=== PATIENT | male | born 1940 | race Caucasian/White ===

== ENCOUNTER 2022-04-02 11:18 | Emergency (ER) | payer MEDICARE ==
[2022-04-02 11:37] VITALS: TEMP 98.7
[2022-04-02 11:58] LABS: Basophils % (A) 0 %; Eosinophils # (A) 0.2 k/uL (0-0.7); Eosinophils % (A) 2 %; HCT 40.1 % (39.0-53.0); HGB 14.9 gm/dL (13.0-17.5); Lymphocytes # (A) 1.5 k/uL (1.0-4.8); Lymphocytes % (A) 17 %; MCH 32.1 pg (25.0-35.0); MCHC 37.2 g/dL (31.0-37.0); MCV 86.2 fL (80.0-100.0); Mean Platelet Volume 7.5; Monocytes # (A) 0.5 k/uL (0-1.0); Monocytes % (A) 5 %; Neutrophils # (A) 6.8 k/uL (1.3-7.7); Neutrophils % (A) 74 %; Platelet Count 305 k/uL (150-450); Poikilocytosis Slight; RBC 4.66 m/uL (4.30-5.90); RDW 13.4 % (11.5-15.5); WBC 9.1 k/uL (3.8-10.6)
[2022-04-02 12:08] LABS: ALT 41 U/L (4-49); AST 44 U/L (17-59); African American GFR (CKD) >90 (>60 ml/min/1.73 sqM); Albumin 3.6 g/dL (3.5-5.0); Alkaline Phosphatase 104 U/L (38-126); Anion Gap 11 mmol/L; Blood Urea Nitrogen 27 mg/dL (9-20); Carbon Dioxide 26 mmol/L (22-30); Chloride 93 mmol/L (98-107); Glucose 327 mg/dL (74-99); Non-African American GFR(CKD) >90 (>60 ml/min/1.73 sqM); Potassium 4.2 mmol/L (3.5-5.1); Sodium 130 mmol/L (137-145); Total Bilirubin 1.6 mg/dL (0.2-1.3); Total Protein 6.7 g/dL (6.3-8.2)
[2022-04-02 12:12] LABS: INR 1.1 (<1.2); Partial Thromboplastin Time 25.7 sec (22.0-30.0); Prothrombin Time 11.6 sec (9.0-12.0)
--- NOTE | 2022-04-02 12:16 | XR ---
EXAMINATION TYPE: XR chest 2V DATE OF EXAM: 04/02/2022 COMPARISON: NONE HISTORY: Cough TECHNIQUE: Frontal and lateral views of the chest are obtained. FINDINGS: There is prominence interstitium, patchy densities are present within the bilateral lungs. No evident pneumothorax or pleural effusion. The aorta is dense. The cardiac silhouette size is with in normal limits. There are coronary artery calcifications. The osseous structures are intact, there is a spinal curvature. IMPRESSION: Interstitial lung disease, difficult to exclude pneumonia versus active interstitial dis ease, coronary artery disease, follow-up suggested
[2022-04-02] MEDS ORDERED: SODIUM CHLORIDE 0.9% 1,000 ML IV ONE (13:21)
--- NOTE | 2022-04-02 13:26 | ED ---
General Adult HPI - General Chief complaint: Recheck/Abnormal Lab/Rx Stated complaint: Cough Time Seen by Provider: 04/02/22 12:07 Source: patient, family, RN notes reviewed, old records reviewed Mode of arrival: ambulatory Limitations: no limitations - History of Present Illness Initial comments: 81-year-old male who had presented from urgent care with elevated blood sugar, generalized weakness, and cough. Patient has been sick for approximately 2 or 3 weeks. He was seen at urgent care for weakness and cough and noted to have an elevated blood sugar at 380. No prior history of diabetes. No daily medications. He has had a productive cough. No fever. He's had poor appetite. - Related Data Allergies Allergy/AdvReac Type Severity Reaction Status Date / Time No Known Allergies Allergy Verified 04/02/22 11:37 Review of Systems ROS Statement: Those systems with pertinent positive or pertinent negative responses have been documented in the HPI. ROS Other: All systems not noted in ROS Statement are negative. Past Medical History Past Medical History: No Reported History History of Any Multi-Drug Resistant Organisms: None Reported Past Surgical History: No Surgical Hx Reported Past Psychological History: No Psychological Hx Reported Smoking Status: Never smoker Past Alcohol Use History: None Reported Past Drug Use History: None Reported General Exam Limitations: no limitations General appearance: alert, in no apparent distress Head exam: Present: atraumatic, normocephalic Eye exam: Present: normal appearance, PERRL ENT exam: Present: mucous membranes dry Neck exam: Present: normal inspection. Absent: tenderness Respiratory exam: Present: normal lung sounds bilaterally. Absent: respiratory distress, wheezes, rales Cardiovascular Exam: Present: regular rate, normal rhythm GI/Abdominal exam: Present: soft. Absent: distended, tenderness, guarding Extremities exam: Present: normal inspection, normal capillary refill. Absent: pedal edema Neurological exam: Present: alert, CN II-XII intact. Absent: motor sensory deficit Psychiatric exam: Present: normal affect, normal mood Skin exam: Present: warm, dry, intact. Absent: cyanosis, diaphoretic Course Vital Signs 04/02/22 11:32 Temperature 98.7 F Pulse Rate 103 H Respiratory 22 Rate Blood Pressure 137/91 O2 Sat by Pulse 95 Oximetry EKG Findings - EKG Comments: EKG Findings:: EKG: Sinus rhythm, right bundle branch block rate of 86, ME interval 166, QRS duration 139, QTC 470, tremor artifact, poor baseline, I do not see any ST segment elevation. No old for comparison. Medical Decision Making - Medical Decision Making 81-year-old male presenting from home. Patient was seen at urgent care and sent to the emergency department with cough, generalized weakness, and hyperglycemia. No prior history of diabetes. Blood sugars at 320. Patient does appear dehydrated. He also tested positive for coronavirus which is likely the cause o f his symptoms. He is outside of the treatment window. He is given IV fluids in the emergency department. He should follow closely with primary care physician regarding hyperglycemia and likely new diagnosis of diabetes. - Lab Data Result diagrams: 04/02/22 11:41 04/02/22 11:41 Lab Results 04/02/22 04/02/22 04/02/22 Range/Units 11:41 11:41 11:41 WBC 9.1 (3.8-10.6) k/uL RBC 4.66 (4.30-5.90) m/uL Hgb 14.9 (13.0-17.5) gm/dL Hct 40.1 (39.0-53.0) % MCV 86.2 (80.0-100.0) fL MCH 32.1 (25.0-35.0) pg MCHC 37.2 H (31.0-37.0) g/dL RDW 13.4 (11.5-15.5) % Plt Count 305 (150-450) k/uL MPV 7.5 Neutrophils % 74 % Lymphocytes % 17 % Monocytes % 5 % Eosinophils % 2 % Basophils % 0 % Neutrophils # 6.8 (1.3-7.7) k/uL Lymphocytes # 1.5 (1.0-4.8) k/uL Monocytes # 0.5 (0-1.0) k/uL Eosinophils # 0.2 (0-0.7) k/uL Basophils # 0.0 (0-0.2) k/uL Poikilocytosis Slight PT 11.6 (9.0-12.0) sec INR 1.1 (<1.2) APTT 25.7 (22.0-30.0) sec Sodium 130 L (137-145) mmol/L Potassium 4.2 (3.5-5.1) mmol/L Chloride 93 L (98-107) mmol/L Carbon Dioxide 26 (22-30) mmol/L Anion Gap 11 mmol/L BUN 27 H (9-20) mg/dL Creatinine 0.65 L (0.66-1.25) mg/dL Est GFR (CKD-EPI)AfAm >90 (>60 ml/min/1.73 sqM) Est GFR (CKD-EPI)NonAf >90 (>60 ml/min/1.73 sqM) Glucose 327 H (74-99) mg/dL Calcium 9.0 (8.4-10.2) mg/dL Total Bilirubin 1.6 H (0.2-1.3) mg/dL AST 44 (17-59) U/L ALT 41 (4-49) U/L Alkaline Phosphatase 104 (38-126) U/L Troponin I (0.000-0.034) ng/mL Total Protein 6.7 (6.3-8.2) g/dL Albumin 3.6 (3.5-5.0) g/dL Coronavirus (PCR) (Not Detectd) 04/02/22 04/02/22 Range/Units 11:41 11:48 WBC (3.8-10.6) k/uL RBC (4.30-5.90) m/uL Hgb (13.0-17.5) gm/dL Hct (39.0-53.0) % MCV (80.0-100.0) fL MCH (25.0-35.0) pg MCHC (31.0-37.0) g/dL RDW (11.5-15.5) % Plt Count (150-450) k/uL MPV Neutrophils % % Lymphocytes % % Monocytes % % Eosinophils % % Basophils % % Neutrophils # (1.3-7.7) k/uL Lymphocytes # (1.0-4.8) k/uL Monocytes # (0-1.0) k/uL Eosinophils # (0-0.7) k/uL Basophils # (0-0.2) k/uL Poikilocytosis PT (9.0-12.0) sec INR (<1.2) APTT (22.0-30.0) sec Sodium (137-145) mmol/L Potassium (3.5-5.1) mmol/L Chloride (98-107) mmol/L Carbon Dioxide (22-30) mmol/L Anion Gap mmol/L BUN (9-20) mg/dL Creatinine (0.66-1.25) mg/dL Est GFR (CKD-EPI)AfAm (>60 ml/min/1.73 sqM) Est GFR (CKD-EPI)NonAf (>60 ml/min/1.73 sqM) Glucose (74-99) mg/dL Calcium (8.4-10.2) mg/dL Total Bilirubin (0.2-1.3) mg/dL AST (17-59) U/L ALT (4-49) U/L Alkaline Phosphatase (38-126) U/L Troponin I <0.012 (0.000-0.034) ng/mL Total Protein (6.3-8.2) g/dL Albumin (3.5-5.0) g/dL Coronavirus (PCR) Detected A (Not Detectd) Disposition Clinical Impression: Diabetes mellitus, Dehydration, COVID-19 Disposition: HOME SELF-CARE Condition: Fair Instructions (If sedation given, give patient instructions): Type 2 Diabetes in Adults: New Diagnosis (DC), COVID-19 (Coronavirus Disease 2019) (ED) Is patient prescribed a controlled substance at d/c from ED?: No Referrals: None,Stated [REFERRING] - 1-2 days Aryan Doll MD [STAFF PHYSICIAN] - 1-2 days Fernando Moran MD [REFERRING] - 1-2 days Time of Disposition: 14:48
[2022-04-02 14:51] LABS: Glucose,Whole Blood 278 mg/dL (70-110)
[2022-04-02 15:34] VITALS: BP 147/88; PULSE 88; RESP 17
== END 2022-04-02 15:34 | disposition home or self-care (01) ==
LOC: EC 11:18
DX: U07.1 COVID-19 (principal); E86.0 Dehydration; E11.9 Type 2 diabetes mellitus without complications
CPT/HCPCS: 36415; 71046; 80053; 84484; 85025; 85610; 85730; 87635; 93005; 96360; 99285

== ENCOUNTER 2023-07-05 19:32 | Inpatient (IN) | payer MEDICARE ==
[2023-07-05] MEDS ORDERED: SODIUM CHLORIDE 0.9% 500 ML 500 ML IV STA (20:11)
--- NOTE | 2023-07-05 20:12 | ED ---
General Adult HPI - General Chief complaint: Weakness Stated complaint: Weakness -sent urgentcare Time Seen by Provider: 07/05/23 19:55 Source: family Mode of arrival: wheelchair Limitations: altered mental status - History of Present Illness Initial comments: 82-year-old male with history of type 2 diabetes and glaucoma presenting with chief complaint of weakness. Starting at 4 PM today the patient became suddenly weak and shaky. His daughter and took him to urgent care who advised that he report to the ER. At baseline he is oriented to person place, sometimes struggles with time. He is normally able to walk without assistance or with min imal assistance. He told his family "I do not feel good" but could not specify why he did not feel good. At this time patient states that he feels fine and does not have any complaints. He denies chest pain, difficulty breathing, abdominal pain, nausea, vomiting, headache, neck pain, vision or hearing changes, numbness, tingling. No recent falls. Patient does not take blood thinners. - Related Data Home Medications Medication Instructions Recorded Confirmed Dorzolamide/Timolol/Pf 1 drop BOTH EYES BID 04/02/22 07/05/23 [Dorzolamide 2%-Timolol 0.5%] Latanoprost [Latanoprost 0.005%] 1 drop BOTH EYES HS 04/02/22 07/05/23 metFORMIN HCL [Glucophage] 1,000 mg PO BID 07/05/23 07/05/23 Allergies Allergy/AdvReac Type Severity Reaction Status Date / Time No Known Allergies Allergy Verified 07/05/23 20:35 Review of Systems ROS Statement: Those systems with pertinent positive or pertinent negative responses have been documented in the HPI. ROS Other: All systems not noted in ROS Statement are negative. Past Medical History Past Medical History: Diabetes Mellitus Additional Past Medical History / Comment(s): glaucoma History of Any Multi-Drug Resistant Organisms: None Reported Past Surgical History: Back Surgery Past Psychological History: No Psychological Hx Reported Smoking Status: Former smoker Past Alcohol Use History: None Reported Past Drug Use History: None Reported General Exam General appearance: alert, in no apparent distress Head exam: Present: atraumatic, normocephalic Eye exam: Present: normal appearance, PERRL, EOMI Pupils: Present: normal accommodation Neck exam: Present: normal inspection Respiratory exam: Present: normal lung sounds bilaterally. Absent: respiratory distress, wheezes, rales, rhonchi, stridor Cardiovascular Exam: Present: regular rate, normal rhythm, normal heart sounds. Absent: systolic murmur, diastolic murmur, rubs, gallop, clicks GI/Abdominal exam: Present: soft, pulsatile mass. Absent: distended, tenderness, guarding, rebound, rigid Extremities exam: Absent: pedal edema Neurological exam: Present: alert, oriented X3 Expanded Patient oriented to: Present: person, place, time Speech: Present: fluid speech Cranial nerves: EOM's Intact: Normal, Tongue Deviation: Normal Motor strength exam: RUE: 5, LUE: 5, RLE: 5, LLE: 5 Eye Response: (4) open spontaneously Motor Response: (6) obeys commands Verbal Response: (5) oriented [place] Total: 15 Psychiatric exam: Present: normal affect, normal mood Skin exam: Present: warm, dry Course Vital Signs 07/05/23 07/05/23 07/05/23 19:35 20:30 22:37 Temperature 98.8 F Pulse Rate 110 H 109 H 105 H Respiratory 18 18 16 Rate Blood Pressure 159/92 149/83 150/94 O2 Sat by Pulse 95 96 95 Oximetry Medical Decision Making - Medical Decision Making EKG shows sinus tachycardia ventricular rate 108. RI interval 205. QRS 124. QT 333. QTc 396. Right bundle branch block. No acute changes from previous EKG. Was pt. sent in by a medical professional or institution (, PA, RUG SCRATCHER, urgent care, hospital, or alf...) When possible be specific @ -Sent by urgent care Did you speak to anyone other than the patient for history (EMS, parent, family, police, friend...)? What history was obtained from this source @ -History is mostly provided by the patient's daughter and at bedside Did you review nursing and triage notes (agree or disagree)? Why? @ -I reviewed and agree with nursing and triage notes Were old charts reviewed (outside hosp., previous admission, EMS record, old EKG, old radiological studies, urgent care reports/EKG's, alf records)? Report findings @ -No old charts were reviewed Differential Diagnosis (chest pain, altered mental status, abdominal pain women, abdominal pain men, vaginal bleeding, weakness, fever, dyspnea, syncope, headach e, dizziness, GI bleed, back pain, seizure, CVA, palpatations, mental health, musculoskeletal)? @ -MDM Differential Weakness: Hypoglycemia, shock, sepsis, hyponatremia, anemia, infection, GA, ETOH, adverse medicine reaction, overdose, stroke. ... This is not meant to be an all- inclusive list EKG interpreted by me (3pts min.). @ -As above X-rays interpreted by me (1pt min.). @ -Chest x-ray shows infiltrate better visualized on the lateral projection posterior lung medial retrocardiac pneumonia or atelectasis. CT interpreted by me (1pt min.). @ -Brain CT showed mild age-related atrophy with no acute intracranial process. 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 Cholelithiasis is also noted U/S interpreted by me (1pt. min.). @ -None done What testing was considered but not performed or refused? (CT, X-rays, U/S, labs)? Why? @ -None What meds were considered but not given or refused? Why? @ -None Did you discuss the management of the patient with other professionals (professionals i.e. , PA, RUG SCRATCHER, lab, RT, psych nurse, public health social worker, operations and maintenance technican, teacher, adult parole officer, correctional case manager)? Give summary @ -I spoke with Dr. Moya who accepted admission Was smoking cessation discussed for >3mins.? @ -No Was critical care preformed (if so, how long)? @ -No Were there social determinants of health that impacted care today? How? (Homelessness, low income, unemployed, alcoholism, drug addiction, transportation, low edu. Level, literacy, decrease access to med. care, senior living, rehab)? @ -No Was there de-escalation of care discussed even if they declined (Discuss DNR or withdrawal of care, Hospice)? DNR status @ -I explained CODE STATUS to the patient. Patient answered no to wanting CPR if needed and no to wanting intubation if needed. He is placed as a NO CODE What co-morbidities impacted this encounter? (DM, HTN, Smoking, COPD, CAD, Cancer, CVA, ARF, Chemo, Hep., AIDS, mental health diagnosis, sleep apnea, morbid obesity)? @ -Diabetes Was patient admitted / discharged? Hospital course, mention meds given and route, prescriptions, significant lab abnormalities, going to OR and other pertinent info. @ -82-year-old male with history of diabetes presenting with chief complaint of weakness and confusion. Family states that this started suddenly around 4 PM today. On exam the patient is alert and oriented x 3. No focal neurological deficits. Lab work shows no leukocytosis, hemoglobin 12.2. Sodium 135 and BUN 37, patient is receiving IV fluids. Glucose 223. Magnesium 1.4, patient receives [address] brain shows no acute intracranial process. CT abdomen and pelvis shows aneurysmal dilatation of the distal abdominal aorta as well as bilateral common iliac arteries. Patient is having no pain and vital signs are stable. Chest x-ray shows infiltrate, patient has been having difficulty swallowing recently likely aspiration pneumonia. He is treated with 1 g Rocephin and 500 mg azithromycin. Patient and family are educated on today's findings and all questions are answered. Patient will be admitted for pneumonia, dehydration, weakness. Vascular surgery consult was placed for aneurysm. Urinalysis is pending at this time. Patient and family are agreeable with this plan. I discussed this case with my attending Dr. Kingston Undiagnosed new problem with uncertain prognosis? @ -No Drug Therapy requiring intensive monitoring for toxicity (Heparin, Nitro, Insulin, Cardizem)? @ -No Were any procedures done? @ -No Diagnosis/symptom? @ -Pneumonia, weakness, dehydration Acute, or Chronic, or Acute on Chronic? @ -Acute Uncomplicated (without systemic symptoms) or Complicated (systemic symptoms)? @ -Complicated Side effects of treatment? @ -No Exacerbation, Progression, or Severe Exacerbation? @ -No Poses a threat to life or bodily function? How? (Chest pain, [place], GA, pneumonia, PE, COPD, DKA, ARF, appy, cholecystitis, CVA, Diverticulitis, Homicidal, Suicidal, threat to staff... and all critical care pts) @ -Yes Diagnosis/symptom? @Aneurysm of the distal aorta Acute, or Chronic, or Acute on Chronic? @Chronic Uncomplicated (without systemic symptoms) or Complicated (systemic symptoms)? @Uncomplicated Side effects of treatment? @None Exacerbation, Progression, or Severe Exacerbation] @No Poses a threat to life or bodily function? @Potentially - Lab Data Result diagrams: 07/05/23 20:35 07/05/23 20:35 Lab Results 07/05/23 07/05/23 07/05/23 Range/Units 20:28 20:35 20:35 WBC 10.0 (3.8-10.6) k/uL RBC 3.82 L (4.30-5.90) m/uL Hgb 12.2 L (13.0-17.5) gm/dL Hct 34.6 L (39.0-53.0) % MCV 90.6 (80.0-100.0) fL MCH 32.0 (25.0-35.0) pg MCHC 35.4 (31.0-37.0) g/dL RDW 12.8 (11.5-15.5) % Plt Count 164 (150-450) k/uL MPV 7.0 Neutrophils % 85 % Lymphocytes % 7 % Monocytes % 5 % Eosinophils % 1 % Basophils % 0 % Neutrophils # 8.5 H (1.3-7.7) k/uL Lymphocytes # 0.7 L (1.0-4.8) k/uL Monocytes # 0.5 (0-1.0) k/uL Eosinophils # 0.1 (0-0.7) k/uL Basophils # 0.0 (0-0.2) k/uL PT 11.7 (10.0-12.5) sec INR 1.1 (<1.2) APTT 26.2 (22.0-30.0) sec Sodium (137-145) mmol/L Potassium (3.5-5.1) mmol/L Chloride (98-107) mmol/L Carbon Dioxide (22-30) mmol/L Anion Gap mmol/L BUN (9-20) mg/dL Creatinine (0.66-1.25) mg/dL Est GFR (CKD-EPI)AfAm (>60 ml/min/1.73 sqM) Est GFR (CKD-EPI)NonAf (>60 ml/min/1.73 sqM) Glucose (74-99) mg/dL POC Glucose (mg/dL) 223 H (70-110) mg/dL POC Glu Core Assembly Supervisor ID Soniya, Gina Plasma Lactic Acid Julio Cesar (0.7-2.0) mmol/L Calcium (8.4-10.2) mg/dL Phosphorus (2.5-4.5) mg/dL Magnesium (1.6-2.3) mg/dL Total Bilirubin (0.2-1.3) mg/dL AST (17-59) U/L ALT (4-49) U/L Alkaline Phosphatase (38-126) U/L Ammonia (<30) umol/L Troponin I (0.000-0.034) ng/mL Total Protein (6.3-8.2) g/dL Albumin (3.5-5.0) g/dL TSH (0.465-4.680) mIU/L 07/05/23 07/05/23 07/05/23 Range/Units 20:35 20:35 20:35 WBC (3.8-10.6) k/uL RBC (4.30-5.90) m/uL Hgb (13.0-17.5) gm/dL Hct (39.0-53.0) % MCV (80.0-100.0) fL MCH (25.0-35.0) pg MCHC (31.0-37.0) g/dL RDW (11.5-15.5) % Plt Count (150-450) k/uL MPV Neutrophils % % Lymphocytes % % Monocytes % % Eosinophils % % Basophils % % Neutrophils # (1.3-7.7) k/uL Lymphocytes # (1.0-4.8) k/uL Monocytes # (0-1.0) k/uL Eosinophils # (0-0.7) k/uL Basophils # (0-0.2) k/uL PT (10.0-12.5) sec INR (<1.2) APTT (22.0-30.0) sec Sodium 135 L (137-145) mmol/L Potassium 4.2 (3.5-5.1) mmol/L Chloride 103 (98-107) mmol/L Carbon Dioxide 22 (22-30) mmol/L Anion Gap 10 mmol/L BUN 37 H (9-20) mg/dL Creatinine 0.90 (0.66-1.25) mg/dL Est GFR (CKD-EPI)AfAm >90 (>60 ml/min/1.73 sqM) Est GFR (CKD-EPI)NonAf 79 (>60 ml/min/1.73 sqM) Glucose 224 H (74-99) mg/dL POC Glucose (mg/dL) (70-110) mg/dL POC Glu Core Assembly Supervisor ID Plasma Lactic Acid Julio Cesar 1.2 (0.7-2.0) mmol/L Calcium 9.3 (8.4-10.2) mg/dL Phosphorus 3.4 (2.5-4.5) mg/dL Magnesium 1.4 L (1.6-2.3) mg/dL Total Bilirubin 1.0 (0.2-1.3) mg/dL AST 24 (17-59) U/L ALT 16 (4-49) U/L Alkaline Phosphatase 87 (38-126) U/L Ammonia <9 (<30) umol/L Troponin I <0.012 (0.000-0.034) ng/mL Total Protein 7.0 (6.3-8.2) g/dL Albumin 4.0 (3.5-5.0) g/dL TSH 4.600 (0.465-4.680) mIU/L Disposition Clinical Impression: Dehydration, Pneumonia, Weakness, Aneurysm of abdominal aorta Disposition: ADMITTED IP TO THIS HOSP Condition: Stable Time of Disposition: 22:00
[2023-07-05 20:31] LABS: Glucose,Whole Blood 223 mg/dL (70-110)
[2023-07-05 20:48] LABS: Basophils % (A) 0 %; Eosinophils # (A) 0.1 k/uL (0-0.7); Eosinophils % (A) 1 %; HCT 34.6 % (39.0-53.0); HGB 12.2 gm/dL (13.0-17.5); Lymphocytes # (A) 0.7 k/uL (1.0-4.8); Lymphocytes % (A) 7 %; MCHC 35.4 g/dL (31.0-37.0); MCV 90.6 fL (80.0-100.0); Monocytes # (A) 0.5 k/uL (0-1.0); Monocytes % (A) 5 %; Neutrophils # (A) 8.5 k/uL (1.3-7.7); Neutrophils % (A) 85 %; Platelet Count 164 k/uL (150-450); RBC 3.82 m/uL (4.30-5.90); RDW 12.8 % (11.5-15.5)
[2023-07-05 20:57] LABS: Lactic Acid, Venous 1.2 mmol/L (0.7-2.0)
[2023-07-05 20:58] LABS: ALT 16 U/L (4-49); AST 24 U/L (17-59); African American GFR (CKD) >90 (>60 ml/min/1.73 sqM); Alkaline Phosphatase 87 U/L (38-126); Anion Gap 10 mmol/L; Blood Urea Nitrogen 37 mg/dL (9-20); Calcium 9.3 mg/dL (8.4-10.2); Carbon Dioxide 22 mmol/L (22-30); Chloride 103 mmol/L (98-107); Glucose 224 mg/dL (74-99); Magnesium 1.4 mg/dL (1.6-2.3); Non-African American GFR(CKD) 79 (>60 ml/min/1.73 sqM); Phosphorus 3.4 mg/dL (2.5-4.5); Potassium 4.2 mmol/L (3.5-5.1); Sodium 135 mmol/L (137-145)
[2023-07-05 21:02] LABS: INR 1.1 (<1.2); Partial Thromboplastin Time 26.2 sec (22.0-30.0); Prothrombin Time 11.7 sec (10.0-12.5)
--- NOTE | 2023-07-05 21:17 | XR ---
EXAMINATION TYPE: XR chest 2V DATE OF EXAM: 07/05/2023 COMPARISON: 04/02/2022 INDICATION: Weakness TECHNIQUE: Frontal and lateral views of the chest are obtained. FINDINGS: The heart size is normal. The pulmonary vasculature is normal. There may be a posterior infiltrate present. Considerable left retrocardiac infiltrate. Pneumonia and atelectasis is within the differential. Follow-up is recommended.. IMPRESSION: 1. Infiltrate better visualized on the lateral projection posterior lung medial retrocardiac pneumoni a or atelectasis. Follow-up is recommended.
--- NOTE | 2023-07-05 21:18 | CT ---
EXAMINATION TYPE: CT brain wo con DATE OF EXAM: 07/05/2023 COMPARISON: None INDICATION: weakness DLP: 1085.4 mGycm, Automated exposure control for dose reduction was used. CONTRAST: None CT of the brain is performed utilizing 3 mm thick sections through the posterior fossa and 3 mm thick sections through the remaining calvarium. Study is performed within 24 hours of arrival to the hosp ital. No abnormal hyperdensity is present to suggest an acute intracranial hemorrhage. No mass lesion is evident. No acute infarcts are evident. Ventricles and sulci are appropriate for the patient age. There is some prominence of the extra-axia l space. Paranasal sinuses and mastoid air cells within the [id number] are clear. IMPRESSION: 1. Mild age-related atrophy.
[2023-07-05] MEDS ORDERED: MAGNESIUM SULFATE-D5W PMX 1 GM in DEXTROSE/WATER 1 100ML.BAG IVPB ONE (21:21)
--- NOTE | 2023-07-05 21:24 | CT ---
EXAMINATION TYPE: CT abdomen pelvis wo con DATE OF EXAM: 07/05/2023 COMPARISON: None INDICATION: strong pulsation DLP: 403.1 mGycm, Automated exposure control for dose reduction was used. CONTRAST: 0 mL of Isovue 300. Study performed without Oral Contrast TECHNIQUE: Axial images were obtained from above the diaphragm to the pubic rami in the axial plane a t 5 mm thick sections. Reconstructed images are reviewed on the computer in the coronal plane. FINDINGS: Limited CT sections are obtained the lung bases. Bibasilar infiltrates are present. This is greater on the left than right. Atelectasis and pneumonia within the differential. Follow-up is recommended.. CT ABDOMEN: Liver: Normal Spleen: Normal Pancreas: Normal Adrenal glands: The adrenal glands are normal. Gallbladder: There is a 1.8 cm calcification near the neck of the gallbladder. Kidneys: No masses are evident. No hydronephrosis is present. There is a 6.6 cm cyst at the inferio r pole right kidney Delayed images were obtained through the kidneys, which remain unremarkable. Aorta: Vascular calcification is within the aorta. There is some fusiform prominence of the distal a bdominal aorta measuring 3.2 cm. The more distal abdominal aorta at the bifurcation is increased AP d imension of 3.5 cm. The transverse dimension is 4.4 cm. There is aneurysmal dilatation of the right c ommon iliac artery measuring 5.6 cm. There is fusiform prominence of the proximal left internal and d istal left external iliac artery. Prominence of the right common iliac artery is also present measuri ng 2.4 cm. Inferior vena cava: Normal. CT PELVIS: Loops of bowel within the abdomen and pelvis are normal. This study is without oral contrast limi ting bowel evaluation. Appendix: Normal as visualized. Urinary bladder: Normal. Genitourinary structures: Prostate is prominent Osseous structures: No suspicious lytic or sclerotic lesions. IMPRESSION: 1. 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 2. Cholelithiasis
[2023-07-05] MEDS ORDERED: PNEUMONIA PROTOCOL UTILIZED 1 EACH MISC PO PRN (21:44)
[2023-07-05] MEDS ORDERED: AZITHROMYCIN 500 MG in SODIUM CHLORIDE 0.9% 250 ML IVPB STA (21:44)
[2023-07-05] MEDS ORDERED: DORZOLAMIDE BOTH EYES SCH (21:45)
[2023-07-05] MEDS ORDERED: TIMOLOL BOTH EYES SCH (21:45)
[2023-07-05] MEDS ORDERED: ACETAMINOPHEN TAB 325 MG TAB PO PRN (21:52)
[2023-07-05] MEDS ORDERED: HYDROcodone/APAP 5-325MG 1 EACH TAB PO PRN (21:52)
[2023-07-05] MEDS ORDERED: NALOXONE 0.4 MG/ML 1 ML VIAL IV PRN (21:52)
[2023-07-05] MEDS: SODIUM CHLORIDE 0.9% 1,000 ML IV SCH (22:22)
[2023-07-05] MEDS: LATANOPROST 0.005% OPHTH DROPS 2.5 ML BTL BOTH EYES SCH (22:23)
[2023-07-05] MEDS: DORZOLAMIDE-TIMOLOL 2.23%/0.68 10ML BTL BOTH EYES SCH (22:23)
[2023-07-05 22:47] LABS: Appearance,Urine Clear (Clear); Bilirubin,Urine Negative (Negative); Blood,Urine Negative (Negative); Color,Urine Light Yellow; Glucose,Urine (UA) 2+ (Negative); Ketones,Urine 1+ (Negative); Leukocyte Esterase,Urine Negative (Negative); Nitrite,Urine Negative (Negative); PH, Urine 6.5 (5.0-8.0); Protein,Urine Trace (Negative); Specific Gravity,Urine 1.019 (1.001-1.035); Urobilinogen,Urine <2.0 mg/dL (<2.0)
[2023-07-06] MEDS: DORZOLAMIDE-TIMOLOL 2.23%/0.68 10ML BTL BOTH EYES SCH ×2 (08:45→21:49)
[2023-07-06] MEDS ORDERED: DEXTROSE 50% SYRINGE 50 ML IVP PRN ×2 (09:26)
[2023-07-06 12:12] LABS: Glucose,Whole Blood 307 mg/dL (70-110)
--- NOTE | 2023-07-06 12:13 | P.HPIM ---
History of Present Illness H&P Date: 07/06/23 History of present illness; patient is a 82-year-old gentleman past medical significant for diabetes mellitus, glaucoma presented to the ER for generalized weakness. Patient stated that he was all right yesterday afternoon when started feeling weak. Patient was shaking and felt cold. There was no complaint of shortness of breath. Denied any chest pain. There was no complaint nausea, vomiting abdominal pain. There was no complaint of cough. Denied any complaint of urine hesitancy urgency or incontinence. Patient kept saying to his family that he does not feel good. Patient was taken to urgent care, where he was referred to the ER Initial lab work done in the ER showed WBC 10, hemoglobin 12.2, platelet count 164, sodium 135, potassium 4.2, BUN 37, creatinine 0.90 calcium 9.3, phosphorus 3.4, magnesium 1.4 UA negative for infection Influenza A not detected Influenza B not detected RSV not detected COVID-19 not detected EKG done in the ER showed heart rate of 108, no ST segment elevation or depression seen, no T-wave inversions seen. 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 Denied any sore throat. CARDIOVASCULAR: As mentioned above PULMONARY: No shortness of breath, no cough, no hemoptysis. GASTROINTESTINAL: No diarrhea, no nausea, no vomiting, no abdominal pain. NEUROLOGICAL: As mentioned HPI HEMATOLOGICAL: Denies any bleeding or petechiae. GENITOURINARY: Denies any burning micturition, frequency, or urgency. MUSCULOSKELETAL/RHEUMATOLOGICAL: Denies any joint pain, swelling, or any muscle pain. ENDOCRINE: Denies any polyuria or polydipsia. The rest of the 14-point review of systems is negative. PHYSICAL EXAMINATION: GENERAL: The patient is alert and oriented x3, not in any acute distress. Well developed, well nourished. HEENT: Pupils are round and equally reacting to light. EOMI. No scleral icterus. No conjunctival pallor. Normocephalic, atraumatic. No pharyngeal erythema. No th yromegaly. CARDIOVASCULAR: S1 and S2 present. No murmurs, rubs, or gallops. PULMONARY: Chest is clear to auscultation, no wheezing or crackles. ABDOMEN: Soft, nontender, nondistended, normoactive bowel sounds. No palpable organomegaly. MUSCULOSKELETAL: No joint swelling or deformity. EXTREMITIES: No cyanosis, clubbing, or pedal edema. NEUROLOGICAL: Gross neurological examination did not reveal any focal deficits. SKIN: No rashes. Assessment and plan Bacterial pneumonia Generalized weakness Aneurysmal dilatation of abdominal aorta Hypomagnesemia [id number] diabetes mellitus Monitor vital signs Monitor CBC Monitor CMP Continue telemetry monitoring Continue IV fluids Continue IV Rocephin and azithromycin Resume home meds Monitor blood sugar levels, continue sliding scale insulin Vascular surgery consulted Labs and medication were reviewed.. Continue same treatment. Continue with symptomatic treatment. Resume home medication. Monitor labs and vitals. DVT and GI prophylaxis. Further recommendations as per clinical course of the patient Dictation was produced using [employer] dictation software. please excuse any grammatical, word or spelling errors. Past Medical History Past Medical History: Diabetes Mellitus Additional Past Medical History / Comment(s): glaucoma History of Any Multi-Drug Resistant Organisms: None Reported Past Surgical History: Back Surgery Past Anesthesia/Blood Transfusion Reactions: No Reported Reaction Past Psychological History: No Psychological Hx Reported Smoking Status: Former smoker Past Alcohol Use History: None Reported Past Drug Use History: None Reported Medications and Allergies Home Medications Medication Instructions Recorded Confirmed Type Dorzolamide/Timolol/Pf 1 drop BOTH EYES BID 04/02/22 07/05/23 History [Dorzolamide 2%-Timolol 0.5%] Latanoprost [Latanoprost 0.005%] 1 drop BOTH EYES HS 04/02/22 07/05/23 History metFORMIN HCL [Glucophage] 1,000 mg PO BID 07/05/23 07/05/23 History Allergies Allergy/AdvReac Type Severity Reaction Status Date / Time No Known Allergies Allergy Verified 07/05/23 20:35 Physical Exam Vitals: Vital Signs Temp Pulse Pulse Resp BP BP Pulse Ox 07/06/23 08:00 97.9 F 78 16 131/73 97 07/06/23 03:09 98.1 F 76 18 129/71 97 07/06/23 02:45 96 19 07/05/23 23:05 99.5 F 96 19 134/80 95 07/05/23 22:37 105 H 16 150/94 95 07/05/23 20:30 109 H 18 149/83 96 07/05/23 19:35 98.8 F 110 H 18 159/92 95 Intake and Output 07/05/23 07/06/23 07/06/23 22:59 06:59 14:59 Other: Voiding Method Toilet # Voids 1 Weight 53.07 kg 53.07 kg Results CBC & Chem 7: 07/05/23 20:35 07/05/23 20:35 Labs: Abnormal Lab Results - Last 24 Hours (Table) 07/05/23 07/05/23 07/05/23 Range/Units 20:28 20:35 20:35 RBC 3.82 L (4.30-5.90) m/uL Hgb 12.2 L (13.0-17.5) gm/dL Hct 34.6 L (39.0-53.0) % Neutrophils # 8.5 H (1.3-7.7) k/uL Lymphocytes # 0.7 L (1.0-4.8) k/uL Sodium 135 L (137-145) mmol/L BUN 37 H (9-20) mg/dL Glucose 224 H (74-99) mg/dL POC Glucose (mg/dL) 223 H (70-110) mg/dL Magnesium 1.4 L (1.6-2.3) mg/dL Urine Protein (Negative) Urine Glucose (UA) (Negative) Urine Ketones (Negative) 07/05/23 Range/Units 22:31 RBC (4.30-5.90) m/uL Hgb (13.0-17.5) gm/dL Hct (39.0-53.0) % Neutrophils # (1.3-7.7) k/uL Lymphocytes # (1.0-4.8) k/uL Sodium (137-145) mmol/L BUN (9-20) mg/dL Glucose (74-99) mg/dL POC Glucose (mg/dL) (70-110) mg/dL Magnesium (1.6-2.3) mg/dL Urine Protein Trace H (Negative) Urine Glucose (UA) 2+ H (Negative) Urine Ketones 1+ H (Negative) Thrombosis Risk Factor Assmnt - Choose All That Apply Any of the Below Risk Factors Present?: No Other Risk Factors: No Each Risk Factor Represents 3 Points: Age 75 years or older Thrombosis Risk Factor Assessment Total Risk Factor Score: 3 Thrombosis Risk Factor Assessment Level: Very Low Risk
[2023-07-06] MEDS: INSULIN ASPART (NovoLOG) 100 UNIT/ML VIAL SQ SCH ×3 (12:25→21:40)
--- NOTE | 2023-07-06 12:42 | P.GSCN ---
History of Present Illness Consult date: 07/06/23 History of present illness: Patient is an 82-year-old male with past oral history including diabetes, glaucoma, who presented to the hospital after not feeling well and feeling weak. He doesn't quite remember the significant things are brought into the hospital. He denies any significant shortness of breath or chest pain. Upon workup and evaluation he underwent a computed tomography scan noncontrast which did show aneurysmal disease in the common and bilateral iliac arteries. In discussion with the patient who is now alert and oriented along with family the bedside he does not recall being told he has this. He has a remote history of smoking. He denies any family history that he is aware of. Review of Systems 14 point review of systems performed, pertinent positives and negatives per the HPI Past Medical History Past Medical History: Diabetes Mellitus Additional Past Medical History / Comment(s): glaucoma History of Any Multi-Drug Resistant Organisms: None Reported Past Surgical History: Back Surgery Past Anesthesia/Blood Transfusion Reactions: No Reported Reaction Past Psychological History: No Psychological Hx Reported Smoking Status: Former smoker Past Alcohol Use History: None Reported Past Drug Use History: None Reported Medications and Allergies Home Medications Medication Instructions Recorded Confirmed Type Dorzolamide/Timolol/Pf 1 drop BOTH EYES BID 04/02/22 07/05/23 History [Dorzolamide 2%-Timolol 0.5%] Latanoprost [Latanoprost 0.005%] 1 drop BOTH EYES HS 04/02/22 07/05/23 History metFORMIN HCL [Glucophage] 1,000 mg PO BID 07/05/23 07/05/23 History Allergies Allergy/AdvReac Type Severity Reaction Status Date / Time No Known Allergies Allergy Verified 07/05/23 20:35 Surgical - Exam Vital Signs Temp Pulse Resp BP Pulse Ox 98.8 F 110 H 18 159/92 95 07/05/23 19:35 07/05/23 19:35 07/05/23 19:35 07/05/23 19:35 07/05/23 19:35 Genitals a pleasant cooperative male in no acute distress. Heart is regular. Lungs are clear. Abdomen is soft. Hearing aids. Pulsatile mass in the right lower midabdomen. Palpable femoral pulses bilaterally. Palpable right DP pulse. Difficult to palpate left DP pulse Results Noncontrasted computed tomography scan is reviewed. There is significant sizable aneurysmal disease, abdominal aortic aneurysm measuring 3.5 cm right common iliac measuring 2.4 cm, left common iliac measuring 5.6 cm - Labs 07/05/23 20:35 07/05/23 20:35 Abnormal Lab Results - Last 24 Hours (Table) 07/05/23 07/05/23 07/05/23 Range/Units 20:28 20:35 20:35 RBC 3.82 L (4.30-5.90) m/uL Hgb 12.2 L (13.0-17.5) gm/dL Hct 34.6 L (39.0-53.0) % Neutrophils # 8.5 H (1.3-7.7) k/uL Lymphocytes # 0.7 L (1.0-4.8) k/uL Sodium 135 L (137-145) mmol/L BUN 37 H (9-20) mg/dL Glucose 224 H (74-99) mg/dL POC Glucose (mg/dL) 223 H (70-110) mg/dL Magnesium 1.4 L (1.6-2.3) mg/dL Urine Protein (Negative) Urine Glucose (UA) (Negative) Urine Ketones (Negative) 07/05/23 07/06/23 Range/Units 22:31 12:10 RBC (4.30-5.90) m/uL Hgb (13.0-17.5) gm/dL Hct (39.0-53.0) % Neutrophils # (1.3-7.7) k/uL Lymphocytes # (1.0-4.8) k/uL Sodium (137-145) mmol/L BUN (9-20) mg/dL Glucose (74-99) mg/dL POC Glucose (mg/dL) 307 H (70-110) mg/dL Magnesium (1.6-2.3) mg/dL Urine Protein Trace H (Negative) Urine Glucose (UA) 2+ H (Negative) Urine Ketones 1+ H (Negative) Diabetes panel 07/05/23 Range/Units 20:35 Sodium 135 L (137-145) mmol/L Potassium 4.2 (3.5-5.1) mmol/L Chloride 103 (98-107) mmol/L Carbon Dioxide 22 (22-30) mmol/L BUN 37 H (9-20) mg/dL Creatinine 0.90 (0.66-1.25) mg/dL Glucose 224 H (74-99) mg/dL Calcium 9.3 (8.4-10.2) mg/dL AST 24 (17-59) U/L ALT 16 (4-49) U/L Alkaline Phosphatase 87 (38-126) U/L Total Protein 7.0 (6.3-8.2) g/dL Albumin 4.0 (3.5-5.0) g/dL Thyroid panel 07/05/23 Range/Units 20:35 TSH 4.600 (0.465-4.680) mIU/L Calcium panel 07/05/23 Range/Units 20:35 Calcium 9.3 (8.4-10.2) mg/dL Phosphorus 3.4 (2.5-4.5) mg/dL Albumin 4.0 (3.5-5.0) g/dL Pituitary panel 07/05/23 Range/Units 20:35 Sodium 135 L (137-145) mmol/L Potassium 4.2 (3.5-5.1) mmol/L Chloride 103 (98-107) mmol/L Carbon Dioxide 22 (22-30) mmol/L BUN 37 H (9-20) mg/dL Creatinine 0.90 (0.66-1.25) mg/dL Glucose 224 H (74-99) mg/dL Calcium 9.3 (8.4-10.2) mg/dL TSH 4.600 (0.465-4.680) mIU/L Adrenal panel 07/05/23 Range/Units 20:35 Sodium 135 L (137-145) mmol/L Potassium 4.2 (3.5-5.1) mmol/L Chloride 103 (98-107) mmol/L Carbon Dioxide 22 (22-30) mmol/L BUN 37 H (9-20) mg/dL Creatinine 0.90 (0.66-1.25) mg/dL Glucose 224 H (74-99) mg/dL Calcium 9.3 (8.4-10.2) mg/dL Total Bilirubin 1.0 (0.2-1.3) mg/dL AST 24 (17-59) U/L ALT 16 (4-49) U/L Alkaline Phosphatase 87 (38-126) U/L Total Protein 7.0 (6.3-8.2) g/dL Albumin 4.0 (3.5-5.0) g/dL Assessment and Plan 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 Briefly discuss with family the options and indications of having such large aneurysmal disease and the typical recommendations for repair. The patient is not overly desirous of surgery of this point, he is willing to undergo further imaging to allow for further delineation of possible recommendations and surgical options. We'll have further discussion regarding options pending images.
[2023-07-06] MEDS: SODIUM CHLORIDE 0.9% 1,000 ML IV SCH (15:23)
[2023-07-06 17:03] LABS: Glucose,Whole Blood 214 mg/dL (70-110)
[2023-07-06] MEDS: AZITHROMYCIN 500 MG in SODIUM CHLORIDE 0.9% 250 ML IVPB SCH (17:56)
--- NOTE | 2023-07-06 20:24 | CT ---
EXAMINATION TYPE: CT angio abdomen pelvis DATE OF EXAM: 07/06/2023 COMPARISON: 07/05/2023 INDICATION: aortoiliac aneurysm DLP: 519.7 mGycm, Automated exposure control for dose reduction was used. CONTRAST: 100ml mL of Isovue 370. Study performed without Oral Contrast TECHNIQUE: Axial images were obtained from above the diaphragm to the pubic rami in the axial plane a t 5 mm thick sections. Reconstructed images are reviewed on the computer in the coronal plane. Thre e-D reconstructed images performed by the technologist on separate computer reviewed. FINDINGS: Limited CT sections are obtained the lung bases. Minimal infiltrate may be at the left base. Correlat e for atelectasis. . CT ABDOMEN: Liver: Normal Spleen: Normal Pancreas: Normal Adrenal glands: The adrenal glands are normal. Gallbladder: There is a large gallstone present. Kidneys: No masses are evident. No hydronephrosis is present. There is a 6.7 cm cyst inferior pole right kidney Aorta: Vascular calcification is within the aorta. There is distal abdominal aortic aneurysm extendi ng into the aortic bifurcation. This has an AP diameter of 3.7 cm with a transverse dimension of 4.6 cm. There is marked dilatation of the proximal left common iliac artery measuring 5.6 cm. There is an eurysmal dilatation of the proximal right iliac artery measuring 2.4 cm. Aneurysm extends into the le ft external iliac artery with prominence of the internal left iliac artery. Inferior vena cava: Normal. CT PELVIS: Loops of bowel within the abdomen and pelvis are normal. This study is without oral contrast limi ts bowel evaluation. Fecal debris is within the colon. Appendix: Not identified. Urinary bladder: Normal. Genitourinary structures: Prostate is somewhat prominent. Osseous structures: No suspicious lytic or sclerotic lesions. IMPRESSION: 1. Aneurysmal dilatation distal abdominal aorta extending into the iliac vessels larger on the right with marked dilatation of the left common iliac artery. 2. No contrast is identified as the iliac aneurysms. It is unclear whether this is a contrast timing or obstruction. Clinical correlation recommended. A [place] critical message alert has been initiated for Jacqueline Moya via the [employer] Critical Results System on 07/06/2023 8:21 PM. This message alert has been sent to Jacqueline Moya v ia the preferences provided by the clinician for the receipt of Radiology Critical Findings. Message ID [id number].
[2023-07-06 20:49] LABS: Glucose,Whole Blood 157 mg/dL (70-110)
[2023-07-06] MEDS: LATANOPROST 0.005% OPHTH DROPS 2.5 ML BTL BOTH EYES SCH (21:49)
[2023-07-07] MEDS: SODIUM CHLORIDE 0.9% 1,000 ML IV SCH (02:08)
[2023-07-07 05:53] LABS: Glucose,Whole Blood 118 mg/dL (70-110)
[2023-07-07] MEDS: INSULIN ASPART (NovoLOG) 100 UNIT/ML VIAL SQ SCH ×4 (05:53→21:57)
[2023-07-07 08:13] VITALS: RESP 16
[2023-07-07] MEDS: DORZOLAMIDE-TIMOLOL 2.23%/0.68 10ML BTL BOTH EYES SCH ×2 (08:55→21:55)
[2023-07-07 10:27] LABS: HCT 33.3 % (39.6-50.0); MCV 93.8 FL (80.0-97.0); NRBC Per 100 WBC 0 X 10*3/uL (0.00-0.01); Platelet Count 144 X 10*3/uL (140-440); RBC 3.55 X 10*6/uL (4.40-5.60); RDW 13.2 % (11.5-14.5); WBC 6.83 X 10*3/uL (4.50-10.00)
[2023-07-07 11:08] LABS: ALT 9 U/L (10-49); AST 17 U/L (14-35); Albumin 3.5 g/dL (3.8-4.9); Alkaline Phosphatase 65 U/L (41-126); BUN/Creat Ratio 32.62 Ratio (12.00-20.00); Blood Urea Nitrogen 26.1 mg/dL (9.0-27.0); Carbon Dioxide 19.6 mmol/L (21.6-31.8); Chloride 105 mmol/L (96-109); Globulin 2.5 g/dL (1.6-3.3); Glucose 112 mg/dL (70-110); Potassium 4.1 mmol/L (3.5-5.5); Sodium 138 mmol/L (135-145); Total Bilirubin 0.5 mg/dL (0.3-1.2)
--- NOTE | 2023-07-07 11:52 | P.PN ---
Subjective Progress Note Date: 07/07/23 patient is a 82-year-old gentleman past medical significant for diabetes mellitus, glaucoma presented to the ER for generalized weakness. Patient stated that he was all right yesterday afternoon when started feeling weak. Patient was shaking and felt cold. There was no complaint of shortness of breath. Denied any chest pain. There was no complaint nausea, vomiting abdominal pain. There was no complaint of cough. Denied any complaint of urine hesitancy urgency or incontinence. Patient kept saying to his family that he does not feel good. Patient was taken to urgent care, where he was referred to the ER Initial lab work done in the ER showed WBC 10, hemoglobin 12.2, platelet count 164, sodium 135, potassium 4.2, BUN 37, creatinine 0.90 calcium 9.3, phosphorus 3.4, magnesium 1.4 UA negative for infection Influenza A not detected Influenza B not detected RSV not detected COVID-19 not detected EKG done in the ER showed heart rate of 108, no ST segment elevation or depression seen, no T-wave inversions seen. Chest x-ray done in the ER showed infiltrate better visualized on the lateral pr ojection posterior lung medial retrocardiac pneumonia or atelectasis CT head done showed no acute intracranial process, mild age-related atrophy CT abdomen showed aneurysmal dilatation of the distal abdominal aorta and mild aneurysmal dilatation of the left common Ilac artery Patient admitted to internal medicine service 07/07. Patient seen and examined. Vascular surgery ordered CTA abdominal pelvis which showed aneurysmal dilatation distal abdominal aorta extending into the Ilac vessels larger on the right with mild dilatation of the left common Ilac artery. Still complaining of productive cough. Denies any shortness of breath REVIEW OF SYSTEMS: CONSTITUTIONAL: No fever, no malaise,. CARDIOVASCULAR: No chest pain, no palpitations, no syncope. PULMONARY: As mentioned above GASTROINTESTINAL: No diarrhea, no nausea, no vomiting, no abdominal pain. NEUROLOGICAL: No headaches, no weakness, PHYSICAL EXAMINATION: GENERAL: The patient is alert and oriented x3, not in any acute distress. Well developed, well nourished. HEENT: Pupils are round and equally reacting to light. EOMI. No scleral icterus. No conjunctival pallor. Normocephalic, atraumatic. No pharyngeal erythema. No thyromegaly. CARDIOVASCULAR: S1 and S2 present. No murmurs, rubs, or gallops. PULMONARY: Chest is clear to auscultation, no wheezing or crackles. ABDOMEN: Soft, nontender, nondistended, normoactive bowel sounds. No palpable organomegaly. MUSCULOSKELETAL: No joint swelling or deformity. EXTREMITIES: No cyanosis, clubbing, or pedal edema. NEUROLOGICAL: Gross neurological examination did not reveal any focal deficits. SKIN: No rashes. Assessment and plan Bacterial pneumonia Generalized weakness Aneurysmal dilatation of aortoiiliac Hypomagnesemia [id number] diabetes mellitus Monitor vital signs Monitor CBC Monitor CMP Continue telemetry monitoring DC fluids Continue IV Rocephin and azithromycin Monitor blood sugar levels, continue sliding scale insulin Vascular surgery evaluated the patient, ordered repeat CTA abdominal pelvis, patient at this time is not very desirous of surgery, vascular surgery will discuss with patient family and patient's family Labs and medication were reviewed.. Continue same treatment. Continue with symptomatic treatment. Resume home medication. Monitor labs and vitals. DVT and GI prophylaxis. Further recommendations as per clinical course of the patient Dictation was produced using [employer] dictation software. please excuse any g rammatical, word or spelling errors. Objective - Vital Signs Vital signs: Vital Signs Temp 97.7 F 07/07/23 08:00 Pulse 69 07/07/23 08:00 Resp 16 07/07/23 08:00 BP 132/74 07/07/23 08:00 Pulse Ox 96 07/07/23 08:00 FiO2 Intake & Output 07/06/23 07/07/23 07/07/23 18:59 06:59 18:59 Intake Total 240 Balance 240 Intake: Oral 240 Other: Voiding Method Toilet # Voids 1 1 # Bowel Movements 1 1 - Labs CBC & Chem 7: 07/07/23 06:00 07/07/23 06:00 Labs: Abnormal Lab Results - Last 24 Hours (Table) 07/06/23 07/06/23 07/06/23 Range/Units 12:10 17:01 20:48 POC Glucose (mg/dL) 307 H 214 H 157 H (70-110) mg/dL 07/07/23 Range/Units 05:52 POC Glucose (mg/dL) 118 H (70-110) mg/dL Microbiology - Last 24 Hours (Table) 07/05/23 21:45 Blood Culture - Preliminary Blood
[2023-07-07 12:19] LABS: Glucose,Whole Blood 194 mg/dL (70-110)
--- NOTE | 2023-07-07 14:44 | P.PN ---
Subjective Progress Note Date: 07/07/23 Principal diagnosis: AAA, iliac aneurysm Patient seen and examined. Doing well. No complaints of abdominal pain or new back pain. Objective - Vital Signs Vital signs: Vital Signs Temp 97.7 F 07/07/23 08:00 Pulse 69 07/07/23 08:00 Resp 16 07/07/23 08:00 BP 132/74 07/07/23 08:00 Pulse Ox 96 07/07/23 08:00 FiO2 Intake & Output 07/06/23 07/07/23 07/07/23 18:59 06:59 18:59 Intake Total 240 Balance 240 Intake: Oral 240 Other: Voiding Method Toilet Toilet # Voids 1 1 3 # Bowel Movements 1 1 1 - Exam General: pleasant cooperative male in no acute distress. Heart is regular. Lungs are clear. Abdomen is soft. Hearing aids. Pulsatile mass in the right lower midabdomen. Palpable femoral pulses bilaterally. Palpable right DP pulse. Difficult to palpate left DP pulse - Labs CBC & Chem 7: 07/07/23 06:00 07/07/23 06:00 Labs: Abnormal Lab Results - Last 24 Hours (Table) 07/06/23 07/06/23 07/07/23 Range/Units 17:01 20:48 05:52 RBC (4.40-5.60) X 10*6/uL Hgb (13.0-17.0) g/dL Hct (39.6-50.0) % MPV (9.5-12.2) FL Carbon Dioxide (21.6-31.8) mmol/L Anion Gap (4.00-12.00) mmol/L BUN/Creatinine Ratio (12.00-20.00) Ratio Glucose (70-110) mg/dL POC Glucose (mg/dL) 214 H 157 H 118 H (70-110) mg/dL Hemoglobin A1c (<=6.0) % ALT (10-49) U/L Total Protein (6.2-8.2) g/dL Albumin (3.8-4.9) g/dL Albumin/Globulin Ratio (1.60-3.17) Ratio 07/07/23 07/07/23 07/07/23 Range/Units 06:00 06:00 06:00 RBC 3.55 L (4.40-5.60) X 10*6/uL Hgb 11.0 L (13.0-17.0) g/dL Hct 33.3 L (39.6-50.0) % MPV 9.0 L (9.5-12.2) FL Carbon Dioxide 19.6 L (21.6-31.8) mmol/L Anion Gap 13.40 H (4.00-12.00) mmol/L BUN/Creatinine Ratio 32.62 H (12.00-20.00) Ratio Glucose 112 H (70-110) mg/dL POC Glucose (mg/dL) (70-110) mg/dL Hemoglobin A1c 6.6 H (<=6.0) % ALT 9 L (10-49) U/L Total Protein 6.0 L (6.2-8.2) g/dL Albumin 3.5 L (3.8-4.9) g/dL Albumin/Globulin Ratio 1.40 L (1.60-3.17) Ratio 07/07/23 Range/Units 12:18 RBC (4.40-5.60) X 10*6/uL Hgb (13.0-17.0) g/dL Hct (39.6-50.0) % MPV (9.5-12.2) FL Carbon Dioxide (21.6-31.8) mmol/L Anion Gap (4.00-12.00) mmol/L BUN/Creatinine Ratio (12.00-20.00) Ratio Glucose (70-110) mg/dL POC Glucose (mg/dL) 194 H (70-110) mg/dL Hemoglobin A1c (<=6.0) % ALT (10-49) U/L Total Protein (6.2-8.2) g/dL Albumin (3.8-4.9) g/dL Albumin/Globulin Ratio (1.60-3.17) Ratio Microbiology - Last 24 Hours (Table) 07/05/23 22:00 Blood Culture - Preliminary Blood 07/05/23 21:45 Blood Culture - Preliminary Blood Assessment and Plan Assessment: Aortobiiliac aneurysmal disease Uncontrolled diabetes Plan: CTA reviewed- AAA distal aorta at the bifurcation measuring 4.6cm and left common iliac artery measuring 5.6cm abutign the internal iliac artery bifurcation. Will require EVAR with MERRILL graft which can be done as outpatient. Follow up in 1-2 weeks in office for discussion and timing of procedure.
[2023-07-07 16:57] LABS: Glucose,Whole Blood 199 mg/dL (70-110)
[2023-07-07] MEDS: AZITHROMYCIN 500 MG in SODIUM CHLORIDE 0.9% 250 ML IVPB SCH (17:52)
[2023-07-07 20:31] LABS: Glucose,Whole Blood 184 mg/dL (70-110)
[2023-07-07] MEDS: LATANOPROST 0.005% OPHTH DROPS 2.5 ML BTL BOTH EYES SCH (21:56)
[2023-07-08 05:57] LABS: Glucose,Whole Blood 118 mg/dL (70-110)
[2023-07-08] MEDS: INSULIN ASPART (NovoLOG) 100 UNIT/ML VIAL SQ SCH (06:00)
[2023-07-08 08:31] LABS: Basophils # (A) 0.04 X 10*3/uL (0.00-0.10); Basophils % (A) 0.7 %; Eosinophils # (A) 0.55 X 10*3/uL (0.04-0.35); Eosinophils % (A) 9.1 %; HCT 34.4 % (39.6-50.0); HGB 11.8 g/dL (13.0-17.0); Lymphocytes # (A) 1.51 X 10*3/uL (0.90-5.00); MCH 30.6 pg (27.0-32.0); MCHC 34.3 g/dL (32.0-37.0); MCV 89.4 FL (80.0-97.0); Mean Platelet Volume 9.3 FL (9.5-12.2); Monocytes # (A) 0.72 X 10*3/uL (0.20-1.00); Monocytes % (A) 11.9 %; NRBC Per 100 WBC 0 X 10*3/uL (0.00-0.01); Neutrophils # (A) 3.19 X 10*3/uL (1.80-7.70); Neutrophils % (A) 52.8 %; Platelet Count 170 X 10*3/uL (140-440); RBC 3.85 X 10*6/uL (4.40-5.60); RDW 13.1 % (11.5-14.5); WBC 6.04 X 10*3/uL (4.50-10.00)
[2023-07-08] MEDS: DORZOLAMIDE-TIMOLOL 2.23%/0.68 10ML BTL BOTH EYES SCH (08:41)
[2023-07-08 08:42] VITALS: BP 141/84; PULSE 66; TEMP 97.5
[2023-07-08 08:49] LABS: ALT 13 U/L (10-49); AST 19 U/L (14-35); Albumin 3.8 g/dL (3.8-4.9); Albumin/Globulin Ratio 1.41 Ratio (1.60-3.17); Alkaline Phosphatase 71 U/L (41-126); BUN/Creat Ratio 26.71 Ratio (12.00-20.00); Blood Urea Nitrogen 18.7 mg/dL (9.0-27.0); Calcium 9.3 mg/dL (8.7-10.3); Carbon Dioxide 24.8 mmol/L (21.6-31.8); Chloride 104 mmol/L (96-109); Globulin 2.7 g/dL (1.6-3.3); Glucose 121 mg/dL (70-110); Potassium 4.1 mmol/L (3.5-5.5); Sodium 139 mmol/L (135-145); Total Bilirubin 0.4 mg/dL (0.3-1.2); Total Protein 6.5 g/dL (6.2-8.2)
[2023-07-08] MEDS ORDERED: guaiFENesin 600 MG TABLET.ER PO SCH (09:45)
--- NOTE | 2023-07-08 10:42 | P.DS ---
Providers Date of admission: 07/05/23 21:59 Expected date of discharge: 07/08/23 Attending physician: Jacqueline Moya Consults: 07/05/23 21:52 Consult Physician Urgent Consulting Provider: Esteban Caldwell Consult Reason/Comments: aneurysm distal abdominal aorta Do you want consulting provider notified?: Yes, Notify in am Primary care physician: [facility] Course: 82-year-old gentleman past medical significant for diabetes mellitus, glaucoma presented to the ER for generalized weakness. Patient stated that he was all right yesterday afternoon when started feeling weak. Patient was shaking and felt cold. There was no complaint of shortness of breath. Denied any chest pain. There was no complaint nausea, vomiting abdominal pain. There was no complaint of cough. Denied any complaint of urine hesitancy urgency or incontinence. Patient kept saying to his family that he does not feel good. Patient was taken to urgent care, where he was referred to the ER Initial lab work done in the ER showed WBC 10, hemoglobin 12.2, platelet count 164, sodium 135, potassium 4.2, BUN 37, creatinine 0.90 calcium 9.3, phosphorus 3.4, magnesium 1.4 UA negative for infection Influenza A not detected Influenza B not detected RSV not detected COVID-19 not detected EKG done in the ER showed heart rate of 108, no ST segment elevation or depression seen, no T-wave inversions seen. 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 Patient seen and examined. Vascular surgery ordered CTA abdominal pelvis which showed aneurysmal dilatation distal abdominal aorta extending into the Il[place] vessels larger on the right with mild dilatation of the left common [place] artery. Still complaining of productive cough. Denies any shortness of breath 07/08: Patient seen and evaluated bedside, patient cleared for discharge or masses with the with outpatient follow-up. Patient remains on room air discharge on oral antibiotics and Mucinex. Patient was receiving IV Rocephin while inpatient CBC and basic metabolic panel reviewed hemodynamically remained stable no overnight events noted patient cleared for discharge by vascular surgery with outpatient follow-up. Patient remains on room air discharge on oral antibiotics and Mucinex. Patient was given IV Rocephin while inpatient CBC and basic metabolic panel reviewed hemodynamically remained stable no overnight events noted patient seen and evaluated bedside, PHYSICAL EXAMINATION: GENERAL: The patient is alert and oriented x3, not in any acute distress. Well developed, well nourished. HEENT: Pupils are round and equally reacting to light. EOMI. No scleral icterus. No conjunctival pallor. Normocephalic, atraumatic. No pharyngeal erythema. No thyromegaly. CARDIOVASCULAR: S1 and S2 present. No murmurs, rubs, or gallops. PULMONARY: Chest is clear to auscultation, no wheezing or crackles. ABDOMEN: Soft, nontender, nondistended, normoactive bowel sounds. No palpable organomegaly. MUSCULOSKELETAL: No joint swellingResolved in regards to community-acquired pneumonia community-acquired, received IV Rocephin and azithromycin transitioned to oral antibiotics upon discharge to complete total 7 day course givenor deformity. EXTREMITIES: No cyanosis, clubbing, or pedal edema. NEUROLOGICAL: Gross neurological examination did not reveal any focal deficits. SKIN: No rashes. Assessment and plan Bacterial community-acquired pneumonia Generalized weakness resolved Aneurysmal dilatation of aortoiiliac Hypomagnesemia resolved resolved, treated , treated [id number] diabetes mellitus * In regards to community-acquired pneumonia, received IV Rocephin and azithromycin transition to oral antibiotics upon discharge. Given Ceftin upon discharge Mucinex provided as well Mucinex provided as well * In regards to abdominal aortic aneurysm CTAIn regards to abdominal aortic aneurysm CTA reviewed, vascular surgery recommend outpatient follow-up information provided reviewed, vascular surgery recommend outpatient follow-up infoGuards to diabetes mellitus Accu-Cheks before meals at bedtime continue metformin upon dischargermation provided * Regards to diabetes mellitus Accu-Cheks ACHS continue metformin upon discharge Patient Condition at Discharge: Fair Plan - Discharge Summary Discharge Rx Participant: No New Discharge Prescriptions: New guaiFENesin [Mucinex] 600 mg PO Q12HR 5 Days #10 tab cefUROXime axetiL [Cefuroxime] 500 mg PO BID 4 Days #8 tab Continue metFORMIN HCL [Glucophage] 1,000 mg PO BID Dorzolamide/Timolol/Pf [Dorzolamide 2%-Timolol 0.5%] 1 drop BOTH EYES BID Latanoprost [Latanoprost 0.005%] 1 drop BOTH EYES HS Discharge Medication List Dorzolamide/Timolol/Pf [Dorzolamide 2%-Timolol 0.5%] 1 drop BOTH EYES BID 04/02/22 [History] Latanoprost [Latanoprost 0.005%] 1 drop BOTH EYES HS 04/02/22 [History] metFORMIN HCL [Glucophage] 1,000 mg PO BID 07/05/23 [History] cefUROXime axetiL [Cefuroxime] 500 mg PO BID 4 Days #8 tab 07/08/23 [Rx] guaiFENesin [Mucinex] 600 mg PO Q12HR 5 Days #10 tab 07/08/23 [Rx] Follow up Appointment(s)/Referral(s): Harpal Vickers MD [Primary Care Provider] - 1-2 days Esteban Caldwell DO [STAFF PHYSICIAN] - 1 Week Discharge Disposition: HOME SELF-CARE
--- NOTE | 2023-07-08 12:25 | P.PN ---
Subjective Progress Note Date: 07/08/23 Principal diagnosis: Abdominal aortic aneurysm, iliac aneurysm Patient seen and examined today as a follow-up. He states he is doing very well. Denies any abdominal pain, no back pain no lower extremity pain. No changes throughout the night. Plan is for discharge home today. Objective - Vital Signs Vital signs: Vital Signs Temp 97.3 F L 07/08/23 02:05 Pulse 61 07/08/23 02:05 Resp 16 07/08/23 02:05 BP 151/76 07/08/23 02:05 Pulse Ox 97 07/08/23 02:05 FiO2 Intake & Output 07/07/23 07/08/23 07/08/23 18:59 06:59 18:59 Intake Total 240 Balance 240 Intake: Oral 240 Other: Voiding Method Toilet Toilet # Voids 1 1 # Bowel Movements 1 1 - Exam General appearance: The patient is alert, oriented, appears in no acute distress. HET: Head is normocephalic and atraumatic. Pupils are equal and reactive. Neck: Supple. Heart: Regular. Lungs: Equal expansion, normal respiratory effort. Abdomen: Soft, nontender, nondistended. Extremities: Normal skin color and turgor. Neurological: No focal deficits. Strength and sensation are grossly intact. - Labs CBC & Chem 7: 07/08/23 06:10 07/08/23 06:10 Labs: Abnormal Lab Results - Last 24 Hours (Table) 07/07/23 07/07/23 07/07/23 Range/Units 06:00 06:00 06:00 RBC 3.55 L (4.40-5.60) X 10*6/uL Hgb 11.0 L (13.0-17.0) g/dL Hct 33.3 L (39.6-50.0) % MPV 9.0 L (9.5-12.2) FL Carbon Dioxide 19.6 L (21.6-31.8) mmol/L Anion Gap 13.40 H (4.00-12.00) mmol/L BUN/Creatinine Ratio 32.62 H (12.00-20.00) Ratio Glucose 112 H (70-110) mg/dL POC Glucose (mg/dL) (70-110) mg/dL Hemoglobin A1c 6.6 H (<=6.0) % ALT 9 L (10-49) U/L Total Protein 6.0 L (6.2-8.2) g/dL Albumin 3.5 L (3.8-4.9) g/dL Albumin/Globulin Ratio 1.40 L (1.60-3.17) Ratio 07/07/23 07/07/23 07/07/23 Range/Units 12:18 16:56 20:29 RBC (4.40-5.60) X 10*6/uL Hgb (13.0-17.0) g/dL Hct (39.6-50.0) % MPV (9.5-12.2) FL Carbon Dioxide (21.6-31.8) mmol/L Anion Gap (4.00-12.00) mmol/L BUN/Creatinine Ratio (12.00-20.00) Ratio Glucose (70-110) mg/dL POC Glucose (mg/dL) 194 H 199 H 184 H (70-110) mg/dL Hemoglobin A1c (<=6.0) % ALT (10-49) U/L Total Protein (6.2-8.2) g/dL Albumin (3.8-4.9) g/dL Albumin/Globulin Ratio (1.60-3.17) Ratio 07/08/23 Range/Units 05:55 RBC (4.40-5.60) X 10*6/uL Hgb (13.0-17.0) g/dL Hct (39.6-50.0) % MPV (9.5-12.2) FL Carbon Dioxide (21.6-31.8) mmol/L Anion Gap (4.00-12.00) mmol/L BUN/Creatinine Ratio (12.00-20.00) Ratio Glucose (70-110) mg/dL POC Glucose (mg/dL) 118 H (70-110) mg/dL Hemoglobin A1c (<=6.0) % ALT (10-49) U/L Total Protein (6.2-8.2) g/dL Albumin (3.8-4.9) g/dL Albumin/Globulin Ratio (1.60-3.17) Ratio Microbiology - Last 24 Hours (Table) 07/05/23 21:45 Blood Culture - Preliminary Blood 07/05/23 22:00 Blood Culture - Preliminary Blood Assessment and Plan Assessment: Aortobiiliac aneurysmal disease Uncontrolled diabetes Plan: CTA reviewed- AAA distal aorta at the bifurcation measuring 4.6cm and left common iliac artery measuring 5.6cm abutign the internal iliac artery bifurcati on. Will require EVAR with MERRILL graft which can be done as outpatient. Follow up in 1-2 weeks in office for discussion and timing of procedure. Thank you for this consultation, patient is cleared for discharge. We will sign off at this time. The impression and plan of care has been dictated as directed. I performed a history and examination of this patient, discussed the same with the dictator. I agree with the dictator's note ,documented as a scribe. Any additional findings or plans will be noted.
== END 2023-07-08 12:18 | disposition home or self-care (01) | DRG 194 ==
LOC: EC 19:32 → 6NMEDSUR 21:59
PROVIDERS: ADMIT Internal Medicine; ATTEND Internal Medicine
DX: J15.9 Unspecified bacterial pneumonia (principal); J44.0 Chronic obstructive pulmonary disease with (acute) lower respiratory infection; K57.92 Diverticulitis of intestine, part unspecified, without perforation or abscess without bleeding; K80.10 Calculus of gallbladder with chronic cholecystitis without obstruction; G31.89 Other specified degenerative diseases of nervous system; E86.0 Dehydration; Z11.52 Encounter for screening for COVID-19; E83.42 Hypomagnesemia; H40.9 Unspecified glaucoma; I45.10 Unspecified right bundle-branch block; I71.40 Abdominal aortic aneurysm, without rupture, unspecified; I72.3 Aneurysm of iliac artery; I10 Essential (primary) hypertension; Z79.84 Long term (current) use of oral hypoglycemic drugs; Z79.4 Long term (current) use of insulin
CPT/HCPCS: 36415; 70450; 71046; 74174; 74176; 80053; 81003; 82140; 83036; 83605; 83735; 84100; 84443; 84484; 85025; 85027; 85610; 85730; 87040; 87636; 93005; 96361; 96365; 96368; 99285

== ENCOUNTER 2023-08-08 18:27 | Inpatient (IN) | payer MEDICARE ==
--- NOTE | 2023-08-08 18:47 | ED ---
Abdominal Pain HPI <Tejas Vazquez - Last Filed: 08/09/23 00:42> - General Source: patient, family, RN notes reviewed, old records reviewed Mode of arrival: ambulatory Limitations: no limitations - History of Present Illness MD Complaint: abdominal pain -: days(s) Location: epigastric, suprapubic Radiation: epigastric, suprapubic Migration to: epigastric, suprapubic Severity: severe Severity scale (1-10): 9 Quality: stabbing, aching Consistency: constant Improves With: nothing, bowel movement Associated Symptoms: nausea, vomiting Treatments Prior to Arrival: other (0) <Aryan Jhaveri - Last Filed: 08/17/23 22:46> - General Chief Complaint: Abdominal Pain Stated Complaint: abd pain Time Seen by Provider: 08/08/23 18:44 - History of Present Illness Initial Comments: This is a 83-year-old male to the ER for evaluation today. Patient presents today for evaluation regards to severe abdominal pain with nausea vomiting epigastric abdominal pain. No travel history no sick contacts no other complaints. Persistent weakness. Patient has recent evaluation which resulted in a AAA diagnosis and is concerned for AAA problem. (Aryan Jhaveri) - Related Data Home Medications Medication Instructions Recorded Confirmed Dorzolamide/Timolol/Pf 1 drop BOTH EYES BID 04/02/22 08/08/23 [Dorzolamide 2%-Timolol 0.5%] Latanoprost [Latanoprost 0.005%] 1 drop BOTH EYES HS 04/02/22 08/08/23 metFORMIN HCL [Glucophage] 1,000 mg PO BID-W/MEALS 07/05/23 08/08/23 Multivitamins, Thera [Multivitamin 1 tab PO DAILY 08/08/23 08/08/23 (formulary)] Allergies Allergy/AdvReac Type Severity Reaction Status Date / Time No Known Allergies Allergy Verified 07/05/23 20:35 Review of Systems ROS Other: All systems not noted in ROS Statement are negative. <Tejas Vazquez - Last Filed: 08/09/23 00:42> ROS Other: All systems not noted in ROS Statement are negative. <Aryan Jhaveri - Last Filed: 08/17/23 22:46> ROS Statement: Those systems with pertinent positive or pertinent negative responses have been documented in the HPI. Past Medical History Past Medical History: Diabetes Mellitus Additional Past Medical History / Comment(s): glaucoma aortic aneursym History of Any Multi-Drug Resistant Organisms: None Reported Past Surgical History: Back Surgery Past Anesthesia/Blood Transfusion Reactions: No Reported Reaction Past Psychological History: No Psychological Hx Reported Smoking Status: Former smoker Past Alcohol Use History: None Reported Past Drug Use History: None Reported <Aryan Jhaveri - Last Filed: 08/17/23 22:46> General Exam Limitations: no limitations General appearance: alert, in no apparent distress Head exam: Present: atraumatic, normocephalic, normal inspection Eye exam: Present: normal appearance, PERRL, EOMI. Absent: scleral icterus, conjunctival injection, periorbital swelling ENT exam: Present: normal exam, mucous membranes moist Neck exam: Present: normal inspection. Absent: tenderness, meningismus, lymphadenopathy Respiratory exam: Present: normal lung sounds bilaterally. Absent: respiratory distress, wheezes, rales, rhonchi, stridor Cardiovascular Exam: Present: regular rate, normal rhythm, normal heart sounds. Absent: systolic murmur, diastolic murmur, rubs, gallop, clicks GI/Abdominal exam: Present: soft, normal bowel sounds. Absent: distended, tenderness, guarding, rebound, rigid Extremities exam: Present: normal inspection, full ROM, normal capillary refill. Absent: tenderness, pedal edema, joint swelling, calf tenderness Back exam: Present: normal inspection Neurological exam: Present: alert, oriented X3, CN II-XII intact Psychiatric exam: Present: normal affect, normal mood Skin exam: Present: warm, dry, intact, normal color. Absent: rash <Aryan Jhaveri - Last Filed: 08/17/23 22:46> Course <Aryan Jhaveri - Last Filed: 08/17/23 22:46> Vital Signs 08/08/23 08/08/23 08/08/23 18:39 20:00 21:30 Temperature 97.4 F L Pulse Rate 63 82 85 Pulse Rate [ Production Machine Operator ] Respiratory 20 18 18 Rate Blood Pressure 147/81 158/77 141/89 Blood Pressure [Left Arm] O2 Sat by Pulse 98 98 97 Oximetry 02/08/09/23 08/09/23 22:30 03:08 06:08 Temperature 98.4 F Pulse Rate 88 91 86 Pulse Rate [ Production Machine Operator ] Respiratory 18 18 14 Rate Blood Pressure 135/88 161/78 170/93 Blood Pressure [Left Arm] O2 Sat by Pulse 98 97 96 Oximetry 08/09/23 08/09/23 08/09/23 09:00 11:00 13:30 Temperature 98.1 F Pulse Rate 58 L 54 L Pulse Rate [ 69 Production Machine Operator ] Respiratory 18 18 18 Rate Blood Pressure 173/58 168/76 Blood Pressure 146/92 [Left Arm] O2 Sat by Pulse 96 96 96 Oximetry 08/09/23 08/09/23 17:15 21:51 Temperature 98.1 F 98.6 F Pulse Rate 60 Pulse Rate [ 100 Production Machine Operator ] Respiratory 18 18 Rate Blood Pressure 158/112 Blood Pressure 147/96 [Left Arm] O2 Sat by Pulse 99 95 Oximetry - Reevaluation(s) Reevaluation #1: 08/08/23 20:22 Records are reviewed (Aryan Jhaveri) Reevaluation #2: 08/08/23 20:22 Patient symptoms are improved here in the ER (Aryan Jhaveri) Reevaluation #3: 08/08/23 20:22 Patient informed of results and questions answered (Aryan Jhaveri) Reevaluation #4: Was pt. sent in by a medical professional or institution (, PA, PARCEL POST OFFICER, urgent care, hospital, or detention...) When possible be specific @ -no Did you speak to anyone other than the patient for history (EMS, parent, family, police, friend...)? What history was obtained from this source @ -no Did you review nursing and triage notes (agree or disagree)? Why? @ -agree Are old charts reviewed (outside hosp., previous admission, EMS record, old EKG, old radiological studies, urgent care reports/EKG's, detention records)? Report findings @ -yes Differential Diagnosis (chest pain, altered mental status, abdominal pain women, abdominal pain men, vaginal bleeding, weakness, fever, dyspnea, syncope, headache, dizziness, GI bleed, back pain, seizure, CVA, palpatations, mental health, musculoskeletal)? @ -prior EKG interpreted by me (3pts min.). @ -yes X-rays interpreted by me (1pt min.). @ -yes negative for acute disease CT interpreted by me (1pt min.). @ -n yes negative for acute disease U/S interpreted by me (1pt. min.). @ -no What testing was considered but not performed or refused? (CT, X-rays, U/S, labs)? Why? @ -none What meds were considered but not given or refused? Why? @ -none Did you discuss the management of the patient with other professionals (professionals i.e. DrJett, PA, PARCEL POST OFFICER, lab, RT, psych nurse, social work instructor, zig zag stitcher, teacher, audit officer, rn case manager hospice)? Give summary @ -no Was smoking cessation discussed for >3mins.? @ -no Was critical care preformed (if so, how long)? @ -no Were there social determinants of health that impacted care today? How? (Homelessness, low income, unemployed, alcoholism, drug addiction, transportation, low edu. Level, literacy, decrease access to med. care, assisted, rehab)? @ -none Was there de-escalation of care discussed even if they declined (Discuss DNR or withdrawal of care, Hospice)? DNR status @ -no What co-morbidities impacted this encounter? (DM, HTN, Smoking, COPD, CAD, Cancer, CVA, ARF, Chemo, Hep., AIDS, mental health diagnosis, sleep apnea, morbid obesity)? @ -none Was patient admitted / discharged? Hospital course, mention meds given and route, prescriptions, significant lab abnormalities, going to OR and other pertinent info. @ -83 male to ER for evaluation, patient is found to have arrhythmia here in the ER, multiple complaints and will be admitted for further evaluation and management Admitted Undiagnosed new problem with uncertain prognosis? @ -no Drug Therapy requiring intensive monitoring for toxicity (Heparin, Nitro, Insulin, Cardizem)? @ -no Were any procedures done? @ -no Diagnosis/symptom? @ -Arrhythmia Acute, or Chronic, or Acute on Chronic? @ -Acute Uncomplicated (without systemic symptoms) or Complicated (systemic symptoms)? @ -Complicated Side effects of treatment? @ -no Exacerbation, Progression, or Severe Exacerbation? @ -exacerbation Poses a threat to life or bodily function? How? (Chest pain, [place], GA, pneumonia, PE, COPD, DKA, ARF, appy, cholecystitis, CVA, Diverticulitis, Homicidal, Suicidal, threat to staff... and all critical care pts) @ -yes with significant extremes of age (Aryan Jhaveri) Reevaluation #5: Differential Abdominal Pain Men: Appendicitis, cholecystitis, diverticulosis, ischemic bowel, pancreatitis, hepatitis, UTI, gastroenteritis, AAA, incarcerated hernia, bowel obstruction, c onstipation, inflammatory bowel, hepatitis, peptic ulcer disease, splenic infarction, perforated viscus, testicular torsion, this is not meant to be an all-inclusive list (Aryan Jhaveri) - Consultations Consultation #1: Spoke with admitting physicians who agreed to admit this patient (Aryan Jhaveri) Medical Decision Making - Lab Data Result diagrams: 08/08/23 18:57 08/08/23 18:57 <Tejas Vazquez - Last Filed: 08/09/23 00:42> - Lab Data Result diagrams: 08/14/23 06:11 08/15/23 19:48 - EKG Data -: EKG Interpreted by Me (He is sinus bradycardia 57 MI 156 QRS 108 QTc 450) - Radiology Data Radiology results: pending, report reviewed (CTA chest is pending CT abdomen), image reviewed <Aryan Jhaveri - Last Filed: 08/17/23 22:46> - Medical Decision Making Patient care signed out to there is concern of decreased contrast extending past the distal iliac vessels patient me following pending CT of the abdomen and pelvis. CT of the pelvis was obtained showing large iliac artery aneurysm. No other acute processes noted. Patient reevaluated bedside at 12:40 AM found to be stable to condition. He does have a good DP pulse at his right lower extremity. Patient denies any left lower extremity symptoms that are acute. His legs do feel symmetrical in temperature. telemetry monitor was reviewed patient having these frequent episodes of either high degree heart block or sinus pause. Patient denies any respiratory or cardiac symptoms. He will be admitted with consultation to cardiology. Given this large vascular iliac aneurysm vascular surgery consulted as well. (Tejas Vazquez) 83 male to ER for evaluation in regards to possibility of aneurysm, patient has dysrhythmia, will admit for consultation in regards to arrhythmia (Aryan Jhaveri) - Lab Data Lab Results 08/08/23 08/08/23 08/08/23 Range/Units 18:57 18:57 18:57 WBC 12.1 H (3.8-10.6) k/uL RBC 4.30 (4.30-5.90) m/uL Hgb 13.8 (13.0-17.5) gm/dL Hct 40.0 (39.0-53.0) % MCV 93.0 (80.0-100.0) fL MCH 32.0 (25.0-35.0) pg MCHC 34.4 (31.0-37.0) g/dL RDW 13.5 (11.5-15.5) % Plt Count 161 (150-450) k/uL MPV 7.1 Neutrophils % 82 % Lymphocytes % 12 % Monocytes % 5 % Eosinophils % 1 % Basophils % 0 % Neutrophils # 9.9 H (1.3-7.7) k/uL Lymphocytes # 1.4 (1.0-4.8) k/uL Monocytes # 0.6 (0-1.0) k/uL Eosinophils # 0.1 (0-0.7) k/uL Basophils # 0.0 (0-0.2) k/uL Sodium 132 L (137-145) mmol/L Potassium 5.0 (3.5-5.1) mmol/L Chloride 101 (98-107) mmol/L Carbon Dioxide 23 (22-30) mmol/L Anion Gap 8 mmol/L BUN 24 H (9-20) mg/dL Creatinine 0.67 (0.66-1.25) mg/dL Est GFR (CKD-EPI)AfAm >90 (>60 ml/min/1.73 sqM) Est GFR (CKD-EPI)NonAf 88 (>60 ml/min/1.73 sqM) Glucose 195 H (74-99) mg/dL Plasma Lactic Acid Julio Cesar 1.9 (0.7-2.0) mmol/L Calcium 9.4 (8.4-10.2) mg/dL Total Bilirubin 1.3 (0.2-1.3) mg/dL AST 37 (17-59) U/L ALT 21 (4-49) U/L Alkaline Phosphatase 74 (38-126) U/L Total Protein 7.7 (6.3-8.2) g/dL Albumin 4.5 (3.5-5.0) g/dL Amylase 132 H (30-110) U/L Lipase 68 (23-300) U/L Urine Color Urine Appearance (Clear) Urine pH (5.0-8.0) Ur Specific [place] (1.001-1.035) Urine Protein (Negative) Urine Glucose (UA) (Negative) Urine Ketones (Negative) Urine Blood (Negative) Urine Nitrite (Negative) Urine Bilirubin (Negative) Urine Urobilinogen (<2.0) mg/dL Ur Leukocyte Esterase (Negative) 08/08/23 Range/Units 23:42 WBC (3.8-10.6) k/uL RBC (4.30-5.90) m/uL Hgb (13.0-17.5) gm/dL Hct (39.0-53.0) % MCV (80.0-100.0) fL MCH (25.0-35.0) pg MCHC (31.0-37.0) g/dL RDW (11.5-15.5) % Plt Count (150-450) k/uL MPV Neutrophils % % Lymphocytes % % Monocytes % % Eosinophils % % Basophils % % Neutrophils # (1.3-7.7) k/uL Lymphocytes # (1.0-4.8) k/uL Monocytes # (0-1.0) k/uL Eosinophils # (0-0.7) k/uL Basophils # (0-0.2) k/uL Sodium (137-145) mmol/L Potassium (3.5-5.1) mmol/L Chloride (98-107) mmol/L Carbon Dioxide (22-30) mmol/L Anion Gap mmol/L BUN (9-20) mg/dL Creatinine (0.66-1.25) mg/dL Est GFR (CKD-EPI)AfAm (>60 ml/min/1.73 sqM) Est GFR (CKD-EPI)NonAf (>60 ml/min/1.73 sqM) Glucose (74-99) mg/dL Plasma Lactic Acid Julio Cesar (0.7-2.0) mmol/L Calcium (8.4-10.2) mg/dL Total Bilirubin (0.2-1.3) mg/dL AST (17-59) U/L ALT (4-49) U/L Alkaline Phosphatase (38-126) U/L Total Protein (6.3-8.2) g/dL Albumin (3.5-5.0) g/dL Amylase (30-110) U/L Lipase (23-300) U/L Urine Color Colorless Urine Appearance Clear (Clear) Urine pH 5.5 (5.0-8.0) Ur Specific [place] 1.040 H (1.001-1.035) Urine Protein Trace H (Negative) Urine Glucose (UA) 1+ H (Negative) Urine Ketones 1+ H (Negative) Urine Blood Negative (Negative) Urine Nitrite Negative (Negative) Urine Bilirubin Negative (Negative) Urine Urobilinogen <2.0 (<2.0) mg/dL Ur Leukocyte Esterase Negative (Negative) Disposition Decision Time: 00:43 <Tejas Vazquez - Last Filed: 08/09/23 00:42> Is patient prescribed a controlled substance at d/c from ED?: No <Aryan Jhaveri - Last Filed: 08/17/23 22:46> Clinical Impression: Dysrhythmia, Weakness, Dehydration, Chest pain Disposition: ADMITTED IP TO THIS HOSP Condition: Fair
[2023-08-08] MEDS: ONDANSETRON 4 MG/2 ML VIAL IVP STA (19:03)
[2023-08-08] MEDS: MORPHINE SULFATE 4 MG/ML SYRINGE IVP STA (19:04)
[2023-08-08] MEDS: SODIUM CHLORIDE 0.9% 1,000 ML IV STA (19:10)
[2023-08-08 19:18] LABS: Basophils % (A) 0 %; Eosinophils # (A) 0.1 k/uL (0-0.7); Eosinophils % (A) 1 %; HGB 13.8 gm/dL (13.0-17.5); Lymphocytes # (A) 1.4 k/uL (1.0-4.8); Lymphocytes % (A) 12 %; MCHC 34.4 g/dL (31.0-37.0); Mean Platelet Volume 7.1; Monocytes # (A) 0.6 k/uL (0-1.0); Monocytes % (A) 5 %; Neutrophils # (A) 9.9 k/uL (1.3-7.7); Neutrophils % (A) 82 %; Platelet Count 161 k/uL (150-450); RDW 13.5 % (11.5-15.5); WBC 12.1 k/uL (3.8-10.6)
[2023-08-08 20:11] LABS: ALT 21 U/L (4-49); AST 37 U/L (17-59); African American GFR (CKD) >90 (>60 ml/min/1.73 sqM); Albumin 4.5 g/dL (3.5-5.0); Alkaline Phosphatase 74 U/L (38-126); Amylase 132 U/L (30-110); Anion Gap 8 mmol/L; Blood Urea Nitrogen 24 mg/dL (9-20); Calcium 9.4 mg/dL (8.4-10.2); Carbon Dioxide 23 mmol/L (22-30); Chloride 101 mmol/L (98-107); Glucose 195 mg/dL (74-99); Lipase 68 U/L (23-300); Non-African American GFR(CKD) 88 (>60 ml/min/1.73 sqM); Sodium 132 mmol/L (137-145); Total Bilirubin 1.3 mg/dL (0.2-1.3); Total Protein 7.7 g/dL (6.3-8.2)
[2023-08-08] MEDS: HYDROmorphone 1 MG/ML 1 ML SYRINGE IVP STA (21:35)
--- NOTE | 2023-08-08 22:02 | CT ---
EXAMINATION TYPE: CT angio abdomen pelvis DATE OF EXAM: 08/08/2023 COMPARISON: 07/06/2023 INDICATION: AAA DLP: 971.9 mGycm, Automated exposure control for dose reduction was used. CONTRAST: 100ml mL of Isovue 300. Study performed without Oral Contrast TECHNIQUE: Axial images were obtained from above the diaphragm to the pubic rami in the axial plane a t 5 mm thick sections. Reconstructed images are reviewed on the computer in the coronal plane. FINDINGS: Limited CT sections are obtained the lung bases. Mild bibasilar infiltrates are present.. Coronary artery calcification is present. Vascular calcifications within the descending thoracic aorta. CT ABDOMEN: Aorta: There is an infrarenal abdominal aortic fusiform prominence with an AP dimension of 3.3 cm. Th ere is a fusiform prominence at the aortic bifurcation with an AP dimension of 3.4 cm in transverse d imension of 4.6 cm. This extends into the iliac vessels. The left common iliac artery is markedly di lated measuring 5.5 cm. The left common iliac artery is prominent measuring 2.5 cm. There is slight p rominence of the right internal and external iliac vessels. There is slight prominence of the left in ternal iliac vessel. Distal external iliac vessels and common femoral arteries have a normal caliber. Following contrast administration there is slow flow into the iliac vessels from the aorta. This coul d be related to flow rates. This could also be related to more distal obstruction such as at the leve l of the external iliac vessels which do not contain contrast this examination. COMPARISON: Exam is stable from 07/06/2023 comparison. Liver: Normal Spleen: Normal Pancreas: Normal Adrenal glands: The adrenal glands are normal. Gallbladder: Large gallstone was administered for the gallbladder. Kidneys: No masses are evident. No hydronephrosis is present. There is a 5.8 cm cyst on the right k idney No renal stones are evident. Aorta: Vascular calcification is within the aorta. Please also see above Inferior vena cava: Normal. CT PELVIS: There are dilated fluid-filled small bowel loops. This extends into the distal abdomen. Distal ileum has a more normal caliber. The colon appears unremarkable. Zone of transition is not identified. Yonny elate for ileus. Partial small bowel obstruction should be considered. Follow-up is recommended. Ther e are loops of bowel which are incompletely distended or lack oral contrast limiting their evaluation . Appendix: Not identified Urinary bladder: Normal. Genitourinary structures: Prostate is slightly prominent Osseous structures: No suspicious lytic or sclerotic lesions. IMPRESSION: 1. Persistent stable appearing aneurysms of the aorta and iliac vessels. 2. There is an early contrast phase for the arterial evaluation. However, contrast does not extend in to the distal iliac vessels. Uncertain whether this is related to slow flow or obstruction. Clinical correlation with palpable femoral pulses or ultrasound to document flow may be useful. 3. CT abdomen and pelvis findings otherwise stable
[2023-08-09 00:10] LABS: Appearance,Urine Clear (Clear); Bilirubin,Urine Negative (Negative); Blood,Urine Negative (Negative); Color,Urine Colorless; Glucose,Urine (UA) 1+ (Negative); Ketones,Urine 1+ (Negative); Leukocyte Esterase,Urine Negative (Negative); Nitrite,Urine Negative (Negative); PH, Urine 5.5 (5.0-8.0); Protein,Urine Trace (Negative); Urobilinogen,Urine <2.0 mg/dL (<2.0)
[2023-08-09] MEDS ORDERED: NALOXONE 0.4 MG/ML 1 ML VIAL IV PRN (00:35)
--- NOTE | 2023-08-09 10:39 | P.GSCN ---
History of Present Illness Consult date: 08/09/23 Reason for Consult: AAA, iliac artery aneurysms Requesting physician: Tejas Vazquez History of present illness: Patient is an 82-year-old male with past medical history including diabetes, glaucoma, abdominal aortic aneurysm and bilateral iliac artery aneurysms who presented to the hospital with abdominal pain. Patient states he had some abdominal discomfort in the mid to lower abdomen yesterday and followed by some vomiting yesterday evening. This morning he states he has no abdominal pain, no nausea or vomiting. He was also noted to have an arrhythmia this admission. Patient has known abdominal aortic aneurysm with bilateral iliac artery aneurysms and was seen by vascular surgery during his last admission in June 2023. At that time it was recommended that he undergo endovascular aortic repair abdominal and iliac aneurysms. At that time patient declined any surgical procedures. He was followed up in the office where he was still recommended to have endovascular repair, however patient again declined wanting to move forward with any surgical repair. Again patient currently denies any shortness of breath, chest pain, abdominal pain, nausea or vomiting. During this admission he had a repeat CT angiogram of the abdomen and pelvis that reported persistent stable appearing aneurysms of the aorta and iliac vessels, early contrast phase for the arterial evaluation. However contrast does not extend into the distal iliac vessels. Uncertain whether this is related to slow flow or obstruction CT abdomen pelvis findings otherwise stable. Review of Systems A 14 point review systems was completed all pertinent positives and negatives as stated in the HPI. Past Medical History Past Medical History: Diabetes Mellitus Additional Past Medical History / Comment(s): glaucoma aortic aneursym History of Any Multi-Drug Resistant Organisms: None Reported Past Surgical History: Back Surgery Past Anesthesia/Blood Transfusion Reactions: No Reported Reaction Past Psychological History: No Psychological Hx Reported Smoking Status: Former smoker Past Alcohol Use History: None Reported Past Drug Use History: None Reported Medications and Allergies Home Medications Medication Instructions Recorded Confirmed Type Dorzolamide/Timolol/Pf 1 drop BOTH EYES BID 04/02/22 08/08/23 History [Dorzolamide 2%-Timolol 0.5%] Latanoprost [Latanoprost 0.005%] 1 drop BOTH EYES HS 04/02/22 08/08/23 History metFORMIN HCL [Glucophage] 1,000 mg PO BID-W/MEALS 07/05/23 08/08/23 History Multivitamins, Thera [Multivitamin 1 tab PO DAILY 08/08/23 08/08/23 History (formulary)] Allergies Allergy/AdvReac Type Severity Reaction Status Date / Time No Known Allergies Allergy Verified 07/05/23 20:35 Surgical - Exam Vital Signs Temp Pulse Resp BP Pulse Ox 97.4 F L 63 20 147/81 98 08/08/23 18:39 08/08/23 18:39 08/08/23 18:39 08/08/23 18:39 08/08/23 18:39 General appearance: The patient is alert, oriented, appears in no acute distress. HET: Head is normocephalic and atraumatic. Pupils are equal and reactive. Hard of hearing. Neck: Supple. Heart: Regular. Lungs: Equal expansion, normal respiratory effort. Abdomen: Soft, nontender, nondistended. Extremities: Normal skin color and turgor. Palpable femoral pulses, palpable bilateral DP pulses. Neurological: No focal deficits. Results - Labs 08/08/23 18:57 08/08/23 18:57 Abnormal Lab Results - Last 24 Hours (Table) 08/08/23 08/08/23 08/08/23 Range/Units 18:57 18:57 23:42 WBC 12.1 H (3.8-10.6) k/uL Neutrophils # 9.9 H (1.3-7.7) k/uL Sodium 132 L (137-145) mmol/L BUN 24 H (9-20) mg/dL Glucose 195 H (74-99) mg/dL Amylase 132 H (30-110) U/L Ur Specific [place] 1.040 H (1.001-1.035) Urine Protein Trace H (Negative) Urine Glucose (UA) 1+ H (Negative) Urine Ketones 1+ H (Negative) Diabetes panel 08/08/23 Range/Units 18:57 Sodium 132 L (137-145) mmol/L Potassium 5.0 (3.5-5.1) mmol/L Chloride 101 (98-107) mmol/L Carbon Dioxide 23 (22-30) mmol/L BUN 24 H (9-20) mg/dL Creatinine 0.67 (0.66-1.25) mg/dL Glucose 195 H (74-99) mg/dL Calcium 9.4 (8.4-10.2) mg/dL AST 37 (17-59) U/L ALT 21 (4-49) U/L Alkaline Phosphatase 74 (38-126) U/L Total Protein 7.7 (6.3-8.2) g/dL Albumin 4.5 (3.5-5.0) g/dL Calcium panel 08/08/23 Range/Units 18:57 Calcium 9.4 (8.4-10.2) mg/dL Albumin 4.5 (3.5-5.0) g/dL Pituitary panel 08/08/23 Range/Units 18:57 Sodium 132 L (137-145) mmol/L Potassium 5.0 (3.5-5.1) mmol/L Chloride 101 (98-107) mmol/L Carbon Dioxide 23 (22-30) mmol/L BUN 24 H (9-20) mg/dL Creatinine 0.67 (0.66-1.25) mg/dL Glucose 195 H (74-99) mg/dL Calcium 9.4 (8.4-10.2) mg/dL Adrenal panel 08/08/23 Range/Units 18:57 Sodium 132 L (137-145) mmol/L Potassium 5.0 (3.5-5.1) mmol/L Chloride 101 (98-107) mmol/L Carbon Dioxide 23 (22-30) mmol/L BUN 24 H (9-20) mg/dL Creatinine 0.67 (0.66-1.25) mg/dL Glucose 195 H (74-99) mg/dL Calcium 9.4 (8.4-10.2) mg/dL Total Bilirubin 1.3 (0.2-1.3) mg/dL AST 37 (17-59) U/L ALT 21 (4-49) U/L Alkaline Phosphatase 74 (38-126) U/L Total Protein 7.7 (6.3-8.2) g/dL Albumin 4.5 (3.5-5.0) g/dL Assessment and Plan Assessment: 1. Aortobiiliac aneurysmal disease 2. Abdominal pain resolved 3. Diabetes mellitus Plan: Reviewed with patient CT angiogram findings that are stable from last admission. Discussion is still that patient is recommended for endovascular repair for aortoiliac aneurysms however patient is declining any surgical intervention. Discussed with patient there is risk for rupture and , he verbalizes understanding. Continue with further recommendations from medical management. Thank you for this consultation, we will sign off at this time. The impression and plan of care has been dictated as directed. Dr. Subramanian I performed a history and examination of this patient, discussed the same with the dictator. I agree with the dictator's note ,documented as a scribe. Any additional findings or plans will be noted. Long discussion had with patient. At the initial point again he is declining surgery. He did understand the risks involved and verbalized that he is not willing to undergo any further interventions. Later in the day, and daughter present at the bedside stating the patient is confused at times and not typically able to make his full decision himself and that since she is the POA discussion is to be had with her. Again we had a discussion regarding the indications and potential interventions however this time it does not appear to be the cause of any of his abdominal pains. Would recommend follow-up with Dr. Caldwell to discuss further plans if the patient is actively changing his mind. If there is concern for memory issues or competence, would consider psych eval as patient currently is alert and oriented although hard of hearing
--- NOTE | 2023-08-09 11:36 | P.CRDCN ---
History of Present Illness Consult date: 08/09/23 Reason for Consult (text): Sinus pauses versus heart block History of present illness: History of present illness: This is an 82-year-old male with past medical history of diabetes mellitus type 2, glaucoma, abdominal aortic aneurysm and bilateral iliac artery aneurysms. We have been asked to evaluate the patient for sinus pauses versus heart block. Patient states he presented to emergency center for abdominal pain that was on Saturday for about 6 hours. He denies any chest pain. He states he had 1 episode of vomiting this morning and he does have chronic diarrhea but seems to have resolved. He denies any fever or chills. He denies any previous cardiac history. EKG sinus arrhythmia, other EKGs have significant artifact Chest x-ray: WBC 12.1, hemoglobin 13.8, platelet count 161. Sodium 132, potassium 5, BUN 24 creatinine 0.67. Blood sugar 195. Liver function tests are normal. Troponin negative x 2. Amylase 132 and lipase 68. Urinalysis 1+ glucose, 1+ ketones. Trace protein. CTA of the abdomen pelvis: Persistent stable aneurysms of the aorta and iliac vessels. Home cardiac medications: None Review Of Systems: At the time of my exam: CONSTITUTIONAL: Denies fever or chills. HEENT: Denies blurred vision, vision changes, or eye pain. Denies hemoptysis CARDIOVASCULAR: Denies chest pain. Denies orthopnea. Denies PND. Denies palpitations RESPIRATORY: Denies shortness of breath. GASTROINTESTINAL: Denies abdominal pain. Denies nausea or vomiting. HEMATOLOGIC: Denies bleeding disorders. GENITOURINARY: Denies any blood in urine. SKIN: Denies pruitis. Denies rash. Physical examination: Gen: This is a frail-appearing 83-year-old VS: reviewed blood pressure 149/69, heart rate 61. HEENT: Head is atraumatic, normocephalic. Pupils equal, round. Sclerae is anicteric. NECK: Supple. No JVD. LUNGS: Clear to auscultation. No wheezes or rhonchi. No intercostal retractions. HEART: Irregular rate and rhythm. No murmur. ABDOMEN: Soft No tenderness. EXTREMITIES: No pedal edema. No calf tenderness. NEUROLOGICAL: Patient is awake, alert. Assessment: Sinus arrhythmia Rule out heart block Diabetes mellitus type 2 Abdominal aortic aneurysm and bilateral iliac artery aneurysms Plan: Repeat troponin Repeat EKG Obtain 2-D echocardiogram and Doppler study to assess cardiac structure and function Further recommendations to follow based upon clinical course Thank you kindly for this consultation. Nurse practitioner note has been reviewed, I agree with documented findings and plan of care. Patient was seen and examined. Past Medical History Past Medical History: Diabetes Mellitus Additional Past Medical History / Comment(s): glaucoma aortic aneursym History of Any Multi-Drug Resistant Organisms: None Reported Past Surgical History: Back Surgery Past Anesthesia/Blood Transfusion Reactions: No Reported Reaction Past Psychological History: No Psychological Hx Reported Smoking Status: Former smoker Past Alcohol Use History: None Reported Past Drug Use History: None Reported Medications and Allergies Home Medications Medication Instructions Recorded Confirmed Type Dorzolamide/Timolol/Pf 1 drop BOTH EYES BID 04/02/22 08/08/23 History [Dorzolamide 2%-Timolol 0.5%] Latanoprost [Latanoprost 0.005%] 1 drop BOTH EYES HS 04/02/22 08/08/23 History metFORMIN HCL [Glucophage] 1,000 mg PO BID-W/MEALS 07/05/23 08/08/23 History Multivitamins, Thera [Multivitamin 1 tab PO DAILY 08/08/23 08/08/23 History (formulary)] Allergies Allergy/AdvReac Type Severity Reaction Status Date / Time No Known Allergies Allergy Verified 07/05/23 20:35 Physical Exam Vitals: Vital Signs Temp Pulse Resp BP Pulse Ox 08/09/23 06:08 98.4 F 86 14 170/93 96 08/09/23 03:08 91 18 161/78 97 08/08/23 22:30 88 18 135/88 98 08/08/23 21:30 85 18 141/89 97 08/08/23 20:00 82 18 158/77 98 08/08/23 18:39 97.4 F L 63 20 147/81 98 Intake and Output 08/08/23 08/09/23 08/09/23 22:59 06:59 14:59 Other: Weight 55.338 kg Results 08/08/23 18:57 08/08/23 18:57 Cardiac Enzymes 08/08/23 Range/Units 18:57 AST 37 (17-59) U/L CBC 08/08/23 Range/Units 18:57 WBC 12.1 H (3.8-10.6) k/uL RBC 4.30 (4.30-5.90) m/uL Hgb 13.8 (13.0-17.5) gm/dL Hct 40.0 (39.0-53.0) % Plt Count 161 (150-450) k/uL Comprehensive Metabolic Panel 08/08/23 Range/Units 18:57 Sodium 132 L (137-145) mmol/L Potassium 5.0 (3.5-5.1) mmol/L Chloride 101 (98-107) mmol/L Carbon Dioxide 23 (22-30) mmol/L BUN 24 H (9-20) mg/dL Creatinine 0.67 (0.66-1.25) mg/dL Glucose 195 H (74-99) mg/dL Calcium 9.4 (8.4-10.2) mg/dL AST 37 (17-59) U/L ALT 21 (4-49) U/L Alkaline Phosphatase 74 (38-126) U/L Total Protein 7.7 (6.3-8.2) g/dL Albumin 4.5 (3.5-5.0) g/dL Current Medications Generic Name Dose Route Start Last Admin Trade Name Freq PRN Reason Stop Dose Admin Naloxone HCl 0.2 mg 08/09/23 00:35 Naloxone 0.4 Mg/Ml 1 Ml Vial IV Q2M PRN Opioid Reversal Intake and Output 08/08/23 08/09/23 08/09/23 22:59 06:59 14:59 Other: Weight 55.338 kg 08/08/23 18:57 08/08/23 18:57
[2023-08-09 11:56] LABS: Glucose,Whole Blood 151 mg/dL (70-110)
[2023-08-09] MEDS: INSULIN ASPART (NovoLOG) 100 UNIT/ML VIAL SQ SCH (12:15)
--- NOTE | 2023-08-09 16:21 | P.HPIM ---
History of Present Illness H&P Date: 08/09/23 Chief Complaint: Abdominal pain 82-year-old male with past medical history including diabetes, glaucoma, abdominal aortic aneurysm and bilateral iliac artery aneurysms who presented to the hospital with abdominal pain. Patient states he had some abdominal discomfort in the mid to lower abdomen yesterday and followed by some vomiting yesterday evening. This morning he states he has no abdominal pain, no nausea or vomiting. He was also noted to have an arrhythmia this admission. Patient has known abdominal aortic aneurysm with bilateral iliac artery aneurysms and was seen by vascular surgery during his last admission in June 2023. At that time it was recommended that he undergo endovascular aortic repair abdominal and iliac aneurysms. At that time patient declined any surgical procedures. He was followed up in the office where he was still recommended to have endovascular repair, however patient again declined wanting to move forward with any surgical repair. Again patient currently denies any shortness of breath, chest pain, abdominal pain, nausea or vomiting. During this admission he had a repeat CT angiogram of the abdomen and pelvis that reported persistent stable appearing aneurysms of the aorta and iliac vessels, early contrast phase for the arterial evaluation. However contrast does not extend into the distal iliac vessels. Uncertain whether this is related to slow flow or obstruction. Clinical correlation with palpable femoral pulses are ultrasound to document flow may be useful. CT abdomen pelvis findings otherwise stable. Review of Systems REVIEW OF SYSTEMS: CONSTITUTIONAL: No fever, no malaise, no fatigue. HEENT: No recent visual problems or hearing problems. Denied any sore throat. CARDIOVASCULAR: No chest pain, orthopnea, PND, no palpitations, no syncope. PULMONARY: No shortness of breath, no cough, no hemoptysis. GASTROINTESTINAL: No diarrhea, no nausea, no vomiting, no abdominal pain. NEUROLOGICAL: No headaches, no weakness, no numbness. HEMATOLOGICAL: Denies any bleeding or petechiae. GENITOURINARY: Denies any burning micturition, frequency, or urgency. MUSCULOSKELETAL/RHEUMATOLOGICAL: Denies any joint pain, swelling, or any muscle pain. ENDOCRINE: Denies any polyuria or polydipsia. The rest of the 14-point review of systems is negative. Past Medical History Past Medical History: Diabetes Mellitus Additional Past Medical History / Comment(s): glaucoma aortic aneursym History of Any Multi-Drug Resistant Organisms: None Reported Past Surgical History: Back Surgery Past Anesthesia/Blood Transfusion Reactions: No Reported Reaction Past Psychological History: No Psychological Hx Reported Smoking Status: Former smoker Past Alcohol Use History: None Reported Past Drug Use History: None Reported Medications and Allergies Home Medications Medication Instructions Recorded Confirmed Type Dorzolamide/Timolol/Pf 1 drop BOTH EYES BID 04/02/22 08/08/23 History [Dorzolamide 2%-Timolol 0.5%] Latanoprost [Latanoprost 0.005%] 1 drop BOTH EYES HS 04/02/22 08/08/23 History metFORMIN HCL [Glucophage] 1,000 mg PO BID-W/MEALS 07/05/23 08/08/23 History Multivitamins, Thera [Multivitamin 1 tab PO DAILY 08/08/23 08/08/23 History (formulary)] Allergies Allergy/AdvReac Type Severity Reaction Status Date / Time No Known Allergies Allergy Verified 07/05/23 20:35 Physical Exam Vitals: Vital Signs Temp Pulse Resp BP Pulse Ox 08/09/23 09:00 58 L 18 173/58 96 08/09/23 06:08 98.4 F 86 14 170/93 96 08/09/23 03:08 91 18 161/78 97 08/08/23 22:30 88 18 135/88 98 08/08/23 21:30 85 18 141/89 97 08/08/23 20:00 82 18 158/77 98 08/08/23 18:39 97.4 F L 63 20 147/81 98 Intake and Output 08/08/23 08/09/23 08/09/23 22:59 06:59 14:59 Other: Weight 55.338 kg General appearance: The patient is alert, oriented, appears in no acute distress. HET: Head is normocephalic and atraumatic. Pupils are equal and reactive. Hard of hearing. Neck: Supple. Heart: Regular. Lungs: Equal expansion, normal respiratory effort. Abdomen: Soft, nontender, nondistended. Extremities: Normal skin color and turgor. Palpable femoral pulses, palpable bilateral DP pulses. Neurological: No focal deficits. Results CBC & Chem 7: 08/08/23 18:57 08/08/23 18:57 Labs: Abnormal Lab Results - Last 24 Hours (Table) 08/08/23 08/08/23 08/08/23 Range/Units 18:57 18:57 23:42 WBC 12.1 H (3.8-10.6) k/uL Neutrophils # 9.9 H (1.3-7.7) k/uL Sodium 132 L (137-145) mmol/L BUN 24 H (9-20) mg/dL Glucose 195 H (74-99) mg/dL Amylase 132 H (30-110) U/L Ur Specific [place] 1.040 H (1.001-1.035) Urine Protein Trace H (Negative) Urine Glucose (UA) 1+ H (Negative) Urine Ketones 1+ H (Negative) Assessment and Plan Assessment: 1. Aortoiliac aneurysmal disease --Patient has been evaluated by vascular surgery; CT scan findings are stable from last admission -- Patient is recommended endovascular repair of aortoiliac aneurysms; patient is declining surgical intervention at this time -- Patient has been made aware of the risk of fracture and -- Medical management is recommended 2. Sinus arrhythmia; rule out high degree heart block -- Patient remains on telemetry; will monitor EKG and trend troponin -- Cardiology recommending 2D echo and Doppler to assess cardiac structure and function -- Further recommendations pending clinical course 3. Abdominal pain; currently resolved; concern of possible relation to aneurysm 4. Diabetes mellitus type 2; will monitor Accu-Cheks before every meal and at bedtime with insulin sliding scale; patient takes metformin 1000 mg twice daily which is placed on hold while inpatient DVT prophylaxis; SCDs CODE STATUS; full code
[2023-08-09 17:13] LABS: Glucose,Whole Blood 187 mg/dL (70-110)
--- NOTE | 2023-08-09 17:32 | CA ---
Transthoracic Echo Report Name: Pro Price Age: 83 Gender: M : 1940 Exam Date: 08/09/2023 11:13 Exam Location: [place] [facility] Ht (in): 66 Wt (lb): 122 Ordering Physician: Aracely Marcelo Attending/Referring Phys: [id number], Davian Appellate Conferee Brenna Hurd RDCS Procedure CPT: Indications: LVF Cardiac Hx: Technical Quality: Good Contrast 1: Total Dose (mL): Contrast 2: Total Dose (mL): MEASUREMENTS (Male / Female) Normal Values 2D ECHO LV Diastolic Diameter PLAX 4.4 cm 4.2 - 5.9 / 3.9 - 5.3 cm LV Systolic Diameter PLAX 3.1 cm IVS Diastolic Thickness 0.9 cm 0.6 - 1.0 / 0.6 - 0.9 cm LVPW Diastolic Thickness 1.1 cm 0.6 - 1.0 / 0.6 - 0.9 cm LV Relative Wall Thickness 0.5 RV Internal Dim ED PLAX 3.2 cm LVOT Diameter 2.5 cm LA Systolic Diameter LX 3.5 cm 3.0 - 4.0 / 2.7 - 3.8 cm LV Diastolic Volume MOD 4C 132.5 cm??? LV Systolic Volume MOD 4C 67.6 cm??? LV Ejection Fraction MOD 4C 48.9 % LV Cardiac Index MOD 4C 2269.2 cm???/min???m??? LV Diastolic Length 4C 7.7 cm LV Systolic Length 4C 6.4 cm LV Diastolic Volume MOD 2C 97.2 cm??? LV Systolic Volume MOD 2C 42.0 cm??? LV Ejection Fraction MOD 2C 56.8 % LV Cardiac Index MOD 2C 1932.5 cm???/min???m??? LV Diastolic Length 2C 8.6 cm LV Systolic Length 2C 6.8 cm LA Volume 53.2 cm??? 18 - 58 / 22 - 52 cm??? LA Volume Index 33.2 cm???/m??? 16 - 28 cm???/m??? DOPPLER AV Peak Velocity 125.4 cm/s AV Peak Gradient 6.3 mmHg AI Peak Velocity 278.9 cm/s AI Peak Gradient 31.1 mmHg AI Pressure Half Time 1073.9 ms MV Area PHT 3.6 cm??? Mitral E Point Velocity 78.3 cm/s Mitral A Point Velocity 92.3 cm/s Mitral E to A Ratio 0.8 MV Deceleration Time 207.9 ms TR Peak Velocity 246.1 cm/s TR Peak Gradient 24.2 mmHg Right Ventricular Systolic Press 29.1 mmHg FINDINGS Left Ventricle Left ventricular ejection fraction is estimated at 55-60 %. Left ventricular cavity size normal. Left ventricular wall thickness normal. Right Ventricle Normal right ventricular size and function. Right ventricular systolic pressure within normal limits. Right Atrium Normal right atrial size. Left Atrium Mildly increased left atrial volume. Mitral Valve Mild mitral annular calcification. Mild mitral regurgitation. Aortic Valve Trileaflet aortic valve. Thickened aortic valve without stenosis. Mild aortic regurgitation. Tricuspid Valve Structurally normal tricuspid valve. Mild tricuspid regurgitation. Pulmonic Valve Structurally normal pulmonic valve. Mild pulmonic regurgitation. Pericardium No pericardial effusion. Aorta Normal size aortic root and proximal ascending aorta. CONCLUSIONS Normal LV systolic function mild mitral and aortic regurgitation Previewed by: Dr. Raji Graves MD (Electronically Signed) Final Date: 09 August 2023 17:32
[2023-08-09 21:55] LABS: Glucose,Whole Blood 185 mg/dL (70-110)
[2023-08-10] MEDS: hydrALAZINE HCL 20 MG/ML 1 ML VIAL IVP PRN (05:52)
[2023-08-10 06:02] LABS: Glucose,Whole Blood 162 mg/dL (70-110)
[2023-08-10 08:05] LABS: Basophils % (A) 0 %; Eosinophils # (A) 0.1 k/uL (0-0.7); Eosinophils % (A) 1 %; HCT 36.6 % (39.0-53.0); Lymphocytes # (A) 1.4 k/uL (1.0-4.8); Lymphocytes % (A) 14 %; MCH 32.5 pg (25.0-35.0); MCHC 35.6 g/dL (31.0-37.0); MCV 91.3 fL (80.0-100.0); Monocytes # (A) 0.7 k/uL (0-1.0); Monocytes % (A) 7 %; Neutrophils # (A) 7.7 k/uL (1.3-7.7); Neutrophils % (A) 78 %; Platelet Count 169 k/uL (150-450); RBC 4.01 m/uL (4.30-5.90); RDW 13.5 % (11.5-15.5); WBC 9.9 k/uL (3.8-10.6)
[2023-08-10 08:18] LABS: African American GFR (CKD) >90 (>60 ml/min/1.73 sqM); Anion Gap 9 mmol/L; Blood Urea Nitrogen 18 mg/dL (9-20); Carbon Dioxide 23 mmol/L (22-30); Chloride 100 mmol/L (98-107); Glucose 127 mg/dL (74-99); Non-African American GFR(CKD) >90 (>60 ml/min/1.73 sqM); Potassium 3.7 mmol/L (3.5-5.1); Sodium 132 mmol/L (137-145)
[2023-08-10 11:26] LABS: Glucose,Whole Blood 182 mg/dL (70-110)
--- NOTE | 2023-08-10 14:38 | P.PN ---
Subjective Progress Note Date: 08/10/23 82-year-old male with past medical history including diabetes, glaucoma, abdominal aortic aneurysm and bilateral iliac artery aneurysms who presented to the hospital with abdominal pain. Patient states he had some abdominal discomfort in the mid to lower abdomen yesterday and followed by some vomiting yesterday evening. This morning he states he has no abdominal pain, no nausea or vomiting. He was also noted to have an arrhythmia this admission. Patient has known abdominal aortic aneurysm with bilateral iliac artery aneurysms and was seen by vascular surgery during his last admission in June 2023. At that time it was recommended that he undergo endovascular aortic repair abdominal and iliac aneurysms. At that time patient declined any surgical procedures. He was followed up in the office where he was still recommended to have endovascular repair, however patient again declined wanting to move forward with any surgical repair. Again patient currently denies any shortness of breath, chest pain, abdominal pain, nausea or vomiting. During this admission he had a repeat CT angiogram of the abdomen and pelvis that reported persistent stable appearing aneurysms of the aorta and iliac vessels, early contrast phase for the arterial evaluation. However contrast does not extend into the distal iliac vessels. Uncertain whether this is related to slow flow or obstruction. Clinical correlation with palpable femoral pulses are ultrasound to document flow may be useful. CT abdomen pelvis findings otherwise stable. Objective - Vital Signs Vital signs: Vital Signs Temp 98.1 F 08/10/23 11:22 Pulse 104 H 08/10/23 11:22 Resp 17 08/10/23 11:22 BP 148/84 08/10/23 11:22 Pulse Ox 94 L 08/10/23 11:22 FiO2 Intake & Output 08/09/23 08/10/23 08/10/23 18:59 06:59 18:59 Intake Total 180 Balance 180 Weight 55.5 kg Intake: Oral 180 Other: Voiding Method Toilet Urinal - Exam General appearance: The patient is alert, oriented, appears in no acute distress. HET: Head is normocephalic and atraumatic. Pupils are equal and reactive. Hard of hearing. Neck: Supple. Heart: Regular. Lungs: Equal expansion, normal respiratory effort. Abdomen: Soft, nontender, nondistended. Extremities: Normal skin color and turgor. Palpable femoral pulses, palpable bilateral DP pulses. Neurological: No focal deficits. - Labs CBC & Chem 7: 08/10/23 07:29 08/10/23 07:29 Labs: Abnormal Lab Results - Last 24 Hours (Table) 08/09/23 08/09/23 08/09/23 Range/Units 11:54 17:10 21:51 RBC (4.30-5.90) m/uL Hct (39.0-53.0) % Sodium (137-145) mmol/L Creatinine (0.66-1.25) mg/dL Glucose (74-99) mg/dL POC Glucose (mg/dL) 151 H 187 H 185 H (70-110) mg/dL 08/10/23 08/10/23 08/10/23 Range/Units 05:47 07:29 07:29 RBC 4.01 L (4.30-5.90) m/uL Hct 36.6 L (39.0-53.0) % Sodium 132 L (137-145) mmol/L Creatinine 0.60 L (0.66-1.25) mg/dL Glucose 127 H (74-99) mg/dL POC Glucose (mg/dL) 162 H (70-110) mg/dL 08/10/23 Range/Units 11:24 RBC (4.30-5.90) m/uL Hct (39.0-53.0) % Sodium (137-145) mmol/L Creatinine (0.66-1.25) mg/dL Glucose (74-99) mg/dL POC Glucose (mg/dL) 182 H (70-110) mg/dL Assessment and Plan Assessment: 1. Aortoiliac aneurysmal disease --Patient has been evaluated by vascular surgery; CT scan findings are stable from last admission -- Patient is recommended endovascular repair of aortoiliac aneurysms; patient is declining surgical intervention at this time -- Patient has been made aware of the risk of fracture and -- Medical management is recommended 2. Sinus arrhythmia; rule out high degree heart block -- Patient remains on telemetry; will monitor EKG and trend troponin -- Cardiology recommending 2D echo and Doppler to assess cardiac structure and function -- Further recommendations pending clinical course 3. Abdominal pain; currently resolved; concern of possible relation to aneurysm 4. Diabetes mellitus type 2; will monitor Accu-Cheks before every meal and at bedtime with insulin sliding scale; patient takes metformin 1000 mg twice daily which is placed on hold while inpatient DVT prophylaxis; SCDs CODE STATUS; full code
--- NOTE | 2023-08-10 16:09 | P.PN ---
Subjective Progress Note Date: 08/10/23 Principal diagnosis: ArrhythmiaArrhythmia The patient is an 83-year-old gentleman with diabetes and history of abdominal aortic aneurysm was admitted to the hospital with abdominal discomfort. We consulted to see the patient because of sinus arrhythmia and possible AV block. Reviewing the EKG revealed sinus rhythm with sinus arrhythmia and PACs. He underwent an echo which revealed normal LV systolic function was no significant valvular abnormalities. August 10, 2023 The patient was seen and evaluated this morning. He is asymptomatic. He is stable hemodynamically. No significant bradycardia noted. No advanced AV block noted. He is not on any AV pao carina agents. From a cardiovascular standpoint of view, we will continue the current medical regimen and follow-up with the patient. The examination is remarkable for regular rhythm with a distant heart sounds and systolic murmur at the right upper sternal border with clear breathing sounds bilaterally Assessment Abdominal discomfort Abnormal EKG. Reviewing the EKG shows sinus rhythm with sinus arrhythmia History of abdominal aortic aneurysm Preserved LV systolic function Plan Avoid any AV pao carina agents Follow-up with the patient Objective - Vital Signs Vital signs: Vital Signs Temp 98.1 F 08/10/23 11:22 Pulse 104 H 08/10/23 15:58 Resp 18 08/10/23 15:58 BP 162/79 08/10/23 15:58 Pulse Ox 95 08/10/23 15:58 FiO2 Intake & Output 08/09/23 08/10/23 08/10/23 18:59 06:59 18:59 Intake Total 538 Balance 538 Weight 55.5 kg Intake: Oral 538 Other: Voiding Method Toilet Urinal - Labs CBC & Chem 7: 08/10/23 07:29 08/10/23 07:29 Labs: Abnormal Lab Results - Last 24 Hours (Table) 08/09/23 08/09/23 08/10/23 Range/Units 17:10 21:51 05:47 RBC (4.30-5.90) m/uL Hct (39.0-53.0) % Sodium (137-145) mmol/L Creatinine (0.66-1.25) mg/dL Glucose (74-99) mg/dL POC Glucose (mg/dL) 187 H 185 H 162 H (70-110) mg/dL 08/10/23 08/10/23 08/10/23 Range/Units 07:29 07:29 11:24 RBC 4.01 L (4.30-5.90) m/uL Hct 36.6 L (39.0-53.0) % Sodium 132 L (137-145) mmol/L Creatinine 0.60 L (0.66-1.25) mg/dL Glucose 127 H (74-99) mg/dL POC Glucose (mg/dL) 182 H (70-110) mg/dL
[2023-08-10 16:23] LABS: Glucose,Whole Blood 199 mg/dL (70-110)
--- NOTE | 2023-08-10 17:39 | XR ---
EXAMINATION TYPE: XR abdomen 1V DATE OF EXAM: 08/10/2023 5:14 PM CLINICAL INDICATION:Male, 83 years old with history of severe abd pain; [facility] COMPARISON: 08/08/2023. TECHNIQUE: One radiographic view of the abdomen was obtained. FINDINGS: Gaseous distention of multiple loops of bowel are seen throughout the abdomen there is excr eted IV contrast within the urinary bladder findings slightly progressed compared to prior CT on . Upper quadrant calcified gallstone. Severe atherosclerosis of the arterial vasculature. IMPRESSION: Gaseous distention of multiple loops of bowel concerning for small bowel obstruction, a dedicated sma ll bowel follow-through is recommended to rule out obstruction. Findings there is progressed from 07/12 CT
[2023-08-10 20:40] LABS: Glucose,Whole Blood 193 mg/dL (70-110)
[2023-08-11 06:16] LABS: Glucose,Whole Blood 188 mg/dL (70-110)
--- NOTE | 2023-08-11 08:55 | P.PN ---
Subjective Progress Note Date: 08/11/23 Principal diagnosis: ArrhythmiaArrhythmia The patient is an 83-year-old gentleman with diabetes and history of abdominal aortic aneurysm was admitted to the hospital with abdominal discomfort. We consulted to see the patient because of sinus arrhythmia and possible AV block. Reviewing the EKG revealed sinus rhythm with sinus arrhythmia and PACs. He underwent an echo which revealed normal LV systolic function was no significant valvular abnormalities. August 10, 2023 The patient was seen and evaluated this morning. He is asymptomatic. He is stable hemodynamically. No significant bradycardia noted. No advanced AV block noted. He is not on any AV pao carina agents. From a cardiovascular standpoint of view, we will continue the current medical regimen and follow-up with the patient. The examination is remarkable for regular rhythm with a distant heart sounds and systolic murmur at the right upper sternal border with clear breathing sounds bilaterally August 11, 2023 The patient was seen and evaluated this morning. He was diagnosed with small bowel obstruction and NG tube was placed and he is feeling better. No symptoms of chest pain or chest discomfort and no shortness of breath. The echo showed normal LV systolic function with mild aortic regurgitation and no significant valvular abnormalities noted. The patient has been maintaining normal sinus mechanism. From the cardiovascular standpoint of view, no need for any further cardiac workup and the patient can be transferred out of the 3 S. we will follow-up with the patient on as needed case. The examination is remarkable for regular rhythm with a systolic murmur at the right upper sternal border with clear breathing sounds bilaterally and no edema was noted Assessment Abdominal discomfort Abnormal EKG. Reviewing the EKG shows sinus rhythm with sinus arrhythmia History of abdominal aortic aneurysm Preserved LV systolic function Plan Avoid any AV pao carina agents We will follow-up with the patient on as needed case Objective - Vital Signs Vital signs: Vital Signs Temp 97.8 F 08/11/23 07:54 Pulse 104 H 08/11/23 08:02 Resp 17 08/11/23 07:54 BP 166/99 08/11/23 07:54 Pulse Ox 94 L 08/11/23 07:54 FiO2 Intake & Output 08/10/23 08/11/23 08/11/23 18:59 06:59 18:59 Intake Total 778 10 Output Total 500 Balance 778 -490 Intake: IV 10 0.9 10 Oral 778 Output: Urine 500 Other: Voiding Method Toilet Urinal Urinal Urinal # Voids 1 2 # Bowel Movements 0 - Labs CBC & Chem 7: 08/10/23 07:29 08/10/23 07:29 Labs: Abnormal Lab Results - Last 24 Hours (Table) 08/10/23 08/10/23 08/10/23 Range/Units 11:24 16:22 20:08 POC Glucose (mg/dL) 182 H 199 H 193 H (70-110) mg/dL 08/11/23 Range/Units 06:02 POC Glucose (mg/dL) 188 H (70-110) mg/dL
[2023-08-11 10:16] LABS: African American GFR (CKD) >90 (>60 ml/min/1.73 sqM); Anion Gap 8 mmol/L; Blood Urea Nitrogen 25 mg/dL (9-20); Calcium 9.1 mg/dL (8.4-10.2); Carbon Dioxide 29 mmol/L (22-30); Chloride 98 mmol/L (98-107); Glucose 205 mg/dL (74-99); Non-African American GFR(CKD) 87 (>60 ml/min/1.73 sqM); Potassium 3.5 mmol/L (3.5-5.1); Sodium 135 mmol/L (137-145)
--- NOTE | 2023-08-11 10:38 | XR ---
EXAMINATION TYPE: XR chest 1V confirm line plcmt DATE OF EXAM: 08/11/2023 10:26 AM CLINICAL INDICATION:Male, 83 years old with history of NGT; COMPARISON: Chest radiographs from 05/05/2024 TECHNIQUE: XR chest 1V confirm line plcmt Frontal view of the chest. FINDINGS: Lungs/Pleura: There is no evidence of pleural effusion, focal consolidation, or pneumothorax. Pulmonary vascularity: Unremarkable. Heart/mediastinum: Cardiomediastinal silhouette is unremarkable. Atherosclerotic calcifications are seen in the aorta. Musculoskeletal: Degenerative changes of the shoulder joints. Other findings: None Lines/Tubes: Nasogastric tube with its distal tip and side-port projecting under the diaphragm. IMPRESSION: No acute cardiopulmonary disease/process.
[2023-08-11 11:49] LABS: Glucose,Whole Blood 200 mg/dL (70-110)
[2023-08-11] MEDS: SODIUM CHLORIDE 0.9% 1,000 ML IV SCH (11:53)
--- NOTE | 2023-08-11 15:26 | P.PN ---
Subjective Progress Note Date: 08/11/23 82-year-old male with past medical history including diabetes, glaucoma, abdominal aortic aneurysm and bilateral iliac artery aneurysms who presented to the hospital with abdominal pain. Patient states he had some abdominal discomfort in the mid to lower abdomen yesterday and followed by some vomiting yesterday evening. This morning he states he has no abdominal pain, no nausea or vomiting. He was also noted to have an arrhythmia this admission. Patient has known abdominal aortic aneurysm with bilateral iliac artery aneurysms and was seen by vascular surgery during his last admission in June 2023. At that time it was recommended that he undergo endovascular aortic repair abdominal and iliac aneurysms. At that time patient declined any surgical procedures. He was followed up in the office where he was still recommended to have endovascular repair, however patient again declined wanting to move forward with any surgical repair. Again patient currently denies any shortness of breath, chest pain, abdominal pain, nausea or vomiting. During this admission he had a repeat CT angiogram of the abdomen and pelvis that reported persistent stable appearing aneurysms of the aorta and iliac vessels, early contrast phase for the arterial evaluation. However contrast does not extend into the distal iliac vessels. Uncertain whether this is related to slow flow or obstruction. Clinical correlation with palpable femoral pulses are ultrasound to document flow may be useful. CT abdomen pelvis findings otherwise stable. 08/11/2023 Patient is seen and evaluated in room at bedside; daughter and are present in the room; patient reports improvement in abdominal pain --Had started complaining of abdominal pain yesterday at which time stat abdominal x-ray was done and it revealed small bowel obstruction; patient underwent NG tube placement and was placed on IV fluids; has remained n.p.o. -- Surgery is consulted for further recommendations on bowel obstruction; await recommendations --Patient admitted to ruled out high degree AV block; has been evaluated by cardiology and is deemed sinus rhythm with episodes of arrhythmia; AV pao blocking agents are recommended to be contraindicated -Patient could be discharged from cardiac standpoint Objective - Vital Signs Vital signs: Vital Signs Temp 97.8 F 08/11/23 07:54 Pulse 104 H 08/11/23 08:02 Resp 17 08/11/23 07:54 BP 166/99 08/11/23 07:54 Pulse Ox 94 L 08/11/23 07:54 FiO2 Intake & Output 08/10/23 08/11/23 08/11/23 18:59 06:59 18:59 Intake Total 778 10 Output Total 1999 Balance 778 -1989 Intake: IV 10 0.9 10 Oral 778 Output: Gastric Drainage 1500 Urine 500 Other: Voiding Method Toilet Urinal Urinal Urinal # Voids 1 2 # Bowel Movements 0 - Exam General appearance: The patient is alert, oriented, appears in no acute distress. HET: Head is normocephalic and atraumatic. Pupils are equal and reactive. Hard of hearing. Neck: Supple. Heart: Regular. Lungs: Equal expansion, normal respiratory effort. Abdomen: Soft, nontender, nondistended. Extremities: Normal skin color and turgor. Palpable femoral pulses, palpable bilateral DP pulses. Neurological: No focal deficits. - Labs CBC & Chem 7: 08/10/23 07:29 08/11/23 08:39 Labs: Abnormal Lab Results - Last 24 Hours (Table) 08/10/23 08/10/23 08/11/23 Range/Units 16:22 20:08 06:02 Sodium (137-145) mmol/L BUN (9-20) mg/dL Glucose (74-99) mg/dL POC Glucose (mg/dL) 199 H 193 H 188 H (70-110) mg/dL 08/11/23 Range/Units 08:39 Sodium 135 L (137-145) mmol/L BUN 25 H (9-20) mg/dL Glucose 205 H (74-99) mg/dL POC Glucose (mg/dL) (70-110) mg/dL Assessment and Plan Assessment: 1. Aortoiliac aneurysmal disease --Patient has been evaluated by vascular surgery; CT scan findings are stable from last admission -- Patient is recommended endovascular repair of aortoiliac aneurysms; patient is declining surgical intervention at this time -- Patient has been made aware of the risk of fracture and -- Medical management is recommended 2. Sinus arrhythmia; rule out high degree heart block -- Patient remains on telemetry; will monitor EKG and trend troponin -- Cardiology recommending 2D echo and Doppler to assess cardiac structure and function -- Further recommendations pending clinical course 3. Abdominal pain; currently resolved; concern of possible relation to aneurysm 4. Diabetes mellitus type 2; will monitor Accu-Cheks before every meal and at bedtime with insulin sliding scale; patient takes metformin 1000 mg twice daily which is placed on hold while inpatient DVT prophylaxis; SCDs CODE STATUS; full code
--- NOTE | 2023-08-11 15:58 | P.GSCN ---
History of Present Illness Consult date: 08/11/23 Reason for Consult: Bowel obstruction, abdominal pain History of present illness: CHIEF COMPLAINT: Abdominal pain with bowel obstruction HISTORY OF PRESENT ILLNESS: The patient is a 83 year old male who presents to the hospital with intractable abdominal pain include intractable nausea and vomiting. Patient reports not feeling well for the past 4 days since . Reports acute abdominal distention after eating normal foods for breakfast. Reports change in bowel habits with increasing constipation. Denies any prior colonoscopy. Currently, patient is being evaluated by cardiology with incidental finding of aneurysm. Since placement nasogastric tube, abdominal pain has improved. No passage of flatus. He denies any prior abdominal surgeries. PAST MEDICAL HISTORY: See list and reviewed PAST SURGICAL HISTORY: See list and reviewed MEDICATIONS: See list and reviewed ALLERGIES: See list and reviewed SOCIAL HISTORY: See list and reviewed FAMILY HISTORY: See list and reviewed REVIEW OF ORGAN SYSTEMS: CONSTITUTIONAL: No fevers or chills. No recent weight loss. EYES: Has glaucoma HEENT: No difficulties with hearing. No nosebleeds. No difficulty swallowing. Prior submucosal resection as a young adult. RESPIRATORY: Denies pneumonia. Denies any troubles with breathing or dyspnea on exertion. CARDIOVASCULAR: Denies any chest pain, palpitations, or recent heart attacks. GASTROINTESTINAL: Denies fatty food intolerance. Denies change in bowel habits and gas bloat. GENITOURINARY: Denies any blood in urine or increased urinary frequency. NEUROLOGICAL: Denies any numbness or tingling along the distal extremities. No seizure disorders or headaches. MUSCULOSKELETAL: Denies any back pain, stiffness or joint arthritis. SKIN: No current skin cancer. No rash. PSYCHIATRIC: Denies current depression or suicidal thoughts. ENDOCRINE: Has diabetes type 2, not insulin-dependent HEME/LYMPHATIC: Denies any lumps and bumps around the neck. No recent deep venous thrombosis. ALLERGY/IMMUNOLOGY: No immunoglobulin therapy. No immune deficiencies. BREAST: Denies current breast lumps, pain or nipple discharge. PHYSICAL EXAM: VITALS: Reviewed CONSTITUTIONAL: Well developed and in no acute distress. EYES: Conjuctivae without sclera icterus. Extraocular movements grossly intact. HEAD, EARS, NOSE, THROAT: Moist buccal mucosa. Head is atraumatic, normocephalic. Hears conversational speech. No nasal drainage. Nasogastric tube present with bilious content NECK: Supple. No JV distention. No thyroidomegaly. RESPIRATORY: Non-labored respirations and equal bilateral excursions. No gross wheezes. CARDIOVASCULAR: Palpable 2+ radial pulses. ABDOMEN: No diffuse peritonitis. LYMPH: No neck lymphadenopathy. MUSCULOSKELETAL: No clubbing cyanosis or edema SKIN: Warm and well perfused with good skin turgor. NEUROLOGIC: Cranial nerves II through XII grossly intact. No focal or lateralizing signs. PSYCH: Appropriate affect. Alert and oriented to person, place and time. Displays appropriate insight. CLINCAL LABS: Reviewed. WBC down 12.1 on admission to 9.9, normal. IMAGING: Independently reviewed. CT of the abdomen pelvis reviewed with angiogram of abdominal aortic aneurysm. Moderate dilated small bowel loops. Moderate stool retention within the ascending transverse descending colon. This is my independent interpretation. No specific transition point identified. Abdominal x-ray independent review demonstrate small bowel distention without gas in rectum suspicious for bowel obstruction. This is my independent interpretation. RADIOLOGY: Report reviewed. CT abdomen pelvis angiogram demonstrated ileus versus bowel obstruction. Additional studies advised. ECHO: Report reviewed demonstrate ejection fraction over 55%. ASSESSMENT: 1. Abdominal pain due to bowel obstruction 2. Abdominal aortic aneurysm 3. [id number] diabetes type 2 PLAN: 1. IV fluid hydration. 2. N.p.o. however may have ice chips popsicles 3. Currently patient undergoing cardiac risk assessment 4. Recommend small bowel follow-through to identify transition point of obstruction 5. Continue nasogastric tube ADVANCE DIRECTIVE: CODE STATUS in chart Thank you for this kind consultation. Past Medical History Past Medical History: Diabetes Mellitus Additional Past Medical History / Comment(s): glaucoma aortic aneursym History of Any Multi-Drug Resistant Organisms: None Reported Past Surgical History: Back Surgery Past Anesthesia/Blood Transfusion Reactions: No Reported Reaction Past Psychological History: No Psychological Hx Reported Smoking Status: Former smoker Past Alcohol Use History: None Reported Past Drug Use History: None Reported Medications and Allergies Home Medications Medication Instructions Recorded Confirmed Type Dorzolamide/Timolol/Pf 1 drop BOTH EYES BID 04/02/22 08/08/23 History [Dorzolamide 2%-Timolol 0.5%] Latanoprost [Latanoprost 0.005%] 1 drop BOTH EYES HS 04/02/22 08/08/23 History metFORMIN HCL [Glucophage] 1,000 mg PO BID-W/MEALS 07/05/23 08/08/23 History Multivitamins, Thera [Multivitamin 1 tab PO DAILY 08/08/23 08/08/23 History (formulary)] Allergies Allergy/AdvReac Type Severity Reaction Status Date / Time No Known Allergies Allergy Verified 07/05/23 20:35 Surgical - Exam Vital Signs Temp Pulse Resp BP Pulse Ox 97.4 F L 63 20 147/81 98 08/08/23 18:39 08/08/23 18:39 08/08/23 18:39 08/08/23 18:39 08/08/23 18:39 Results - Labs 08/10/23 07:29 08/11/23 08:39 Abnormal Lab Results - Last 24 Hours (Table) 08/10/23 08/10/23 08/11/23 Range/Units 16:22 20:08 06:02 Sodium (137-145) mmol/L BUN (9-20) mg/dL Glucose (74-99) mg/dL POC Glucose (mg/dL) 199 H 193 H 188 H (70-110) mg/dL 08/11/23 08/11/23 Range/Units 08:39 11:48 Sodium 135 L (137-145) mmol/L BUN 25 H (9-20) mg/dL Glucose 205 H (74-99) mg/dL POC Glucose (mg/dL) 200 H (70-110) mg/dL Diabetes panel 08/11/23 Range/Units 08:39 Sodium 135 L (137-145) mmol/L Potassium 3.5 (3.5-5.1) mmol/L Chloride 98 (98-107) mmol/L Carbon Dioxide 29 (22-30) mmol/L BUN 25 H (9-20) mg/dL Creatinine 0.70 (0.66-1.25) mg/dL Glucose 205 H (74-99) mg/dL Calcium 9.1 (8.4-10.2) mg/dL Calcium panel 08/11/23 Range/Units 08:39 Calcium 9.1 (8.4-10.2) mg/dL Pituitary panel 08/11/23 Range/Units 08:39 Sodium 135 L (137-145) mmol/L Potassium 3.5 (3.5-5.1) mmol/L Chloride 98 (98-107) mmol/L Carbon Dioxide 29 (22-30) mmol/L BUN 25 H (9-20) mg/dL Creatinine 0.70 (0.66-1.25) mg/dL Glucose 205 H (74-99) mg/dL Calcium 9.1 (8.4-10.2) mg/dL Adrenal panel 08/11/23 Range/Units 08:39 Sodium 135 L (137-145) mmol/L Potassium 3.5 (3.5-5.1) mmol/L Chloride 98 (98-107) mmol/L Carbon Dioxide 29 (22-30) mmol/L BUN 25 H (9-20) mg/dL Creatinine 0.70 (0.66-1.25) mg/dL Glucose 205 H (74-99) mg/dL Calcium 9.1 (8.4-10.2) mg/dL
[2023-08-11 16:26] LABS: Glucose,Whole Blood 170 mg/dL (70-110)
[2023-08-11 21:04] LABS: Glucose,Whole Blood 117 mg/dL (70-110)
[2023-08-11] MEDS: DORZOLAMIDE-TIMOLOL 2.23%/0.68 10ML BTL BOTH EYES SCH (21:21)
[2023-08-11] MEDS: LATANOPROST 0.005% OPHTH DROPS 2.5 ML BTL BOTH EYES SCH (21:22)
[2023-08-12 05:33] LABS: Glucose,Whole Blood 119 mg/dL (70-110)
--- NOTE | 2023-08-12 11:48 | P.PN ---
Subjective Progress Note Date: 08/12/23 Principal diagnosis: Aortoiliac aneurysm Patient is seen and examined today as a follow-up. General surgery has been consulted for concerns of ileus versus small bowel obstruction. Patient has NG tube in with approximately 200 mL of output. Apparently patient did have a bowel movement today no nausea or vomiting at this time. Abdominal pain improved. He continues to state he does not want any intervention for aorta iliac aneurysms. Recommendation is to follow-up outpatient. Objective - Vital Signs Vital signs: Vital Signs Temp 98.5 F 08/12/23 07:45 Pulse 91 08/12/23 07:45 Resp 16 08/12/23 07:45 BP 147/89 08/12/23 07:45 Pulse Ox 93 L 08/12/23 07:45 FiO2 Intake & Output 08/11/23 08/12/23 08/12/23 18:59 06:59 18:59 Output Total 800 200 Balance -800 -200 Weight 54.5 kg Output: Gastric Drainage 200 Urine 600 200 Other: Voiding Method Urinal Urinal # Voids 1 - Exam General appearance: The patient is alert, oriented, appears in no acute distress. HET: Head is normocephalic and atraumatic. Pupils are equal and reactive. Hard of hearing Neck: Supple. Heart: Regular. Lungs: Equal expansion, normal respiratory effort. Abdomen: Soft, nontender, nondistended. Extremities: Normal skin color and turgor. Bilateral lower extremities warm to the touch, good capillary refill. Neurological: No focal deficits. Alert and oriented. - Labs CBC & Chem 7: 08/10/23 07:29 08/11/23 08:39 Labs: Abnormal Lab Results - Last 24 Hours (Table) 08/11/23 08/11/23 08/11/23 Range/Units 08:39 11:48 16:23 Sodium 135 L (137-145) mmol/L BUN 25 H (9-20) mg/dL Glucose 205 H (74-99) mg/dL POC Glucose (mg/dL) 200 H 170 H (70-110) mg/dL 08/11/23 08/12/23 Range/Units 20:56 05:29 Sodium (137-145) mmol/L BUN (9-20) mg/dL Glucose (74-99) mg/dL POC Glucose (mg/dL) 117 H 119 H (70-110) mg/dL Assessment and Plan Assessment: 1. Aortobiiliac aneurysmal disease 2. Abdominal pain due to bowel obstruction 3. Diabetes mellitus Plan: Continue with recommendations from general surgery. Patient to follow-up with Dr. Caldwell after discharge. We will sign off at this time. The impression and plan of care has been dictated as directed. Dr. Caldwell I performed a history and examination of this patient, discussed the same with the dictator. I agree with the dictator's note ,documented as a scribe. Any additional findings or plans will be noted.
[2023-08-12 12:19] LABS: Glucose,Whole Blood 168 mg/dL (70-110)
--- NOTE | 2023-08-12 12:44 | FL ---
EXAMINATION: Gastrografin small bowel follow through DATE: 08/12/2023 CLINICAL INDICATION: 83-year-old male follow-up small bowel obstruction COMPARISON: Correlation CT 08/08/2023 Total Fluoroscopy Time: None 6 images obtained. FINDINGS: Gastrografin was administered through the patient's PEG tube. Oral contrast is seen to reach the colo n at 1 hour 20 minutes. Dilated small bowel loops measure up to 4.8 cm predominantly in the left side of the abdomen. There is gradual transition to normal caliber small bowel in the right side of the a bdomen. Incidentally, we note a severe aneurysmal dilatation left iliac artery up to 7.5 cm and up to 2.9 cm on the right. IMPRESSION: 1. Normal small bowel transit time of 1 hour 20 minutes. There is gradual transition to normal calibe r small bowel loops in the right side of the abdomen. Loops in the left side of the abdomen are dilat ed up to 4.8 cm. Findings suggest ileus versus resolving small bowel obstruction. 2. Note severe aneurysmal dilatation left iliac artery up to 7.5 cm. Vascular surgery evaluation if n ot already performed. Refer to CTA report of 08/08/2023 for further details.
--- NOTE | 2023-08-12 15:29 | P.PN ---
Subjective Progress Note Date: 08/12/23 CHIEF COMPLAINT: Small bowel obstruction HISTORY OF PRESENT ILLNESS: Patient mated to the hospital small bowel obstruction. He denies any abdominal pain. Denies any nausea. He had a small bowel BM this morning and then since the small bowel follow-through x-rays he has had multiple bowel movements. Patient reports that he is feeling better. Minimal output through the NG tube. Mild tachycardia improved. Afebrile. Small bowel follow-through x-ray reports normal small bowel transit time. Gradual transition to normal caliber small bowel loops in the right side of the abdomen. Loops in the left side of the abdomen are dilated up to 4.8 cm. Findings suggest ileus versus resolving small bowel obstruction. Noted severe aneurysmal dilation left iliac artery up to 7.5 cm. Patient seen by vascular surgery and recommending outpatient follow-up. PHYSICAL EXAM: VITAL SIGNS: Reviewed GENERAL: Well-developed in no acute distress. HEENT: No sclera icterus. Extraocular movements grossly intact. Moist buccal mucosa. Head is atraumatic, normocephalic. Hears conversational speech. No nasal drainage. NECK: Supple without lymphadenopathy. CHEST: Non-labored respirations and equal bilateral excursions. CARDIOVASCULAR: Palpable 2+ radial pulses. ABDOMEN: Soft. Nondistended. Nontender. MUSCULOSKELETAL: No clubbing or cyanosis. NEUROLOGIC: No focal or lateralizing signs. Cranial nerves II through XII grossly intact. PSYCH: Appropriate affect. Alert and oriented to person, place and time. SKIN: Well perfused. Good skin turgor. ASSESSMENT: 1. Resolving small bowel obstruction 2. Abdominal aortic aneurysm 3. Yui-erfeuyb-cfcxrwpat diabetes mellitus PLAN: -Continue NG tube for decompression -Keep patient n.p.o. except for ice chips and popsicles -Further recommendations forthcoming per surgeon -Continue supportive care -Encourage patient to increase activity level -Continue IV fluids Physician Human Resource Analyst note has been reviewed by physician. Signing provider agrees with the documented findings, assessment, and plan of care. Objective - Vital Signs Vital signs: Vital Signs Temp 98.5 F 08/12/23 07:45 Pulse 91 08/12/23 07:45 Resp 16 08/12/23 07:45 BP 147/89 08/12/23 07:45 Pulse Ox 93 L 08/12/23 07:45 FiO2 Intake & Output 08/11/23 08/12/23 08/12/23 18:59 06:59 18:59 Output Total 800 200 Balance -800 -200 Weight 54.5 kg Output: Gastric Drainage 200 Urine 600 200 Other: Voiding Method Urinal Urinal # Voids 1 # Bowel Movements 1 - Labs CBC & Chem 7: 08/10/23 07:29 08/11/23 08:39 Labs: Abnormal Lab Results - Last 24 Hours (Table) 08/11/23 08/11/23 08/12/23 Range/Units 16:23 20:56 05:29 POC Glucose (mg/dL) 170 H 117 H 119 H (70-110) mg/dL 08/12/23 Range/Units 12:13 POC Glucose (mg/dL) 168 H (70-110) mg/dL
--- NOTE | 2023-08-12 15:54 | P.PN ---
Subjective Progress Note Date: 08/12/23 82-year-old male with past medical history including diabetes, glaucoma, abdominal aortic aneurysm and bilateral iliac artery aneurysms who presented to the hospital with abdominal pain. Patient states he had some abdominal discomfort in the mid to lower abdomen yesterday and followed by some vomiting yesterday evening. This morning he states he has no abdominal pain, no nausea or vomiting. He was also noted to have an arrhythmia this admission. Patient has known abdominal aortic aneurysm with bilateral iliac artery aneurysms and was seen by vascular surgery during his last admission in June 2023. At that time it was recommended that he undergo endovascular aortic repair abdominal and iliac aneurysms. At that time patient declined any surgical procedures. He was followed up in the office where he was still recommended to have endovascular repair, however patient again declined wanting to move forward with any surgical repair. Again patient currently denies any shortness of breath, chest pain, abdominal pain, nausea or vomiting. During this admission he had a repeat CT angiogram of the abdomen and pelvis that reported persistent stable appearing aneurysms of the aorta and iliac vessels, early contrast phase for the arterial evaluation. However contrast does not extend into the distal iliac vessels. Uncertain whether this is related to slow flow or obstruction. Clinical correlation with palpable femoral pulses are ultrasound to document flow may be useful. CT abdomen pelvis findings otherwise stable. 08/11/2023 Patient is seen and evaluated in room at bedside; daughter and are present in the room; patient reports improvement in abdominal pain --Had started complaining of abdominal pain yesterday at which time stat abdominal x-ray was done and it revealed small bowel obstruction; patient underwent NG tube placement and was placed on IV fluids; has remained n.p.o. -- Surgery is consulted for further recommendations on bowel obstruction; await recommendations --Patient admitted to ruled out high degree AV block; has been evaluated by cardiology and is deemed sinus rhythm with episodes of arrhythmia; AV pao blocking agents are recommended to be contraindicated -Patient could be discharged from cardiac standpoint 08/12/2023 Patient is seen in follow-up being evaluated by general surgery along with cardiology scheduled for small bowel follow-through which is pending for this morning. Patient continues with an NG tube for decompression and reports no abdominal pain. Patient reports to having 1 small bowel movement and since having the barium for the upper GI study, patient reports to having multiple bowel movements. Patient reports to feeling much improved and would like to go home. Will await surgical recommendations and continue with n.p.o. for now until surgery clears. Patient is afebrile with no reported chest pain or shortness of breath. Encouraged to increase activity as tolerated Review of systems: Constitutional: No reports of fatigue, fever, or chills Cardiovascular: No reports of chest pain or palpitations Respiratory: No reports of shortness of breath or cough GI: No reports of nausea, vomiting, or diarrhea, reports improvement in abdominal pain : No reports of dysuria or retention Neurovascular: No reports of weakness or numbness All medications have been reviewed Physical exam: Gen: This is a 83-year-old male who is awake, alert and oriented x 3, well-d eveloped, well-nourished, thin built, elderly appearing HEENT: Head is atraumatic, normocephalic. Pupils equal, round. Sclerae is anicteric. NECK: Supple. No JVD. No lymphadenopathy. No thyromegaly. LUNGS: Clear to auscultation. No wheezes or rhonchi. No intercostal retractions. HEART: Regular rate and rhythm. No murmur. ABDOMEN: Soft. Bowel sounds are present. No masses. No tenderness. EXTREMITIES: No pedal edema. No calf tenderness. NEUROLOGICAL: Patient is awake, alert and oriented x3. Cranial nerves 2 through 12 are grossly intact. Assessment: Aortoiliac aneurysmal disease, evaluated by vascular surgery recommending endovascular repair and patient has declined Sinus arrhythmia, rule out high degree heart block Abdominal pain concerns of small bowel obstruction versus ileus Diabetes mellitus, type II GI prophylaxis DVT prophylaxis Full code Plan: Patient is seen and evaluated by cardiology along with vascular surgery as patient has had significant dilated aneurysm of the aorta recommending vascular surgery repair and patient has declined Cardiology evaluated the patient recommending outpatient follow-up and has been cleared by cardiology for discharge Patient being followed by general surgery underwent small bowel study through showing loops on the left side of the abdomen that are dilated up to 4.8 cm suggesting possible ileus versus resolving small bowel obstruction and a notable severe aneurysmal dilatation in the left iliac artery up to 7.5 cm Patient to continue with NG tube and n.p.o. with ice chips per surgery and will advance per surgery Continue monitoring Accu-Cheks before meals and at bedtime and will use sliding scale Will follow-up on repeat labs Encouraged increase activity as tolerated Due to multiple complex medical issues, prognosis is guarded The impression and plan of care has been dictated by Cony Mclean, Nurse Pract itioner as directed. Dr. Kuldeep MD I have performed a history and examination and MDM of this patient, discussed the same with the dictator, and agree with the dictator's assessment and plan as written ,documented as a scribe. Based on total visit time, I have performed more than 50% of the visit. Objective - Vital Signs Vital signs: Vital Signs Temp 98.5 F 08/12/23 07:45 Pulse 91 08/12/23 07:45 Resp 16 08/12/23 07:45 BP 147/89 08/12/23 07:45 Pulse Ox 93 L 08/12/23 07:45 FiO2 Intake & Output 08/11/23 08/12/23 08/12/23 18:59 06:59 18:59 Output Total 800 200 Balance -800 -200 Weight 54.5 kg Output: Gastric Drainage 200 Urine 600 200 Other: Voiding Method Urinal Urinal # Voids 1 # Bowel Movements 1 - Labs CBC & Chem 7: 08/10/23 07:29 08/11/23 08:39 Labs: Abnormal Lab Results - Last 24 Hours (Table) 08/11/23 08/11/23 08/12/23 Range/Units 16:23 20:56 05:29 POC Glucose (mg/dL) 170 H 117 H 119 H (70-110) mg/dL 08/12/23 Range/Units 12:13 POC Glucose (mg/dL) 168 H (70-110) mg/dL
[2023-08-12 16:56] LABS: Glucose,Whole Blood 195 mg/dL (70-110)
[2023-08-12 21:45] LABS: Glucose,Whole Blood 104 mg/dL (70-110)
[2023-08-13 06:07] LABS: Glucose,Whole Blood 132 mg/dL (70-110)
[2023-08-13 11:30] LABS: Basophils # (A) 0.02 X 10*3/uL (0.00-0.10); Basophils % (A) 0.3 %; Eosinophils # (A) 0.02 X 10*3/uL (0.04-0.35); Eosinophils % (A) 0.3 %; HCT 33.3 % (39.6-50.0); HGB 11.2 g/dL (13.0-17.0); Lymphocytes # (A) 0.95 X 10*3/uL (0.90-5.00); Lymphocytes % (A) 12.6 %; MCH 30.9 pg (27.0-32.0); MCHC 33.6 g/dL (32.0-37.0); MCV 91.7 FL (80.0-97.0); Mean Platelet Volume 8.9 FL (9.5-12.2); Monocytes # (A) 0.72 X 10*3/uL (0.20-1.00); Monocytes % (A) 9.5 %; NRBC Per 100 WBC 0 X 10*3/uL (0.00-0.01); Neutrophils % (A) 76.9 %; Platelet Count 146 X 10*3/uL (140-440); RBC 3.63 X 10*6/uL (4.40-5.60); RDW 13.6 % (11.5-14.5); WBC 7.54 X 10*3/uL (4.50-10.00)
[2023-08-13 11:38] LABS: Magnesium 1.8 mg/dL (1.5-2.4)
[2023-08-13 11:41] LABS: BUN/Creat Ratio 51.83 Ratio (12.00-20.00); Blood Urea Nitrogen 31.1 mg/dL (9.0-27.0); Calcium 8.4 mg/dL (8.7-10.3); Chloride 106 mmol/L (96-109); Glucose 131 mg/dL (70-110); Potassium 2.8 mmol/L (3.5-5.5); Sodium 147 mmol/L (135-145)
[2023-08-13] MEDS ORDERED: ZINC OXIDE PASTE (Z-GUARD) 1 APPLIC TOPICAL PRN (11:45)
[2023-08-13 12:48] LABS: Glucose,Whole Blood 158 mg/dL (70-110)
--- NOTE | 2023-08-13 12:55 | P.PN ---
Subjective Progress Note Date: 08/13/23 Principal diagnosis: Aortoiliac aneurysm Patient is seen and examined today as a follow-up. He is resting comfortably. General surgery following for small bowel obstruction. He had a small bowel follow-through yesterday reporting normal small bowel transit time gradual transition to normal caliber small bowel loops in the right side of the abdomen. Loops in the left side of the abdomen are dilated up to 4.8 cm. Findings suggest ileus versus resolving small bowel obstruction. Note severe aneurysm dilation left iliac artery up to 7.5cm. Patient has NG tube in with susanne roximately 200 mL of output. Abdominal pain improving. Objective - Vital Signs Vital signs: Vital Signs Temp 98.4 F 08/13/23 07:01 Pulse 97 08/13/23 08:30 Resp 18 08/13/23 08:30 BP 148/79 08/13/23 07:01 Pulse Ox 95 08/13/23 07:01 FiO2 Intake & Output 08/12/23 08/13/23 08/13/23 18:59 06:59 18:59 Other: Voiding Method Toilet Bedside Commode # Voids 1 # Bowel Movements 8 1 - Exam General appearance: The patient is alert, oriented, appears in no acute distress. HET: Head is normocephalic and atraumatic. Pupils are equal and reactive. Hard of hearing Neck: Supple. Heart: Regular. Lungs: Equal expansion, normal respiratory effort. Abdomen: Soft, nontender, nondistended. Extremities: Normal skin color and turgor. Bilateral lower extremities warm to the touch, good capillary refill. Neurological: No focal deficits. Alert and oriented. - Labs CBC & Chem 7: 08/13/23 08:04 08/13/23 08:04 Labs: Abnormal Lab Results - Last 24 Hours (Table) 08/12/23 08/13/23 08/13/23 Range/Units 16:45 06:04 08:04 RBC 3.63 L (4.40-5.60) X 10*6/uL Hgb 11.2 L (13.0-17.0) g/dL Hct 33.3 L (39.6-50.0) % MPV 8.9 L (9.5-12.2) FL Eosinophils # 0.02 L (0.04-0.35) X 10*3/uL Sodium (135-145) mmol/L Potassium (3.5-5.5) mmol/L Anion Gap (4.00-12.00) mmol/L BUN (9.0-27.0) mg/dL BUN/Creatinine Ratio (12.00-20.00) Ratio Glucose (70-110) mg/dL POC Glucose (mg/dL) 195 H 132 H (70-110) mg/dL Calcium (8.7-10.3) mg/dL 08/13/23 08/13/23 Range/Units 08:04 12:46 RBC (4.40-5.60) X 10*6/uL Hgb (13.0-17.0) g/dL Hct (39.6-50.0) % MPV (9.5-12.2) FL Eosinophils # (0.04-0.35) X 10*3/uL Sodium 147 H (135-145) mmol/L Potassium 2.8 L (3.5-5.5) mmol/L Anion Gap 19.00 H (4.00-12.00) mmol/L BUN 31.1 H (9.0-27.0) mg/dL BUN/Creatinine Ratio 51.83 H (12.00-20.00) Ratio Glucose 131 H (70-110) mg/dL POC Glucose (mg/dL) 158 H (70-110) mg/dL Calcium 8.4 L (8.7-10.3) mg/dL Assessment and Plan Assessment: 1. Aortobiiliac aneurysmal disease 2. Abdominal pain due to bowel obstruction 3. Diabetes mellitus Plan: Continue with recommendations from general surgery. Patient to follow-up with Dr. Caldwell after discharge to further discuss surgical intervention for aortobiiliac aneurysms. We will sign off at this time. Please do not hesitate to contact us if further needed. The impression and plan of care has been dictated as directed. Dr. Caldwell I performed a history and examination of this patient, discussed the same with the dictator. I agree with the dictator's note ,documented as a scribe. Any additional findings or plans will be noted.
[2023-08-13] MEDS ORDERED: Potassium Replacement Protocol 1 EACH MISC MISCELLANE PRN (13:30)
[2023-08-13] MEDS ORDERED: Magnesium Replacement Protocol 1 EACH MISC MISCELLANE PRN (13:30)
--- NOTE | 2023-08-13 13:34 | P.PN ---
Subjective Progress Note Date: 08/13/23 CHIEF COMPLAINT: Small bowel obstruction HISTORY OF PRESENT ILLNESS: Patient mated to the hospital small bowel obstruction. Patient denies any abdominal pain. He is having bowel movements. However, he is still having quite a bit of output through the NG tube. There is 450 mL output just from this morning. Afebrile. WBC 7.54 Hgb 11.2 platelets 146 sodium is 147 potassium 2.8 creatinine 0.6 magnesium 1.8 PHYSICAL EXAM: VITAL SIGNS: Reviewed GENERAL: Well-developed in no acute distress. HEENT: No sclera icterus. Extraocular movements grossly intact. Moist buccal mucosa. Head is atraumatic, normocephalic. Hears conversational speech. No nasal drainage. NECK: Supple without lymphadenopathy. CHEST: Non-labored respirations and equal bilateral excursions. CARDIOVASCULAR: Palpable 2+ radial pulses. ABDOMEN: Soft. Nondistended. Nontender. MUSCULOSKELETAL: No clubbing or cyanosis. NEUROLOGIC: No focal or lateralizing signs. Cranial nerves II through XII grossly intact. PSYCH: Appropriate affect. Alert and oriented to person, place and time. SKIN: Well perfused. Good skin turgor. ASSESSMENT: 1. Resolving small bowel obstruction 2. Abdominal aortic aneurysm 3. Whl-poefhah-kurosmwoq diabetes mellitus 4. Hypomagnesemia 5. Hypokalemia 6. Hyponatremia PLAN: -Continue NG tube for decompression -Keep patient n.p.o. except for ice chips and popsicles -Discussed with medicine service. Electrolytes to be corrected -Continue supportive care -Encourage patient to increase activity level -Continue IV fluids Physician Department Editor note has been reviewed by physician. Signing provider agrees with the documented findings, assessment, and plan of care. Objective - Vital Signs Vital signs: Vital Signs Temp 98.4 F 08/13/23 07:01 Pulse 97 08/13/23 08:30 Resp 18 08/13/23 08:30 BP 148/79 08/13/23 07:01 Pulse Ox 95 08/13/23 07:01 FiO2 Intake & Output 08/12/23 08/13/23 08/13/23 18:59 06:59 18:59 Other: Voiding Method Toilet Bedside Commode # Voids 1 # Bowel Movements 8 1 - Labs CBC & Chem 7: 08/13/23 08:04 08/13/23 08:04 Labs: Abnormal Lab Results - Last 24 Hours (Table) 08/12/23 08/13/23 08/13/23 Range/Units 16:45 06:04 08:04 RBC 3.63 L (4.40-5.60) X 10*6/uL Hgb 11.2 L (13.0-17.0) g/dL Hct 33.3 L (39.6-50.0) % MPV 8.9 L (9.5-12.2) FL Eosinophils # 0.02 L (0.04-0.35) X 10*3/uL Sodium (135-145) mmol/L Potassium (3.5-5.5) mmol/L Anion Gap (4.00-12.00) mmol/L BUN (9.0-27.0) mg/dL BUN/Creatinine Ratio (12.00-20.00) Ratio Glucose (70-110) mg/dL POC Glucose (mg/dL) 195 H 132 H (70-110) mg/dL Calcium (8.7-10.3) mg/dL 08/13/23 08/13/23 Range/Units 08:04 12:46 RBC (4.40-5.60) X 10*6/uL Hgb (13.0-17.0) g/dL Hct (39.6-50.0) % MPV (9.5-12.2) FL Eosinophils # (0.04-0.35) X 10*3/uL Sodium 147 H (135-145) mmol/L Potassium 2.8 L (3.5-5.5) mmol/L Anion Gap 19.00 H (4.00-12.00) mmol/L BUN 31.1 H (9.0-27.0) mg/dL BUN/Creatinine Ratio 51.83 H (12.00-20.00) Ratio Glucose 131 H (70-110) mg/dL POC Glucose (mg/dL) 158 H (70-110) mg/dL Calcium 8.4 L (8.7-10.3) mg/dL
[2023-08-13] MEDS: MAGNESIUM SULFATE-D5W PMX 1 GM in DEXTROSE/WATER 1 100ML.BAG IVPB ONE (14:01)
[2023-08-13] MEDS: POTASSIUM BICARBONATE/CIT AC 20 MEQ TABLET.EFF NG-TUBE SCH (14:01)
[2023-08-13] MEDS: DEXTROSE 5% IN WATER 1,000 ML IV ONE (14:08)
[2023-08-13 16:20] LABS: Glucose,Whole Blood 145 mg/dL (70-110)
[2023-08-13] MEDS: PANTOPRAZOLE 40 MG/10 ML VIAL IVP SCH (20:05)
[2023-08-13 20:25] LABS: Glucose,Whole Blood 162 mg/dL (70-110)
[2023-08-14] MEDS: D5W WITH KCL 20 MEQ/L 1,000 ML IV SCH (00:28)
[2023-08-14 05:54] LABS: Glucose,Whole Blood 201 mg/dL (70-110)
--- NOTE | 2023-08-14 06:23 | P.PN ---
Subjective Progress Note Date: 08/13/23 82-year-old male with past medical history including diabetes, glaucoma, abdominal aortic aneurysm and bilateral iliac artery aneurysms who presented to the hospital with abdominal pain. Patient states he had some abdominal discomfort in the mid to lower abdomen yesterday and followed by some vomiting yesterday evening. This morning he states he has no abdominal pain, no nausea or vomiting. He was also noted to have an arrhythmia this admission. Patient has known abdominal aortic aneurysm with bilateral iliac artery aneurysms and was seen by vascular surgery during his last admission in June 2023. At that time it was recommended that he undergo endovascular aortic repair abdominal and iliac aneurysms. At that time patient declined any surgical procedures. He was followed up in the office where he was still recommended to have endovascular repair, however patient again declined wanting to move forward with any surgical repair. Again patient currently denies any shortness of breath, chest pain, abdominal pain, nausea or vomiting. During this admission he had a repeat CT angiogram of the abdomen and pelvis that reported persistent stable appearing aneurysms of the aorta and iliac vessels, early contrast phase for the arterial evaluation. However contrast does not extend into the distal iliac vessels. Uncertain whether this is related to slow flow or obstruction. Clinical correlation with palpable femoral pulses are ultrasound to document flow may be useful. CT abdomen pelvis findings otherwise stable. 08/11/2023 Patient is seen and evaluated in room at bedside; daughter and are present in the room; patient reports improvement in abdominal pain --Had started complaining of abdominal pain yesterday at which time stat abdominal x-ray was done and it revealed small bowel obstruction; patient underwent NG tube placement and was placed on IV fluids; has remained n.p.o. -- Surgery is consulted for further recommendations on bowel obstruction; await recommendations --Patient admitted to ruled out high degree AV block; has been evaluated by cardiology and is deemed sinus rhythm with episodes of arrhythmia; AV pao blocking agents are recommended to be contraindicated -Patient could be discharged from cardiac standpoint 08/12/2023 Patient is seen in follow-up being evaluated by general surgery along with cardiology scheduled for small bowel follow-through which is pending for this morning. Patient continues with an NG tube for decompression and reports no abdominal pain. Patient reports to having 1 small bowel movement and since having the barium for the upper GI study, patient reports to having multiple bowel movements. Patient reports to feeling much improved and would like to go home. Will await surgical recommendations and continue with n.p.o. for now until surgery clears. Patient is afebrile with no reported chest pain or shortness of breath. Encouraged to increase activity as tolerated 08/13/2023 Patient is seen in follow-up this morning continues with an NG tube and n.p.o. except ice chips. Patient continues to have output noted in the NG tube approximately 200 mL today. Patient had small bowel follow-through suggestive of ileus versus resolving small bowel obstruction. Patient is having multiple bowel movements that are loose. Patient noted to have significant electrolyte abnormalities including a potassium of 2.7 and magnesium slightly low and will replace per protocol. Patient also had an elevated sodium of 147 and will transition IV to D5 and water and will also add potassium. Follow-up repeat labs. Vascular surgery following with no plans of intervention at this time recommending outpatient follow-up regarding aortoiliac disease. Review of systems: Constitutional: No reports of fatigue, fever, or chills Cardiovascular: No reports of chest pain or palpitations Respiratory: No reports of shortness of breath or cough GI: No reports of nausea, vomiting, or diarrhea, reports improvement in abdominal pain : No reports of dysuria or retention Neurovascular: No reports of weakness or numbness All medications have been reviewed Physical exam: Gen: This is a 83-year-old male who is awake, alert and oriented x 3, well- developed, well-nourished, thin built, elderly appearing HEENT: Head is atraumatic, normocephalic. Pupils equal, round. Sclerae is anicteric. NECK: Supple. No JVD. No lymphadenopathy. No thyromegaly. LUNGS: Diminished breath sounds bilaterally otherwise clear to auscultation. No wheezes or rhonchi. No intercostal retractions. HEART: Regular rate and rhythm. No murmur. ABDOMEN: Soft. Bowel sounds are present. No masses. Less tender EXTREMITIES: No pedal edema. No calf tenderness. NEUROLOGICAL: Patient is awake, alert and oriented x3. Cranial nerves 2 through 12 are grossly intact. Assessment: Aortoiliac aneurysmal disease, evaluated by vascular surgery recommending endovascular repair and patient has declined Sinus arrhythmia, rule out high degree heart block Abdominal pain concerns of small bowel obstruction versus ileus Hypomagnesemia, hypokalemia Diabetes mellitus, type II Mild protein calorie malnutrition with a BMI of 19.4 GI prophylaxis DVT prophylaxis Full code Plan: Patient is seen and evaluated by cardiology along with vascular surgery as patient has had significant dilated aneurysm of the aorta recommending vascular surgery repair and patient has declined. Patient to follow-up with vascular surgery outpatient Cardiology evaluated the patient recommending outpatient follow-up and has been cleared by cardiology for discharge Patient being followed by general surgery underwent small bowel study through showing loops on the left side of the abdomen that are dilated up to 4.8 cm suggesting possible ileus versus resolving small bowel obstruction and a notable severe aneurysmal dilatation in the left iliac artery up to 7.5 cm Patient to continue with NG tube and n.p.o. with ice chips per surgery and will advance per surgery Severe electrolyte abnormalities including a potassium of 2.6 and magnesium and will replace per protocol. Sodium was also 147 and will transition fluids to D5 and water and add potassium. Repeat labs ordered for a.m. Continue monitoring Accu-Cheks before meals and at bedtime and will use sliding scale Recommend PT/OT therapy evaluation Encouraged increase activity as tolerated Due to multiple complex medical issues, prognosis is guarded The impression and plan of care has been dictated by Cony Mclean, Nurse Practitioner as directed. Dr. Kuldeep MD I have performed a history and examination and MDM of this patient, discussed the same with the dictator, and agree with the dictator's assessment and plan as written ,documented as a scribe. Based on total visit time, I have performed more than 50% of the visit. Objective - Vital Signs Vital signs: Vital Signs Temp 98.4 F 08/13/23 07:01 Pulse 97 08/13/23 08:30 Resp 18 08/13/23 08:30 BP 148/79 08/13/23 07:01 Pulse Ox 95 08/13/23 07:01 FiO2 Intake & Output 08/12/23 08/13/23 08/13/23 18:59 06:59 18:59 Other: Voiding Method Toilet Bedside Commode # Voids 1 # Bowel Movements 8 1 - Labs CBC & Chem 7: 08/13/23 08:04 08/13/23 21:06 Labs: Abnormal Lab Results - Last 24 Hours (Table) 08/12/23 08/13/23 08/13/23 Range/Units 16:45 06:04 08:04 RBC 3.63 L (4.40-5.60) X 10*6/uL Hgb 11.2 L (13.0-17.0) g/dL Hct 33.3 L (39.6-50.0) % MPV 8.9 L (9.5-12.2) FL Eosinophils # 0.02 L (0.04-0.35) X 10*3/uL Sodium (135-145) mmol/L Potassium (3.5-5.5) mmol/L Anion Gap (4.00-12.00) mmol/L BUN (9.0-27.0) mg/dL BUN/Creatinine Ratio (12.00-20.00) Ratio Glucose (70-110) mg/dL POC Glucose (mg/dL) 195 H 132 H (70-110) mg/dL Calcium (8.7-10.3) mg/dL 08/13/23 08/13/23 Range/Units 08:04 12:46 RBC (4.40-5.60) X 10*6/uL Hgb (13.0-17.0) g/dL Hct (39.6-50.0) % MPV (9.5-12.2) FL Eosinophils # (0.04-0.35) X 10*3/uL Sodium 147 H (135-145) mmol/L Potassium 2.8 L (3.5-5.5) mmol/L Anion Gap 19.00 H (4.00-12.00) mmol/L BUN 31.1 H (9.0-27.0) mg/dL BUN/Creatinine Ratio 51.83 H (12.00-20.00) Ratio Glucose 131 H (70-110) mg/dL POC Glucose (mg/dL) 158 H (70-110) mg/dL Calcium 8.4 L (8.7-10.3) mg/dL
[2023-08-14 08:38] LABS: Magnesium 1.8 mg/dL (1.5-2.4)
[2023-08-14 08:39] LABS: Basophils # (A) 0.03 X 10*3/uL (0.00-0.10); Basophils % (A) 0.4 %; Eosinophils % (A) 1.4 %; HCT 32.7 % (39.6-50.0); HGB 11.2 g/dL (13.0-17.0); Lymphocytes # (A) 1.11 X 10*3/uL (0.90-5.00); Lymphocytes % (A) 16.1 %; MCH 30.9 pg (27.0-32.0); MCHC 34.3 g/dL (32.0-37.0); MCV 90.1 FL (80.0-97.0); Mean Platelet Volume 8.9 FL (9.5-12.2); Monocytes # (A) 0.76 X 10*3/uL (0.20-1.00); NRBC Per 100 WBC 0 X 10*3/uL (0.00-0.01); Neutrophils # (A) 4.88 X 10*3/uL (1.80-7.70); Neutrophils % (A) 70.8 %; Platelet Count 135 X 10*3/uL (140-440); RBC 3.63 X 10*6/uL (4.40-5.60); RDW 13.3 % (11.5-14.5)
[2023-08-14 08:44] LABS: BUN/Creat Ratio 43.17 Ratio (12.00-20.00); Blood Urea Nitrogen 25.9 mg/dL (9.0-27.0); Calcium 8.4 mg/dL (8.7-10.3); Carbon Dioxide 27.4 mmol/L (21.6-31.8); Chloride 104 mmol/L (96-109); Glucose 186 mg/dL (70-110); Potassium 2.8 mmol/L (3.5-5.5); Sodium 142 mmol/L (135-145)
[2023-08-14] MEDS ORDERED: Potassium Replacement Protocol 1 EACH MISC MISCELLANE PRN (09:15)
[2023-08-14] MEDS: POTASSIUM CHLORIDE 10 MEQ in WATER FOR INJECTION 1 100ML.BAG IVPB SCH (10:26)
[2023-08-14 11:39] LABS: Glucose,Whole Blood 126 mg/dL (70-110)
--- NOTE | 2023-08-14 15:34 | P.PN ---
Subjective Progress Note Date: 08/14/23 CHIEF COMPLAINT: Small bowel obstruction HISTORY OF PRESENT ILLNESS: Patient mated to the hospital small bowel obstruction. Patient denies any abdominal pain. He is having bowel movements. NG tube with 400 mL output. Afebrile. WBC 6.9 sodium is better from 1 47-1 42 potassium 2.8 creatinine 0.6 magnesium 1.8 PHYSICAL EXAM: VITAL SIGNS: Reviewed GENERAL: Well-developed in no acute distress. HEENT: No sclera icterus. Extraocular movements grossly intact. Moist buccal mucosa. Head is atraumatic, normocephalic. Hears conversational speech. No nasal drainage. NECK: Supple without lymphadenopathy. CHEST: Non-labored respirations and equal bilateral excursions. CARDIOVASCULAR: Palpable 2+ radial pulses. ABDOMEN: Soft. Nondistended. Nontender. MUSCULOSKELETAL: No clubbing or cyanosis. NEUROLOGIC: No focal or lateralizing signs. Cranial nerves II through XII grossly intact. PSYCH: Appropriate affect. Alert and oriented to person, place and time. SKIN: Well perfused. Good skin turgor. ASSESSMENT: 1. Resolving small bowel obstruction 2. Abdominal aortic aneurysm 3. Jrx-eolfzwy-bomdcjndy diabetes mellitus 4. Hypomagnesemia 5. Hypokalemia 6. Hyponatremia PLAN: -Discontinue NG tube -Start clear liquid diet -Medicine service correcting electrolytes -Encourage patient to ambulate Physician Conference Organizer note has been reviewed by physician. Signing provider agrees with the documented findings, assessment, and plan of care. Objective - Vital Signs Vital signs: Vital Signs Temp 98.1 F 08/14/23 12:32 Pulse 78 08/14/23 12:32 Resp 19 08/14/23 12:32 BP 157/84 08/14/23 12:32 Pulse Ox 100 08/14/23 12:32 FiO2 Intake & Output 08/13/23 08/14/23 08/14/23 18:59 06:59 18:59 Output Total 500 Balance -500 Output: Urine 500 Other: Voiding Method Toilet Toilet Bedside Commode Bedside Commode # Voids 2 # Bowel Movements 4 - Labs CBC & Chem 7: 08/14/23 06:11 08/14/23 06:11 Labs: Abnormal Lab Results - Last 24 Hours (Table) 08/13/23 08/13/23 08/13/23 Range/Units 16:19 20:24 21:06 RBC (4.40-5.60) X 10*6/uL Hgb (13.0-17.0) g/dL Hct (39.6-50.0) % Plt Count (140-440) X 10*3/uL MPV (9.5-12.2) FL Potassium 2.6 L* (3.5-5.1) mmol/L BUN/Creatinine Ratio (.00-.00) Ratio Glucose (70-110) mg/dL POC Glucose (mg/dL) 145 H 162 H (70-110) mg/dL Calcium (8.7-10.3) mg/dL 08/14/23 08/14/23 08/14/23 Range/Units 05:52 06:11 06:11 RBC 3.63 L (4.40-5.60) X 10*6/uL Hgb 11.2 L (13.0-17.0) g/dL Hct 32.7 L (39.6-50.0) % Plt Count 135 L (140-440) X 10*3/uL MPV 8.9 L (9.5-12.2) FL Potassium 2.8 L (3.5-5.1) mmol/L BUN/Creatinine Ratio 43.17 H (12.00-20.00) Ratio Glucose 186 H (70-110) mg/dL POC Glucose (mg/dL) 201 H (70-110) mg/dL Calcium 8.4 L (8.7-10.3) mg/dL 08/14/23 Range/Units 11:38 RBC (4.40-5.60) X 10*6/uL Hgb (13.0-17.0) g/dL Hct (39.6-50.0) % Plt Count (140-440) X 10*3/uL MPV (9.5-12.2) FL Potassium (3.5-5.1) mmol/L BUN/Creatinine Ratio (12.00-20.00) Ratio Glucose (70-110) mg/dL POC Glucose (mg/dL) 126 H (70-110) mg/dL Calcium (8.7-10.3) mg/dL
[2023-08-14 16:58] LABS: Glucose,Whole Blood 196 mg/dL (70-110)
[2023-08-14 20:25] LABS: Glucose,Whole Blood 139 mg/dL (70-110)
--- NOTE | 2023-08-15 05:55 | P.PN ---
Subjective Progress Note Date: 08/14/23 82-year-old male with past medical history including diabetes, glaucoma, abdominal aortic aneurysm and bilateral iliac artery aneurysms who presented to the hospital with abdominal pain. Patient states he had some abdominal discomfort in the mid to lower abdomen yesterday and followed by some vomiting yesterday evening. This morning he states he has no abdominal pain, no nausea or vomiting. He was also noted to have an arrhythmia this admission. Patient has known abdominal aortic aneurysm with bilateral iliac artery aneurysms and was seen by vascular surgery during his last admission in June 2023. At that time it was recommended that he undergo endovascular aortic repair abdominal and iliac aneurysms. At that time patient declined any surgical procedures. He was followed up in the office where he was still recommended to have endovascular repair, however patient again declined wanting to move forward with any surgical repair. Again patient currently denies any shortness of breath, chest pain, abdominal pain, nausea or vomiting. During this admission he had a repeat CT angiogram of the abdomen and pelvis that reported persistent stable appearing aneurysms of the aorta and iliac vessels, early contrast phase for the arterial evaluation. However contrast does not extend into the distal iliac vessels. Uncertain whether this is related to slow flow or obstruction. Clinical correlation with palpable femoral pulses are ultrasound to document flow may be useful. CT abdomen pelvis findings otherwise stable. 08/11/2023 Patient is seen and evaluated in room at bedside; daughter and are present in the room; patient reports improvement in abdominal pain --Had started complaining of abdominal pain yesterday at which time stat abdominal x-ray was done and it revealed small bowel obstruction; patient underwent NG tube placement and was placed on IV fluids; has remained n.p.o. -- Surgery is consulted for further recommendations on bowel obstruction; await recommendations --Patient admitted to ruled out high degree AV block; has been evaluated by cardiology and is deemed sinus rhythm with episodes of arrhythmia; AV pao blocking agents are recommended to be contraindicated -Patient could be discharged from cardiac standpoint 08/12/2023 Patient is seen in follow-up being evaluated by general surgery along with cardiology scheduled for small bowel follow-through which is pending for this morning. Patient continues with an NG tube for decompression and reports no abdominal pain. Patient reports to having 1 small bowel movement and since having the barium for the upper GI study, patient reports to having multiple bowel movements. Patient reports to feeling much improved and would like to go home. Will await surgical recommendations and continue with n.p.o. for now until surgery clears. Patient is afebrile with no reported chest pain or shortness of breath. Encouraged to increase activity as tolerated 08/13/2023 Patient is seen in follow-up this morning continues with an NG tube and n.p.o. except ice chips. Patient continues to have output noted in the NG tube approximately 200 mL today. Patient had small bowel follow-through suggestive of ileus versus resolving small bowel obstruction. Patient is having multiple bowel movements that are loose. Patient noted to have significant electrolyte abnormalities including a potassium of 2.7 and magnesium slightly low and will replace per protocol. Patient also had an elevated sodium of 147 and will transition IV to D5 and water and will also add potassium. Follow-up repeat labs. Vascular surgery following with no plans of intervention at this time recommending outpatient follow-up regarding aortoiliac disease. 08/14/2023 Patient is seen in follow-up this morning continues with the NG tube with general surgery following. Patient reports is having bowel movements and denies abdominal pain. Discussing possibly removing NG tube. Electrolytes continue to be low and will continue with potassium supplementation in the IV as well as protocol. Replace magnesium per protocol as well. Patient is afebrile with no reports of chest pain or shortness of breath. Patient anxious and wanting to go home. Patient with weakness encouraged increase activity as tolerated and will have PT/OT evaluate. Patient is currently n.p.o. and will likely initiate clears once NG tube is removed. Review of systems: Constitutional: No reports of fatigue, fever, or chills Cardiovascular: No reports of chest pain or palpitations Respiratory: No reports of shortness of breath or cough GI: No reports of nausea, vomiting, reports having bowel movements, reports improvement in abdominal pain : No reports of dysuria or retention Neurovascular: No reports of weakness or numbness All medications have been reviewed Physical exam: Gen: This is a 83-year-old male who is awake, alert and oriented x 3, well- developed, well-nourished, thin built, elderly appearing HEENT: Head is atraumatic, normocephalic. Pupils equal, round. Sclerae is anicteric. NECK: Supple. No JVD. No lymphadenopathy. No thyromegaly. LUNGS: Diminished breath sounds bilaterally otherwise clear to auscultation. No wheezes or rhonchi. No intercostal retractions. HEART: Regular rate and rhythm. No murmur. ABDOMEN: Soft. Bowel sounds are present. No masses. non-tender EXTREMITIES: No pedal edema. No calf tenderness. NEUROLOGICAL: Patient is awake, alert and oriented x3. Cranial nerves 2 through 12 are grossly intact. Assessment: Aortoiliac aneurysmal disease, evaluated by vascular surgery recommending endovascular repair and patient has declined Sinus arrhythmia, rule out high degree heart block Abdominal pain likely secondary to small bowel obstruction, improving Hypomagnesemia, hypokalemia being replaced per protocol Diabetes mellitus, type II Mild protein calorie malnutrition with a BMI of 19.4 GI prophylaxis DVT prophylaxis Full code Plan: Patient is seen and evaluated by cardiology along with vascular surgery as patient has had significant dilated aneurysm of the aorta recommending vascular surgery repair and patient has declined. Patient to follow-up with vascular surgery outpatient Cardiology evaluated the patient recommending outpatient follow-up and has been cleared by cardiology for discharge Patient being followed by general surgery underwent small bowel study through showing loops on the left side of the abdomen that are dilated up to 4.8 cm suggesting possible ileus versus resolving small bowel obstruction and a notable severe aneurysmal dilatation in the left iliac artery up to 7.5 cm Patient is currently with NG tube although being removed today and patient is being initiated on clear liquids as patient is having no abdominal pain and having bowel movements Severe electrolyte abnormalities including a potassium of 2.8 after replacement and will continue to replace per protocol and has been added to D5 and water as sodium was also noted to be elevated. Repeat labs ordered for a.m. Continue monitoring Accu-Cheks before meals and at bedtime and will use sliding scale Await PT/OT therapy evaluation Encouraged increase activity as tolerated Due to multiple complex medical issues, prognosis is guarded Will discuss with general surgery regarding planning for discharge in the next possible 24 to 48 hours The impression and plan of care has been dictated by Cony Mclean, Nurse Practitioner as directed. Dr. Kuldeep MD I have performed a history and examination and MDM of this patient, discussed the same with the dictator, and agree with the dictator's assessment and plan as written ,documented as a scribe. Based on total visit time, I have performed more than 50% of the visit. Objective - Vital Signs Vital signs: Vital Signs Temp 98.8 F 08/14/23 01:15 Pulse 85 08/14/23 01:15 Resp 16 08/14/23 01:15 BP 145/73 08/14/23 01:15 Pulse Ox 95 08/14/23 01:15 FiO2 Intake & Output 08/13/23 08/14/23 08/14/23 18:59 06:59 18:59 Output Total 500 Balance -500 Output: Urine 500 Other: Voiding Method Toilet Toilet Bedside Commode Bedside Commode # Voids 2 # Bowel Movements 4 - Labs CBC & Chem 7: 08/14/23 06:11 08/14/23 06:11 Labs: Abnormal Lab Results - Last 24 Hours (Table) 08/13/23 08/13/23 08/13/23 Range/Units 08:04 08:04 12:46 RBC 3.63 L (4.40-5.60) X 10*6/uL Hgb 11.2 L (13.0-17.0) g/dL Hct 33.3 L (39.6-50.0) % Plt Count (140-440) X 10*3/uL MPV 8.9 L (9.5-12.2) FL Eosinophils # 0.02 L (0.04-0.35) X 10*3/uL Sodium 147 H (135-145) mmol/L Potassium 2.8 L (3.5-5.5) mmol/L Anion Gap 19.00 H (4.00-12.00) mmol/L BUN 31.1 H (9.0-27.0) mg/dL BUN/Creatinine Ratio 51.83 H (12.00-20.00) Ratio Glucose 131 H (70-110) mg/dL POC Glucose (mg/dL) 158 H (70-110) mg/dL Calcium 8.4 L (8.7-10.3) mg/dL 08/13/23 08/13/23 08/13/23 Range/Units 16:19 20:24 21:06 RBC (4.40-5.60) X 10*6/uL Hgb (13.0-17.0) g/dL Hct (39.6-50.0) % Plt Count (140-440) X 10*3/uL MPV (9.5-12.2) FL Eosinophils # (0.04-0.35) X 10*3/uL Sodium (135-145) mmol/L Potassium 2.6 L* (3.5-5.5) mmol/L Anion Gap (4.00-12.00) mmol/L BUN (9.0-27.0) mg/dL BUN/Creatinine Ratio (12.00-20.00) Ratio Glucose (70-110) mg/dL POC Glucose (mg/dL) 145 H 162 H (70-110) mg/dL Calcium (8.7-10.3) mg/dL 08/14/23 08/14/23 08/14/23 Range/Units 05:52 06:11 06:11 RBC 3.63 L (4.40-5.60) X 10*6/uL Hgb 11.2 L (13.0-17.0) g/dL Hct 32.7 L (39.6-50.0) % Plt Count 135 L (140-440) X 10*3/uL MPV 8.9 L (9.5-12.2) FL Eosinophils # (0.04-0.35) X 10*3/uL Sodium (135-145) mmol/L Potassium 2.8 L (3.5-5.5) mmol/L Anion Gap (4.00-12.00) mmol/L BUN (9.0-27.0) mg/dL BUN/Creatinine Ratio 43.17 H (12.00-20.00) Ratio Glucose 186 H (70-110) mg/dL POC Glucose (mg/dL) 201 H (70-110) mg/dL Calcium 8.4 L (8.7-10.3) mg/dL
[2023-08-15 06:02] LABS: Glucose,Whole Blood 167 mg/dL (70-110)
[2023-08-15 06:37] LABS: African American GFR (CKD) >90 (>60 ml/min/1.73 sqM); Anion Gap 0 mmol/L; Blood Urea Nitrogen 18 mg/dL (9-20); Calcium 7.9 mg/dL (8.4-10.2); Carbon Dioxide 30 mmol/L (22-30); Chloride 101 mmol/L (98-107); Glucose 142 mg/dL (74-99); Magnesium 1.6 mg/dL (1.6-2.3); Non-African American GFR(CKD) 89 (>60 ml/min/1.73 sqM); Potassium 3.3 mmol/L (3.5-5.1); Sodium 131 mmol/L (137-145)
[2023-08-15 11:41] LABS: Glucose,Whole Blood 116 mg/dL (70-110)
[2023-08-15] MEDS: POTASSIUM CHLORIDE ER 20 MEQ TAB.ER PO SCH (11:58)
[2023-08-15 13:59] VITALS: BMI 19.3
[2023-08-15 15:13] VITALS: RESP 18
[2023-08-15] MEDS: MAGNESIUM SULFATE-D5W PMX 1 GM in DEXTROSE/WATER 1 100ML.BAG IVPB SCH (16:40)
[2023-08-15 16:42] LABS: Glucose,Whole Blood 274 mg/dL (70-110)
[2023-08-15 19:56] LABS: Glucose,Whole Blood 124 mg/dL (70-110)
--- NOTE | 2023-08-16 05:38 | P.PN ---
Subjective Progress Note Date: 08/15/23 82-year-old male with past medical history including diabetes, glaucoma, abdominal aortic aneurysm and bilateral iliac artery aneurysms who presented to the hospital with abdominal pain. Patient states he had some abdominal discomfort in the mid to lower abdomen yesterday and followed by some vomiting yesterday evening. This morning he states he has no abdominal pain, no nausea or vomiting. He was also noted to have an arrhythmia this admission. Patient has known abdominal aortic aneurysm with bilateral iliac artery aneurysms and was seen by vascular surgery during his last admission in June 2023. At that time it was recommended that he undergo endovascular aortic repair abdominal and iliac aneurysms. At that time patient declined any surgical procedures. He was followed up in the office where he was still recommended to have endovascular repair, however patient again declined wanting to move forward with any surgical repair. Again patient currently denies any shortness of breath, chest pain, abdominal pain, nausea or vomiting. During this admission he had a repeat CT angiogram of the abdomen and pelvis that reported persistent stable appearing aneurysms of the aorta and iliac vessels, early contrast phase for the arterial evaluation. However contrast does not extend into the distal iliac vessels. Uncertain whether this is related to slow flow or obstruction. Clinical correlation with palpable femoral pulses are ultrasound to document flow may be useful. CT abdomen pelvis findings otherwise stable. 08/11/2023 Patient is seen and evaluated in room at bedside; daughter and are present in the room; patient reports improvement in abdominal pain --Had started complaining of abdominal pain yesterday at which time stat abdominal x-ray was done and it revealed small bowel obstruction; patient underwent NG tube placement and was placed on IV fluids; has remained n.p.o. -- Surgery is consulted for further recommendations on bowel obstruction; await recommendations --Patient admitted to ruled out high degree AV block; has been evaluated by cardiology and is deemed sinus rhythm with episodes of arrhythmia; AV pao blocking agents are recommended to be contraindicated -Patient could be discharged from cardiac standpoint 08/12/2023 Patient is seen in follow-up being evaluated by general surgery along with cardiology scheduled for small bowel follow-through which is pending for this morning. Patient continues with an NG tube for decompression and reports no abdominal pain. Patient reports to having 1 small bowel movement and since having the barium for the upper GI study, patient reports to having multiple bowel movements. Patient reports to feeling much improved and would like to go home. Will await surgical recommendations and continue with n.p.o. for now until surgery clears. Patient is afebrile with no reported chest pain or shortness of breath. Encouraged to increase activity as tolerated 08/13/2023 Patient is seen in follow-up this morning continues with an NG tube and n.p.o. except ice chips. Patient continues to have output noted in the NG tube approximately 200 mL today. Patient had small bowel follow-through suggestive of ileus versus resolving small bowel obstruction. Patient is having multiple bowel movements that are loose. Patient noted to have significant electrolyte abnormalities including a potassium of 2.7 and magnesium slightly low and will replace per protocol. Patient also had an elevated sodium of 147 and will transition IV to D5 and water and will also add potassium. Follow-up repeat labs. Vascular surgery following with no plans of intervention at this time recommending outpatient follow-up regarding aortoiliac disease. 08/14/2023 Patient is seen in follow-up this morning continues with the NG tube with general surgery following. Patient reports is having bowel movements and denies abdominal pain. Discussing possibly removing NG tube. Electrolytes continue to be low and will continue with potassium supplementation in the IV as well as protocol. Replace magnesium per protocol as well. Patient is afebrile with no reports of chest pain or shortness of breath. Patient anxious and wanting to go home. Patient with weakness encouraged increase activity as tolerated and will have PT/OT evaluate. Patient is currently n.p.o. and will likely initiate clears once NG tube is removed. 08/15/2023 Patient is seen in follow-up today currently sitting up in the bed with family members at bedside. NG tube has been removed and patient denies any further abdominal pain. Patient tolerating clear liquids and diet is being advanced per surgery. Electrolyte abnormalities are improving although continue to remain slightly low. Potassium is 3.3 and magnesium 1.5 and will replace per protocol and follow-up with repeat labs. Patient reports to feeling much improved and would like to go home. Will monitor overnight for diet tolerance with discharge planning in 24 hours Review of systems: Constitutional: No reports of fatigue, fever, or chills Cardiovascular: No reports of chest pain or palpitations Respiratory: No reports of shortness of breath or cough GI: No reports of nausea, vomiting, reports having bowel movements, reports improvement in abdominal pain : No reports of dysuria or retention Neurovascular: No reports of weakness or numbness All medications have been reviewed Physical exam: Gen: This is a 83-year-old male who is awake, alert and oriented x 3, hard of hearing, well-developed, well-nourished, thin built, elderly appearing HEENT: Head is atraumatic, normocephalic. Pupils equal, round. Sclerae is anict chaz. NECK: Supple. No JVD. No lymphadenopathy. No thyromegaly. LUNGS: Diminished breath sounds bilaterally otherwise clear to auscultation. No wheezes or rhonchi. No intercostal retractions. HEART: Regular rate and rhythm. No murmur. ABDOMEN: Soft. Bowel sounds are present. No masses. non-tender EXTREMITIES: No pedal edema. No calf tenderness. NEUROLOGICAL: Patient is awake, alert and oriented x3. Cranial nerves 2 through 12 are grossly intact. Assessment: Abdominal pain, likely secondary to small bowel obstruction, improving Aortoiliac aneurysmal disease, evaluated by vascular surgery recommending endovascular repair and patient has declined Sinus arrhythmia, ruled out high degree heart block Hypomagnesemia, hypokalemia being replaced per protocol, improving Diabetes mellitus, type II Mild protein calorie malnutrition with a BMI of 19.4 GI prophylaxis DVT prophylaxis Full code Plan: Patient is seen and evaluated by cardiology along with vascular surgery as patient has had significant dilated aneurysm of the aorta recommending vascular surgery repair and patient has declined. Patient to follow-up with vascular surgery outpatient Cardiology evaluated the patient recommending outpatient follow-up and has been cleared by cardiology for discharge Patient being followed by general surgery underwent small bowel study through showing loops on the left side of the abdomen that are dilated up to 4.8 cm suggesting possible ileus versus resolving small bowel obstruction and a notable severe aneurysmal dilatation in the left iliac artery up to 7.5 cm Patient has had the NG tube removed and tolerating clear liquids and being advanced to full liquids per general surgery Patient is having bowel movements and denies any further abdominal pain Electrolytes continue to be slightly low at potassium of 3.3 and magnesium 1.5 and will replace per protocol and follow-up on repeat labs Continue monitoring Accu-Cheks before meals and at bedtime and will use sliding scale Encouraged increase activity as tolerated Due to multiple complex medical issues, prognosis is guarded Possible discharge in next 24 hours The impression and plan of care has been dictated by Cony Mclean, Nurse Practitioner as directed. Dr. Klaus MD I have performed a history and examination and MDM of this patient, discussed the same with the dictator, and agree with the dictator's assessment and plan as written ,documented as a scribe. Based on total visit time, I have performed more than 50% of the visit. Objective - Vital Signs Vital signs: Vital Signs Temp 97.5 F L 08/15/23 14:05 Pulse 74 08/15/23 14:05 Resp 18 08/15/23 14:05 BP 117/70 08/15/23 14:05 Pulse Ox 97 08/15/23 14:05 FiO2 Intake & Output 08/14/23 08/15/23 08/15/23 18:59 06:59 18:59 Output Total 550 Balance -550 Weight 54.5 kg Output: Urine 550 Other: # Voids 2 - Labs CBC & Chem 7: 08/14/23 06:11 08/15/23 19:48 Labs: Abnormal Lab Results - Last 24 Hours (Table) 08/14/23 08/14/23 08/15/23 Range/Units 16:57 20:23 05:51 Sodium 131 L (137-145) mmol/L Potassium 3.3 L (3.5-5.1) mmol/L Creatinine 0.65 L (0.66-1.25) mg/dL Glucose 142 H (74-99) mg/dL POC Glucose (mg/dL) 196 H 139 H (70-110) mg/dL Calcium 7.9 L (8.4-10.2) mg/dL 08/15/23 08/15/23 Range/Units 05:57 11:40 Sodium (137-145) mmol/L Potassium (3.5-5.1) mmol/L Creatinine (0.66-1.25) mg/dL Glucose (74-99) mg/dL POC Glucose (mg/dL) 167 H 116 H (70-110) mg/dL Calcium (8.4-10.2) mg/dL
[2023-08-16 06:03] LABS: Glucose,Whole Blood 157 mg/dL (70-110)
[2023-08-16 07:46] VITALS: BP 132/74; PULSE 72; TEMP 98.1
--- NOTE | 2023-08-16 09:08 | XR ---
EXAMINATION TYPE: XR abdomen 2V DATE OF EXAM: 08/16/2023 CLINICAL DATA: 83-year-old male follow-up small bowel obstruction, [facility] COMPARISON: 08/12/2023 FINDINGS: Lung bases are clear. No evidence for free intraperitoneal air. Some retained oral contrast material in the left side of the colon. Scattered colonic air especially along the transverse colon and some within the rectum as well. Some air-fluid levels remain no located throughout both colon and small bowel. Small bowel estimated to measure up to 4.1 cm, versus 4.8 cm on the small bowel follow-through 08/12/2023. 1.9 cm calcification right mid abdomen. Aneurysms of the common iliac arteries, severe involving the left side measuring up to 7.1 cm. IMPRESSION: 1. There is some increasing colonic air. Most of the administered oral contrast has evacuated with so me residual remaining in the left side of the colon. 2. Scattered air-fluid levels are located within both small and large bowel. Small bowel loops are di lated up to 4.1 cm now versus 4.8 cm on 08/12/2023. 3. Known severe left common iliac artery aneurysm up to 7.1 cm.
[2023-08-16 11:42] LABS: Glucose,Whole Blood 159 mg/dL (70-110)
--- NOTE | 2023-08-16 13:43 | P.PN ---
Subjective Progress Note Date: 08/15/23 CHIEF COMPLAINT: Small bowel obstruction HISTORY OF PRESENT ILLNESS: Patient admitted to the hospital small bowel obstruction. Patient's NG tube was discontinued yesterday. He is tolerating clear liquids. Reports having bowel movements. Denies any abdominal pain. He has worked with physical therapy. Afebrile. PHYSICAL EXAM: VITAL SIGNS: Reviewed GENERAL: Well-developed in no acute distress. HEENT: No sclera icterus. Extraocular movements grossly intact. Moist buccal mucosa. Head is atraumatic, normocephalic. Hears conversational speech. No nasal drainage. NECK: Supple without lymphadenopathy. CHEST: Non-labored respirations and equal bilateral excursions. CARDIOVASCULAR: Palpable 2+ radial pulses. ABDOMEN: Soft. Nondistended. Nontender. MUSCULOSKELETAL: No clubbing or cyanosis. NEUROLOGIC: No focal or lateralizing signs. Cranial nerves II through XII grossly intact. PSYCH: Appropriate affect. Alert and oriented to person, place and time. SKIN: Well perfused. Good skin turgor. ASSESSMENT: 1. Resolving small bowel obstruction 2. Abdominal aortic aneurysm 3. Kpf-fkqteef-zncdffdod diabetes mellitus 4. Hypomagnesemia 5. Hypokalemia 6. Hyponatremia PLAN: -Advance diet to full liquids. Then advance diet to low fiber for dinner -Continue to monitor Physician Director Zone note has been reviewed by physician. Signing provider agrees with the documented findings, assessment, and plan of care. Objective - Vital Signs Vital signs: Vital Signs Temp 98.1 F 08/16/23 07:00 Pulse 72 08/16/23 07:00 Resp 18 08/16/23 07:00 BP 132/74 08/16/23 07:00 Pulse Ox 93 L 08/16/23 07:00 FiO2 Intake & Output 08/15/23 08/16/23 08/16/23 18:59 06:59 18:59 Weight 54.5 kg Other: Voiding Method Toilet Bedside Commode # Voids 2 2 # Bowel Movements 1 - Labs CBC & Chem 7: 08/14/23 06:11 08/15/23 19:48 Labs: Abnormal Lab Results - Last 24 Hours (Table) 08/15/23 08/15/23 08/16/23 Range/Units 16:41 19:55 06:02 POC Glucose (mg/dL) 274 H 124 H 157 H (70-110) mg/dL 08/16/23 Range/Units 11:41 POC Glucose (mg/dL) 159 H (70-110) mg/dL
--- NOTE | 2023-08-16 13:45 | P.PN ---
Subjective Progress Note Date: 08/16/23 CHIEF COMPLAINT: Small bowel obstruction HISTORY OF PRESENT ILLNESS: Patient admitted to the hospital small bowel obstruction. Patient is tolerating low fiber diet. Last bowel movement was yesterday. He is having flatus. Denies any nausea or vomiting. Denies any abdominal pain. Abdominal x-ray for this morning reports some increasing colonic air. Oral contrast is evacuated with some residual remaining in the left side of the colon. Scattered air-fluid levels are located within the small and large bowel. Small bowel loops are dilated up to 4.1 cm versus the 4.8 cm. X-ray results and physical exam findings discussed with Dr. Mederos. Potassium improved up to 4.2. Patient received magnesium supplement. Sodium is 131 PHYSICAL EXAM: VITAL SIGNS: Reviewed GENERAL: Well-developed in no acute distress. HEENT: No sclera icterus. Extraocular movements grossly intact. Moist buccal mucosa. Head is atraumatic, normocephalic. Hears conversational speech. No nasal drainage. NECK: Supple without lymphadenopathy. CHEST: Non-labored respirations and equal bilateral excursions. CARDIOVASCULAR: Palpable 2+ radial pulses. ABDOMEN: Soft. Nondistended. Nontender. MUSCULOSKELETAL: No clubbing or cyanosis. NEUROLOGIC: No focal or lateralizing signs. Cranial nerves II through XII grossly intact. PSYCH: Appropriate affect. Alert and oriented to person, place and time. SKIN: Well perfused. Good skin turgor. ASSESSMENT: 1. Resolving small bowel obstruction 2. Abdominal aortic aneurysm 3. Qcl-hynhlfe-kbripswsq diabetes mellitus 4. Hypomagnesemia 5. Hypokalemia improved 6. Hyponatremia improved PLAN: -Patient can be discharged from surgical standpoint -Continue low fiber diet Physician Airplane Electrician note has been reviewed by physician. Signing provider agrees with the documented findings, assessment, and plan of care. Objective - Vital Signs Vital signs: Vital Signs Temp 98.1 F 08/16/23 07:00 Pulse 72 08/16/23 07:00 Resp 18 08/16/23 07:00 BP 132/74 08/16/23 07:00 Pulse Ox 93 L 08/16/23 07:00 FiO2 Intake & Output 08/15/23 08/16/23 08/16/23 18:59 06:59 18:59 Weight 54.5 kg Other: Voiding Method Toilet Bedside Commode # Voids 2 2 # Bowel Movements 1 - Labs CBC & Chem 7: 08/14/23 06:11 08/15/23 19:48 Labs: Abnormal Lab Results - Last 24 Hours (Table) 08/15/23 08/15/23 08/16/23 Range/Units 16:41 19:55 06:02 POC Glucose (mg/dL) 274 H 124 H 157 H (70-110) mg/dL 08/16/23 Range/Units 11:41 POC Glucose (mg/dL) 159 H (70-110) mg/dL
--- NOTE | 2023-08-20 05:40 | P.DS ---
Providers Date of admission: 08/09/23 00:37 Expected date of discharge: 08/16/23 Attending physician: Micaela Light Consults: 08/09/23 00:35 Consult Physician Routine Consulting Provider: Gee Patel Consult Reason/Comments: iliac aneurysm Do you want consulting provider notified?: Yes Consult Physician Routine Consulting Provider: Yazan Haney Consult Reason/Comments: sinus pause vs. heart block Do you want consulting provider notified?: Yes 08/12/23 08:11 Consult Physician Routine Consulting Provider: Jayne Mederos Consult Reason/Comments: SBO Do you want consulting provider notified?: Already Contacted Primary care physician: [facility] Course: Final diagnosis Abdominal pain, likely secondary to small bowel obstruction, improved Aortoiliac aneurysmal disease, evaluated by vascular surgery recommending endovascular repair and patient has declined Sinus arrhythmia, ruled out high degree heart block Hypomagnesemia, hypokalemia being replaced per protocol, proved Diabetes mellitus, type II Mild protein calorie malnutrition with a BMI of 19.4 GI prophylaxis DVT prophylaxis Full code Discharge disposition Patient is being discharged in a stable condition with guarded prognosis to home. Patient will follow-up with Dr. Mooney in the outpatient setting upon discharge. Patient is to continue with close outpatient follow-up with general surgery as well as vascular surgery as scheduled. Total time taken is greater than 35 minutes. Hospital course This is a 83-year-old male who was recently admitted with abdominal pain with concerns of ileus versus obstruction being closely monitored. General surgery following patient was maintained on bowel rest and n.p.o. with NG tube showing some improvements. Patient noted to have extensive aortoiliac aneurysm and evaluated by vascular surgery and patient is declining any intervention at this time and will follow-up outpatient. Patient showing signs of improvement in bowel obstruction and is having bowel movements and NG tube has been removed tolerating diet. Patient to continue on low fiber diet for the next few days and close outpatient follow-up with general surgery as well as primary care provider. Patient has been cleared by consultations for discharge. Please refer to other consultation notes for further HPI. Recommend follow-up labs in the next few days as patient's potassium and magnesium was low and replaced. Improved on discharge. Currently no reports of chest pain, shortness of breath, or palpitations. Patient is afebrile. No reports of nausea or vomiting and patient is tolerating diet. Patient will be discharged home today. Guarded prognosis given patient's comorbidities and age with high risk for readmission. Physical exam: Gen: This is a 83-year-old male who is awake, alert and oriented x 3, well- developed, well-nourished, hard of hearing HEENT: Head is atraumatic, normocephalic. Pupils equal, round. Sclerae is anicteric. NECK: Supple. No JVD. No lymphadenopathy. No thyromegaly. LUNGS: Clear to auscultation. No wheezes or rhonchi. No intercostal retractions. HEART: Regular rate and rhythm. No murmur. ABDOMEN: Soft. Bowel sounds are present. No masses. No tenderness. EXTREMITIES: No pedal edema. No calf tenderness. NEUROLOGICAL: Patient is awake, alert and oriented x3. Cranial nerves 2 through 12 are grossly intact. Please refer to medication reconciliation sheet for a list of medications. The impression and plan of care has been dictated by Cony Mclean, Nurse Practitioner as directed. Dr. Klaus MD I have performed a history and examination and MDM of this patient, discussed the same with the dictator, and agree with the dictator's assessment and plan as written ,documented as a scribe. Based on total visit time, I have performed more than 50% of the visit. Patient Condition at Discharge: Fair Plan - Discharge Summary Discharge Rx Participant: No New Discharge Prescriptions: Continue metFORMIN HCL [Glucophage] 1,000 mg PO BID-W/MEALS Dorzolamide/Timolol/Pf [Dorzolamide 2%-Timolol 0.5%] 1 drop BOTH EYES BID Latanoprost [Latanoprost 0.005%] 1 drop BOTH EYES HS Multivitamins, Thera [Multivitamin (formulary)] 1 tab PO DAILY Discharge Medication List Dorzolamide/Timolol/Pf [Dorzolamide 2%-Timolol 0.5%] 1 drop BOTH EYES BID 04/02/22 [History] Latanoprost [Latanoprost 0.005%] 1 drop BOTH EYES HS 04/02/22 [History] metFORMIN HCL [Glucophage] 1,000 mg PO BID-W/MEALS 07/05/23 [History] Multivitamins, Thera [Multivitamin (formulary)] 1 tab PO DAILY 08/08/23 [History] Follow up Appointment(s)/Referral(s): oSnido Mooney MD [REFERRING] - 1-2 days Esteban Caldwell DO [STAFF PHYSICIAN] - 2 Weeks Jayne Mederos MD [STAFF PHYSICIAN] - As Needed Ambulatory/Diagnostic Orders: Basic Metabolic Panel [LAB.AMB] Time Frame: 3 Days, Location: None Selected Patient Instructions/Handouts: Low Fiber Diet (DC) Activity/Diet/Wound Care/Special Instructions: Activity limited until follow-up Follow-up with primary care provider on discharge Follow-up outpatient with vascular surgery Follow-up with general surgery as scheduled Continue a low fiber diet consistent carb and slowly advance as tolerated Discharge Disposition: HOME SELF-CARE
== END 2023-08-16 13:46 | disposition home or self-care (01) | DRG 389 ==
LOC: EC 18:27 → 3SCARD 08-09 00:37 → 4SSUR 08-11 18:50
PROVIDERS: ADMIT Hospitalist; ATTEND Hospitalist
PROC: 0D9670Z Drainage of Stomach with Drainage Device, Via Natural or Artificial Opening (ICD-10-PCS; principal; 2023-08-10)
DX: K56.609 Unspecified intestinal obstruction, unspecified as to partial versus complete obstruction (principal); E44.1 Mild protein-calorie malnutrition; E87.1 Hypo-osmolality and hyponatremia; Z68.1 Body mass index [BMI] 19.9 or less, adult; I72.3 Aneurysm of iliac artery; E11.9 Type 2 diabetes mellitus without complications; I71.40 Abdominal aortic aneurysm, without rupture, unspecified; E86.0 Dehydration; E87.6 Hypokalemia; H40.9 Unspecified glaucoma; K52.9 Noninfective gastroenteritis and colitis, unspecified; E83.42 Hypomagnesemia; H91.90 Unspecified hearing loss, unspecified ear; Z79.84 Long term (current) use of oral hypoglycemic drugs; Z79.899 Other long term (current) drug therapy; Z87.891 Personal history of nicotine dependence; Z71.3 Dietary counseling and surveillance
CPT/HCPCS: 36415; 74018; 74019; 74174; 74250; 80048; 80053; 81003; 82150; 83605; 83690; 83735; 84132; 84484; 85025; 93005; 93306; 96361; 96374; 99285

== ENCOUNTER 2024-04-15 17:27 | Inpatient (IN) | payer MEDICARE ==
--- NOTE | 2024-04-15 18:17 | ED ---
General Adult HPI - General Chief complaint: Fever Stated complaint: Fever, weakness, confusion Time Seen by Provider: 04/15/24 17:52 Source: patient, family, RN notes reviewed Mode of arrival: wheelchair Limitations: no limitations - History of Present Illness Initial comments: 83-year-old male presents to the emergency department with and daughter for evaluation of fever. Patient was evaluated at his primary care provider's office today and had a temperature of 101.4. He was given p.o. Tylenol at the office and was advised to come to the emergency department for further evaluation. Patient's reports that he has been weak and more confused than usual. Patient typically ambulates without assistive devices. Patient's states that today he has been unable to get around on his own. Admits to cough worse than usual. Denies any shortness of breath, chest pain. Denies congestion, sore throat. Patient's does report that she was sick recently with upper respiratory symptoms. - Related Data Home Medications Medication Instructions Recorded Confirmed Dorzolamide/Timolol/Pf 1 drop BOTH EYES BID 04/02/22 08/08/23 [Dorzolamide 2%-Timolol 0.5%] Latanoprost [Latanoprost 0.005%] 1 drop BOTH EYES HS 04/02/22 08/08/23 metFORMIN HCL [Glucophage] 1,000 mg PO BID-W/MEALS 07/05/23 08/08/23 Multivitamins, Thera [Multivitamin 1 tab PO DAILY 08/08/23 08/08/23 (formulary)] Allergies Allergy/AdvReac Type Severity Reaction Status Date / Time No Known Allergies Allergy Verified 04/15/24 17:35 Review of Systems ROS Statement: Those systems with pertinent positive or pertinent negative responses have been documented in the HPI. ROS Other: All systems not noted in ROS Statement are negative. Past Medical History Past Medical History: Diabetes Mellitus, Thyroid Disorder Additional Past Medical History / Comment(s): glaucoma aortic aneursym History of Any Multi-Drug Resistant Organisms: None Reported Past Surgical History: Back Surgery Past Anesthesia/Blood Transfusion Reactions: No Reported Reaction Past Psychological History: No Psychological Hx Reported Smoking Status: Former smoker Past Alcohol Use History: None Reported Past Drug Use History: None Reported General Exam Limitations: altered mental status General appearance: alert, in no apparent distress Head exam: Present: atraumatic, normocephalic, normal inspection Eye exam: Present: normal appearance, PERRL, EOMI. Absent: scleral icterus, conjunctival injection, periorbital swelling ENT exam: Present: mucous membranes dry Neck exam: Present: normal inspection. Absent: tenderness, meningismus, l ymphadenopathy Respiratory exam: Present: rhonchi. Absent: respiratory distress, wheezes, rales, stridor Cardiovascular Exam: Present: normal rhythm, tachycardia, normal heart sounds. Absent: systolic murmur, diastolic murmur, rubs, gallop, clicks GI/Abdominal exam: Present: soft. Absent: distended, tenderness, guarding, rebound, rigid Extremities exam: Present: normal inspection, full ROM, normal capillary refill. Absent: tenderness, pedal edema, joint swelling, calf tenderness Neurological exam: Present: alert, oriented X3 Psychiatric exam: Present: normal affect, normal mood Skin exam: Present: warm, dry, intact, normal color. Absent: rash Course Vital Signs 04/15/24 04/15/24 04/15/24 17:36 18:43 20:20 Temperature 98.9 F Pulse Rate 104 H 82 93 Respiratory 18 20 18 Rate Blood Pressure 168/89 143/78 144/92 O2 Sat by Pulse 95 96 Oximetry 04/15/24 04/15/24 21:22 23:32 Temperature Pulse Rate 107 H 106 H Respiratory 18 18 Rate Blood Pressure 154/108 154/108 O2 Sat by Pulse 96 96 Oximetry Medical Decision Making - Medical Decision Making Was pt. sent in by a medical professional or institution (, PA, MONKEY KEEPER, urgent care, hospital, or intermediate...) When possible be specific @ -Sent in by primary care provider Did you speak to anyone other than the patient for history (EMS, parent, family, police, friend...)? What history was obtained from this source @ -Patient's and daughter provided some history of this patient Did you review nursing and triage notes (agree or disagree)? Why? @ -I reviewed and agree with nursing and triage notes Were old charts reviewed (outside hosp., previous admission, EMS record, old EKG, old radiological studies, urgent care reports/EKG's, intermediate records)? Report findings @ -No old charts were reviewed Differential Diagnosis (chest pain, altered mental status, abdominal pain women, abdominal pain men, vaginal bleeding, weakness, fever, dyspnea, syncope, headache, dizziness, GI bleed, back pain, seizure, CVA, palpatations, mental health, musculoskeletal)? @ -Differential Fever: Pneumonia, viral URI, endocarditis, myocarditis, pericarditis, otitis, sinusitis, peritonsillar Abscess, retropharyngeal Abscess, epiglottitis, peritonitis, appendicitis, Lois cystitis, diverticulitis, hepatitis, colitis, UTI, PID, TOA, pyelonephritis, prostatitis, epididymitis, meningitis, encephalitis, pulmonary embolism, CVA, thyroid storm, pancreatitis, adrenal crisis, cavernous sinus thrombosis, this is not meant to be an all-inclusive list. EKG interpreted by me (3pts min.). @ -EKG at 1844 show sinus rhythm for screening back rate of 93, IN 222, QRS 197, QT/QTc 3 354 6 X-rays interpreted by me (1pt min.). @ -Chest x-ray shows multifocal airspace opacities CT interpreted by me (1pt min.). @ -None done U/S interpreted by me (1pt. min.). @ -None done What testing was considered but not performed or refused? (CT, X-rays, U/S, labs)? Why? @ -None What meds were considered but not given or refused? Why? @ -None Did you discuss the management of the patient with other professionals (cristal crespo i.e. , PA, MONKEY KEEPER, lab, RT, psych nurse, social services analyst, office system analyst, teacher, real estate loan officer, director of casework)? Give summary @ -Case discussed with Dr. Arteaga who is accepting of the admission Was smoking cessation discussed for >3mins.? @ -No Was critical care preformed (if so, how long)? @ -No Were there social determinants of health that impacted care today? How? (Homelessness, low income, unemployed, alcoholism, drug addiction, transportation, low edu. Level, literacy, decrease access to med. care, half-way, rehab)? @ -No Was there de-escalation of care discussed even if they declined (Discuss DNR or withdrawal of care, Hospice)? DNR status @ -No What co-morbidities impacted this encounter? (DM, HTN, Smoking, COPD, CAD, Cancer, CVA, ARF, Chemo, Hep., AIDS, mental health diagnosis, sleep apnea, morbid obesity)? @ -None Was patient admitted / discharged? Hospital course, mention meds given and route, prescriptions, significant lab abnormalities, going to OR and other pertinent info. @ -Admitted. Patient presented to the emergency department for evaluation of fever, cough. Family also admits to increased weakness, patient is not able to ambulate without assistance when he normally can. Patient underwent laboratory studiesCBC significant for mild anemia with a hemoglobin of 12.1 which is stable for the patient; normal coagulation studies; patient is mildly hyponatremic with a sodium of 130, patient was provided 1 L normal saline and maintenance fluids while in the ED. UA obtained reveals no evidence of infectious process. Patient tested positive for COVID-19. Chest x-ray obtained reveals multifocal infiltrates. Patient will be admitted to the hospital for further management as the patient is demonstrating weakness and confusion. Case was discussed with Dr. Arteaga who is accepting of the admission. Case discussed with Dr. Hansen Undiagnosed new problem with uncertain prognosis? @ -No Drug Therapy requiring intensive monitoring for toxicity (Heparin, Nitro, I nsulin, Cardizem)? @ -No Were any procedures done? @ -No Diagnosis/symptom? @ -COVID, pneumonia Acute, or Chronic, or Acute on Chronic? @ -Acute Uncomplicated (without systemic symptoms) or Complicated (systemic symptoms)? @ -Complicated Side effects of treatment? @ -No Exacerbation, Progression, or Severe Exacerbation? @ -No Poses a threat to life or bodily function? How? (Chest pain, [place], HI, pneumonia, PE, COPD, DKA, ARF, appy, cholecystitis, CVA, Diverticulitis, Homicidal, Suicidal, threat to staff... and all critical care pts) @ -No - Lab Data Result diagrams: 04/15/24 23:12 04/15/24 18:42 Lab Results 04/15/24 04/15/24 04/15/24 Range/Units 18:42 18:42 18:42 WBC 6.1 (3.8-10.6) k/uL RBC 3.96 L (4.30-5.90) m/uL Hgb 12.1 L (13.0-17.5) gm/dL Hct 35.9 L (39.0-53.0) % MCV 90.7 (80.0-100.0) fL MCH 30.4 (25.0-35.0) pg MCHC 33.6 (31.0-37.0) g/dL RDW 13.4 (11.5-15.5) % Plt Count 143 L (150-450) k/uL MPV 6.8 Neutrophils % 72 % Lymphocytes % 11 % Monocytes % 10 % Eosinophils % 5 % Basophils % 0 % Neutrophils # 4.4 (1.3-7.7) k/uL Lymphocytes # 0.7 L (1.0-4.8) k/uL Monocytes # 0.6 (0-1.0) k/uL Eosinophils # 0.3 (0-0.7) k/uL Basophils # 0.0 (0-0.2) k/uL PT (10.0-12.5) sec INR (<1.2) APTT (22.0-30.0) sec Sodium 130 L (137-145) mmol/L Potassium 4.4 (3.5-5.1) mmol/L Chloride 102 (98-107) mmol/L Carbon Dioxide 22 (22-30) mmol/L Anion Gap 6 mmol/L BUN 22 H (9-20) mg/dL Creatinine 0.83 (0.66-1.25) mg/dL Est GFR (CKD-EPI)AfAm >90 (>60 ml/min/1.73 sqM) Est GFR (CKD-EPI)NonAf 81 (>60 ml/min/1.73 sqM) Glucose 164 H (74-99) mg/dL POC Glucose (mg/dL) (70-110) mg/dL POC Glu Cio ID Plasma Lactic Acid Julio Cesar 1.4 (0.7-2.0) mmol/L Calcium 8.5 (8.4-10.2) mg/dL Total Bilirubin 1.0 (0.2-1.3) mg/dL AST 23 (17-59) U/L ALT 14 (4-49) U/L Alkaline Phosphatase 78 (38-126) U/L Total Protein 6.8 (6.3-8.2) g/dL Albumin 3.9 (3.5-5.0) g/dL TSH 1.620 (0.465-4.680) mIU/L Urine Color Urine Appearance (Clear) Urine pH (5.0-8.0) Ur Specific Bob White (1.001-1.035) Urine Protein (Negative) Urine Glucose (UA) (Negative) Urine Ketones (Negative) Urine Blood (Negative) Urine Nitrite (Negative) Urine Bilirubin (Negative) Urine Urobilinogen (<2.0) mg/dL Ur Leukocyte Esterase (Negative) Influenza Type A (PCR) (Not Detectd) Influenza Type B (PCR) (Not Detectd) RSV (PCR) (Not Detectd) SARS-CoV-2 (PCR) (Not Detectd) 04/15/24 04/15/24 04/15/24 Range/Units 18:42 18:42 19:06 WBC (3.8-10.6) k/uL RBC (4.30-5.90) m/uL Hgb (13.0-17.5) gm/dL Hct (39.0-53.0) % MCV (80.0-100.0) fL MCH (25.0-35.0) pg MCHC (31.0-37.0) g/dL RDW (11.5-15.5) % Plt Count (150-450) k/uL MPV Neutrophils % % Lymphocytes % % Monocytes % % Eosinophils % % Basophils % % Neutrophils # (1.3-7.7) k/uL Lymphocytes # (1.0-4.8) k/uL Monocytes # (0-1.0) k/uL Eosinophils # (0-0.7) k/uL Basophils # (0-0.2) k/uL PT 11.6 (10.0-12.5) sec INR 1.1 (<1.2) APTT 28.9 (22.0-30.0) sec Sodium (137-145) mmol/L Potassium (3.5-5.1) mmol/L Chloride (98-107) mmol/L Carbon Dioxide (22-30) mmol/L Anion Gap mmol/L BUN (9-20) mg/dL Creatinine (0.66-1.25) mg/dL Est GFR (CKD-EPI)AfAm (>60 ml/min/1.73 sqM) Est GFR (CKD-EPI)NonAf (>60 ml/min/1.73 sqM) Glucose (74-99) mg/dL POC Glucose (mg/dL) 161 H (70-110) mg/dL POC Glu Cio ID Burgess Ibrahim Plasma Lactic Acid Julio Cesar (0.7-2.0) mmol/L Calcium (8.4-10.2) mg/dL Total Bilirubin (0.2-1.3) mg/dL AST (17-59) U/L ALT (4-49) U/L Alkaline Phosphatase (38-126) U/L Total Protein (6.3-8.2) g/dL Albumin (3.5-5.0) g/dL TSH (0.465-4.680) mIU/L Urine Color Urine Appearance (Clear) Urine pH (5.0-8.0) Ur Specific Bob White (1.001-1.035) Urine Protein (Negative) Urine Glucose (UA) (Negative) Urine Ketones (Negative) Urine Blood (Negative) Urine Nitrite (Negative) Urine Bilirubin (Negative) Urine Urobilinogen (<2.0) mg/dL Ur Leukocyte Esterase (Negative) Influenza Type A (PCR) Not Detected (Not Detectd) Influenza Type B (PCR) Not Detected (Not Detectd) RSV (PCR) Not Detected (Not Detectd) SARS-CoV-2 (PCR) Detected A (Not Detectd) 04/15/24 04/15/24 Range/Units 21:26 23:12 WBC 6.2 (3.8-10.6) k/uL RBC 3.85 L (4.30-5.90) m/uL Hgb 10.2 L (13.0-17.5) gm/dL Hct 34.3 L (39.0-53.0) % MCV 89.1 (80.0-100.0) fL MCH 26.5 (25.0-35.0) pg MCHC 29.7 L (31.0-37.0) g/dL RDW 13.7 (11.5-15.5) % Plt Count 138 L (150-450) k/uL MPV 7.5 Neutrophils % 72 % Lymphocytes % 14 % Monocytes % 8 % Eosinophils % 5 % Basophils % 0 % Neutrophils # 4.5 (1.3-7.7) k/uL Lymphocytes # 0.9 L (1.0-4.8) k/uL Monocytes # 0.5 (0-1.0) k/uL Eosinophils # 0.3 (0-0.7) k/uL Basophils # 0.0 (0-0.2) k/uL PT (10.0-12.5) sec INR (<1.2) APTT (22.0-30.0) sec Sodium (137-145) mmol/L Potassium (3.5-5.1) mmol/L Chloride (98-107) mmol/L Carbon Dioxide (22-30) mmol/L Anion Gap mmol/L BUN (9-20) mg/dL Creatinine (0.66-1.25) mg/dL Est GFR (CKD-EPI)AfAm (>60 ml/min/1.73 sqM) Est GFR (CKD-EPI)NonAf (>60 ml/min/1.73 sqM) Glucose (74-99) mg/dL POC Glucose (mg/dL) (70-110) mg/dL POC Glu Cio ID Plasma Lactic Acid Julio Cesar (0.7-2.0) mmol/L Calcium (8.4-10.2) mg/dL Total Bilirubin (0.2-1.3) mg/dL AST (17-59) U/L ALT (4-49) U/L Alkaline Phosphatase (38-126) U/L Total Protein (6.3-8.2) g/dL Albumin (3.5-5.0) g/dL TSH (0.465-4.680) mIU/L Urine Color Colorless Urine Appearance Clear (Clear) Urine pH 7.5 (5.0-8.0) Ur Specific Bob White 1.012 (1.001-1.035) Urine Protein Trace H (Negative) Urine Glucose (UA) Trace H (Negative) Urine Ketones Negative (Negative) Urine Blood Negative (Negative) Urine Nitrite Negative (Negative) Urine Bilirubin Negative (Negative) Urine Urobilinogen <2.0 (<2.0) mg/dL Ur Leukocyte Esterase Negative (Negative) Influenza Type A (PCR) (Not Detectd) Influenza Type B (PCR) (Not Detectd) RSV (PCR) (Not Detectd) SARS-CoV-2 (PCR) (Not Detectd) Disposition Clinical Impression: COVID, Generalized weakness Disposition: ADMITTED IP TO THIS HOSP Condition: Stable Is patient prescribed a controlled substance at d/c from ED?: No Referrals: Drake Ordoñez MD [Primary Care Provider] - 1-2 days
[2024-04-15] MEDS: SODIUM CHLORIDE 0.9% 1,000 ML IV STA (18:57)
[2024-04-15 19:08] LABS: Glucose,Whole Blood 161 mg/dL (70-110)
[2024-04-15 19:10] LABS: Basophils % (A) 0 %; Eosinophils # (A) 0.3 k/uL (0-0.7); Eosinophils % (A) 5 %; HCT 35.9 % (39.0-53.0); HGB 12.1 gm/dL (13.0-17.5); Lymphocytes # (A) 0.7 k/uL (1.0-4.8); Lymphocytes % (A) 11 %; MCH 30.4 pg (25.0-35.0); MCHC 33.6 g/dL (31.0-37.0); MCV 90.7 fL (80.0-100.0); Mean Platelet Volume 6.8; Monocytes # (A) 0.6 k/uL (0-1.0); Monocytes % (A) 10 %; Neutrophils # (A) 4.4 k/uL (1.3-7.7); Neutrophils % (A) 72 %; Platelet Count 143 k/uL (150-450); RBC 3.96 m/uL (4.30-5.90); RDW 13.4 % (11.5-15.5); WBC 6.1 k/uL (3.8-10.6)
[2024-04-15 19:18] LABS: ALT 14 U/L (4-49); AST 23 U/L (17-59); African American GFR (CKD) >90 (>60 ml/min/1.73 sqM); Albumin 3.9 g/dL (3.5-5.0); Alkaline Phosphatase 78 U/L (38-126); Anion Gap 6 mmol/L; Blood Urea Nitrogen 22 mg/dL (9-20); Calcium 8.5 mg/dL (8.4-10.2); Carbon Dioxide 22 mmol/L (22-30); Chloride 102 mmol/L (98-107); Glucose 164 mg/dL (74-99); Non-African American GFR(CKD) 81 (>60 ml/min/1.73 sqM); Potassium 4.4 mmol/L (3.5-5.1); Sodium 130 mmol/L (137-145); Total Protein 6.8 g/dL (6.3-8.2)
[2024-04-15 19:29] LABS: INR 1.1 (<1.2); Partial Thromboplastin Time 28.9 sec (22.0-30.0); Prothrombin Time 11.6 sec (10.0-12.5)
--- NOTE | 2024-04-15 19:39 | XR ---
EXAMINATION TYPE: XR chest 2V DATE OF EXAM: 04/15/2024 7:36 PM COMPARISON: Chest radiographs from 08/11/2023 CLINICAL INDICATION: Male, 83 years old with history of cough, fever; H TECHNIQUE: XR chest 2V Frontal and lateral views of the chest. FINDINGS: Lungs/Pleura: There is no evidence of pleural effusion, focal consolidation, or pneumothorax. Pulmonary vascularity: Unremarkable. Heart/mediastinum: Cardiomediastinal silhouette is unremarkable. Musculoskeletal: No acute osseous pathology. IMPRESSION: Multifocal airspace opacities concerning for pneumonia. [facility], , 04/15/2024 7:37 PM
[2024-04-15] MEDS ORDERED: ACETAMINOPHEN TAB 325 MG TAB PO PRN (21:08)
[2024-04-15] MEDS ORDERED: NALOXONE 0.4 MG/ML 1 ML VIAL IV PRN (21:08)
[2024-04-15] MEDS ORDERED: IBUPROFEN 400 MG TAB PO PRN (21:08)
[2024-04-15] MEDS: dexAMETHasone 2 MG TAB PO STA (21:22)
[2024-04-15] MEDS: SODIUM CHLORIDE 0.9% 1,000 ML IV SCH (21:22)
[2024-04-15 21:39] LABS: Appearance,Urine Clear (Clear); Bilirubin,Urine Negative (Negative); Blood,Urine Negative (Negative); Color,Urine Colorless; Glucose,Urine (UA) Trace (Negative); Ketones,Urine Negative (Negative); Leukocyte Esterase,Urine Negative (Negative); Nitrite,Urine Negative (Negative); PH, Urine 7.5 (5.0-8.0); Protein,Urine Trace (Negative); Specific Gravity,Urine 1.012 (1.001-1.035); Urobilinogen,Urine <2.0 mg/dL (<2.0)
--- NOTE | 2024-04-15 22:39 | P.HPIM ---
History of Present Illness H&P Date: 04/15/24 History of present illness; 83-year-old man with a past medical history significant for diabetes mellitus, glaucoma, aortoiliac aneurysmal disease, presented to the emergency department following a visit to his PCPs office which showed a temperature of 101.4. He was given p.o. Tylenol at the office and was advised to follow-up with the emergency department. The patient was accompanied by his and daughter, who reports that the patient has been more weak and more confused than usual. He typically ambulates without assistive device at home. His states that earlier today he was unable to get around on his own, and he states that usually he and his are able to go for walks together. He states he does still feel weak and has a persistent cough, the cough however he endorses having had for a prolonged period of time. He states the cough is productive for yellowish phlegm, however he states this is nothing new and there have been no changes to the productivity in recent days. However denies shortness of breath or chest pain. He denies congestion or sore throat. Per the patient's , she herself was sick noting that she had upper respiratory symptoms. He states that he was feeling very weak and tired earlier this morning, however feels as though he feels what he considers to be much better currently. Initial lab work done in the ER showed WBCs 6.1, Hgb 12.1, hct 35.9, MCV 90.7, PLT 143; sodium 130, potassium 4.4, BUN 22, BUN 0.83, glucose 164 Respiratory viral panel positive for COVID-19 Chest x-ray done in the ER showed multifocal airspace opacities concerning for pneumonia Patient admitted to internal medicine service REVIEW OF SYSTEMS: CONSTITUTIONAL: Noted fever and increasing fatigue HEENT: No recent visual problems or hearing problems. Denied any sore throat. CARDIOVASCULAR: No chest pain, orthopnea, PND, no palpitations, no syncope. PULMONARY: No shortness of breath, no hemoptysis. Notes a persistent, productive cough, although he does not note much of a change from what he usually has. GASTROINTESTINAL: No diarrhea, no nausea, no vomiting, no abdominal pain. NEUROLOGICAL: No headaches, no weakness, no numbness. HEMATOLOGICAL: Denies any bleeding or petechiae. GENITOURINARY: Denies any burning micturition, frequency, or urgency. MUSCULOSKELETAL/RHEUMATOLOGICAL: Denies any joint pain, swelling, or any muscle pain. ENDOCRINE: Denies any polyuria or polydipsia. The rest of the 14-point review of systems is negative. PHYSICAL EXAMINATION: GENERAL: The patient is alert and oriented x2, not in any acute distress. Well developed, thin appearing. Hard of hearing. HEENT: No scleral icterus. No conjunctival pallor. Normocephalic, atraumatic. CARDIOVASCULAR: S1 and S2 present. No murmurs, rubs, or gallops. PULMONARY: Chest is clear to auscultation, no wheezing or crackles. Diminished breath sounds heard throughout. ABDOMEN: Soft, nontender, nondistended, normoactive bowel sounds. No palpable organomegaly. MUSCULOSKELETAL: No joint swelling or deformity. EXTREMITIES: No cyanosis, clubbing, or pedal edema. NEUROLOGICAL: Gross neurological examination did not reveal any focal deficits. SKIN: No rashes. Assessment and plan 83-year-old man with a past medical history significant for diabetes mellitus, glaucoma, aortoiliac aneurysmal disease, presented to the emergency department following a visit to his PCP's office for increasing weakness and worsening fatigue where he had a temperature of 101.4, for further evaluation. #COVID-19 infection with possible COVID-pneumonia - Respiratory viral panel positive for COVID-19; chest x-ray completed in the emergency department showed multifocal air space opacities concerning for possible pneumonia - Patient was febrile at his PCPs office and was given p.o. Tylenol, afebrile on arrival - Given dexamethasone 6 mg p.o. once in the ED - Patient currently saturating 96% on room air - Continue to monitor patient's oxygen saturation, utilize supplemental O2 if required (SpO2 <88%) - Procalcitonin ordered currently pending - Urinalysis showed trace urine protein and urine glucose #Type 2 diabetes mellitus - Patient maintained at home on 1000 mg metformin twice daily - Glucose on arrival today 164 - Monitor with Accu-Cheks - Ordered low dose (<70kg) sliding scale #Glaucoma - Controlled at home with dorzolamide/timolol/PF 10 mm 1 drop both eyes twice daily - Controlled on with latanoprost 2.5 mL 1 drop both eyes nightly - Per the patient's she will be bringing his medications tomorrow morning #Chronic mild thrombocytopenia - PLT 143 on arrival today - Patient's platelets have ranged between 135-170 in 2023 - Continue to monitor with CBC #Chronic mild anemia - Hemoglobin on arrival 12.1 - Most recent Hgb prior to today 11.2, in 2023 ranging between 11.213.8 - Transfusion protocol if hemoglobin drops below 7 #Hyponatremia - On arrival patient sodium 130 - Currently receiving normal saline 75 cc/h - Continue to monitor BMP GI prohylaxis: No obvious indication noted DVT prophylaxis: Lovenox 40 mg daily Continue to monitor vital signs, monitor CBC, monitor BMP Continue with symptomatic treatment Resume home medication Further condition as per the clinical course of the patient Dictation was produced using [employer] dictation software. please excuse any grammatical, word or spelling errors. Past Medical History Past Medical History: Diabetes Mellitus, Thyroid Disorder Additional Past Medical History / Comment(s): glaucoma aortic aneursym History of Any Multi-Drug Resistant Organisms: None Reported Past Surgical History: Back Surgery Past Anesthesia/Blood Transfusion Reactions: No Reported Reaction Past Psychological History: No Psychological Hx Reported Smoking Status: Former smoker Past Alcohol Use History: None Reported Past Drug Use History: None Reported Medications and Allergies Home Medications Medication Instructions Recorded Confirmed Type Dorzolamide/Timolol/Pf 1 drop BOTH EYES BID 04/02/22 08/08/23 History [Dorzolamide 2%-Timolol 0.5%] Latanoprost [Latanoprost 0.005%] 1 drop BOTH EYES HS 04/02/22 08/08/23 History metFORMIN HCL [Glucophage] 1,000 mg PO BID-W/MEALS 07/05/23 08/08/23 History Multivitamins, Thera [Multivitamin 1 tab PO DAILY 08/08/23 08/08/23 History (formulary)] Allergies Allergy/AdvReac Type Severity Reaction Status Date / Time No Known Allergies Allergy Verified 04/15/24 17:35 Physical Exam Vitals: Vital Signs Temp Pulse Resp BP Pulse Ox 04/15/24 21:22 107 H 18 154/108 96 04/15/24 20:20 93 18 144/92 96 04/15/24 18:43 82 20 143/78 95 04/15/24 17:36 98.9 F 104 H 18 168/89 Intake and Output 04/15/24 04/15/2424 06:59 14:59 22:59 Other: Weight 61.235 kg Results CBC & Chem 7: 04/15/24 23:12 04/15/24 23:12 Labs: Abnormal Lab Results - Last 24 Hours (Table) 04/15/24 04/15/24 04/15/24 Range/Units 18:42 18:42 18:42 RBC 3.96 L (4.30-5.90) m/uL Hgb 12.1 L (13.0-17.5) gm/dL Hct 35.9 L (39.0-53.0) % Plt Count 143 L (150-450) k/uL Lymphocytes # 0.7 L (1.0-4.8) k/uL Sodium 130 L (137-145) mmol/L BUN 22 H (9-20) mg/dL Glucose 164 H (74-99) mg/dL POC Glucose (mg/dL) (70-110) mg/dL Urine Protein (Negative) Urine Glucose (UA) (Negative) SARS-CoV-2 (PCR) Detected A (Not Detectd) 04/15/24 04/15/24 Range/Units 19:06 21:26 RBC (4.30-5.90) m/uL Hgb (13.0-17.5) gm/dL Hct (39.0-53.0) % Plt Count (150-450) k/uL Lymphocytes # (1.0-4.8) k/uL Sodium (137-145) mmol/L BUN (9-20) mg/dL Glucose (74-99) mg/dL POC Glucose (mg/dL) 161 H (70-110) mg/dL Urine Protein Trace H (Negative) Urine Glucose (UA) Trace H (Negative) SARS-CoV-2 (PCR) (Not Detectd)
[2024-04-15] MEDS: MORPHINE SULFATE 4 MG/ML SYRINGE IV PRN (23:21)
[2024-04-15 23:32] LABS: Basophils % (A) 0 %; Eosinophils # (A) 0.3 k/uL (0-0.7); Eosinophils % (A) 5 %; HCT 34.3 % (39.0-53.0); HGB 10.2 gm/dL (13.0-17.5); Lymphocytes # (A) 0.9 k/uL (1.0-4.8); Lymphocytes % (A) 14 %; MCH 26.5 pg (25.0-35.0); MCHC 29.7 g/dL (31.0-37.0); MCV 89.1 fL (80.0-100.0); Mean Platelet Volume 7.5; Monocytes # (A) 0.5 k/uL (0-1.0); Monocytes % (A) 8 %; Neutrophils # (A) 4.5 k/uL (1.3-7.7); Neutrophils % (A) 72 %; Platelet Count 138 k/uL (150-450); RBC 3.85 m/uL (4.30-5.90); RDW 13.7 % (11.5-15.5); WBC 6.2 k/uL (3.8-10.6)
[2024-04-16 00:06] LABS: African American GFR (CKD) >90 (>60 ml/min/1.73 sqM); Anion Gap 6 mmol/L; Blood Urea Nitrogen 17 mg/dL (9-20); Calcium 8.3 mg/dL (8.4-10.2); Carbon Dioxide 20 mmol/L (22-30); Chloride 104 mmol/L (98-107); Glucose 137 mg/dL (74-99); Non-African American GFR(CKD) 85 (>60 ml/min/1.73 sqM); Potassium 4.2 mmol/L (3.5-5.1); Sodium 130 mmol/L (137-145)
[2024-04-16 07:21] LABS: Basophils % (A) 0 %; Eosinophils % (A) 0 %; HCT 35.1 % (39.0-53.0); HGB 11.6 gm/dL (13.0-17.5); Lymphocytes # (A) 0.7 k/uL (1.0-4.8); Lymphocytes % (A) 16 %; MCH 30.6 pg (25.0-35.0); MCHC 33.2 g/dL (31.0-37.0); MCV 92.1 fL (80.0-100.0); Mean Platelet Volume 7.1; Monocytes # (A) 0.2 k/uL (0-1.0); Monocytes % (A) 4 %; Neutrophils # (A) 3.1 k/uL (1.3-7.7); Neutrophils % (A) 78 %; Platelet Count 123 k/uL (150-450); RBC 3.81 m/uL (4.30-5.90); RDW 13.4 % (11.5-15.5)
[2024-04-16 07:43] LABS: African American GFR (CKD) >90 (>60 ml/min/1.73 sqM); Anion Gap 11 mmol/L; Blood Urea Nitrogen 16 mg/dL (9-20); Calcium 8.5 mg/dL (8.4-10.2); Carbon Dioxide 19 mmol/L (22-30); Chloride 102 mmol/L (98-107); Glucose 186 mg/dL (74-99); Non-African American GFR(CKD) 87 (>60 ml/min/1.73 sqM); Potassium 4.4 mmol/L (3.5-5.1); Sodium 132 mmol/L (137-145)
[2024-04-16 08:17] VITALS: RESP 18
[2024-04-16] MEDS: INSULIN ASPART (NovoLOG) 100 UNIT/ML VIAL SQ SCH (08:36)
[2024-04-16] MEDS: ENOXAPARIN 40 MG/0.4 ML SYRINGE SQ SCH (08:37)
[2024-04-16] MEDS: DEXAMETHASONE SOD PHOSPHATE 10 MG/ML 1 ML VIAL IVP SCH (10:01)
[2024-04-16 12:20] LABS: Glucose,Whole Blood 228 mg/dL (70-110)
--- NOTE | 2024-04-16 15:32 | P.PN ---
Subjective Progress Note Date: 04/16/24 Subjective: Patient seen and examined at the bedside. Patient continues to endorse weakness while getting up walking around. Denies any dizziness. Otherwise not complaining of any shortness of breath and has chronic persistent mild productive cough with clear sputum. All Systems reviewed and pertinent positives and negatives noted in HPI, all other symptoms are negative Objective: Vital signs reviewed. General: non toxic, no distress, appears at stated age, normal weight Derm: no unusual rashes/lesions, warm Head: atraumatic, normocephalic, symmetric Eyes: EOMI, no lid lag, anicteric sclera, pupils equal round reactive to light ENT: Nose and ears atraumatic Neck: No cervical lymphadenopathy, trachea midline, supple Mouth: no lip lesion, mucus membranes moist Cardiovascular: S1S2 reg, no murmur, positive dorsalis pedis pulse bilateral, no edema Lungs: CTA bilateral, no rhonchi, no rales, no accessory muscle use Abdominal: soft, nontender to palpation, no guarding Ext: muscle strength 5 out of 5 in all 4 extremities grossly, no gross muscle atrophy, no contractures, left foot drop with decreased sensation below the left ankle Neuro: CN II-XI grossly intact, no gross focal neuro deficits Psych: Alert, oriented, appropriate affect Data reviewed today: Labs: WBC 4.0, globin 11.6, > 1.3, sodium 132, potassium 4.4, chloride 102, bicarb 19, BUN 16, creatinine 0.69, glucose 186, Images: No new imaging Assessment and Plan: 83-year-old man with a past medical history significant for diabetes mellitus, glaucoma, aortoiliac aneurysmal disease, presented to the emergency department following a visit to his PCP's office for increasing weakness and worsening fatigue where he had a temperature of 101.4, for further evaluation. #COVID-19 infection with possible COVID-pneumonia #Generalized weakness - Respiratory viral panel positive for COVID-19; chest x-ray showed multifocal air space opacities concerning for possible pneumonia -Continue with IV dexamethasone 6 mg daily - Continue to monitor patient's oxygen saturation, utilize supplemental O2 if required (SpO2 <88%) - Procalcitonin 0.09 - Urinalysis showed trace urine protein and urine glucose PT/OT on board #Type 2 diabetes mellitus Hold hold oral medications Accu-Cheks and sliding scale insulin Continue monitor for hypoglycemia #Left foot drop Chronic Patient uses brace at home for walk Outpatient follow-up #Glaucoma - Controlled at home with dorzolamide/timolol/PF 10 mm 1 drop both eyes twice daily - Controlled on with latanoprost 2.5 mL 1 drop both eyes nightly - Per the patient's she will be bringing his medications tomorrow morning #Chronic mild thrombocytopenia - PLT 143 on arrival today - Patient's platelets have ranged between 135-170 in 2023 - Continue to monitor with CBC #Chronic mild anemia - Hemoglobin on arrival 12.1 - Most recent Hgb prior to today 11.2, in 2023 ranging between 11.213.8 - Transfusion protocol if hemoglobin drops below 7 #Hyponatremia - On arrival patient sodium 130 - Currently receiving normal saline 75 cc/h - Continue to monitor BMP F: Fluid as above E: Replete as needed N: Consistent carbohydrate diet A: Ambulatory without assist at baseline GI prohylaxis: No obvious indication noted DVT prophylaxis: Lovenox 40 mg daily Code Status: Not indicated Anticipated discharge place: Home versus subacute rehab Anticipated discharge date: PT assessment pending I have seen and evaluated the patient today. Discussed with the resident and a gree with the residents finding and plan as documented in the resident's note. Changes highlighted in blue font. Objective - Vital Signs Vital signs: Vital Signs Temp 98.5 F 04/16/24 14:03 Pulse 85 04/16/24 14:03 Resp 18 04/16/24 14:03 BP 141/87 04/16/24 14:03 Pulse Ox 95 04/16/24 14:03 FiO2 Intake & Output 04/15/24 04/16/24 04/16/24 18:59 06:59 18:59 Weight 61.235 kg - Labs CBC & Chem 7: 04/16/24 07:07 04/16/24 07:07 Labs: Abnormal Lab Results - Last 24 Hours (Table) 04/15/24 04/15/24 04/15/24 Range/Units 18:42 18:42 18:42 RBC 3.96 L (4.30-5.90) m/uL Hgb 12.1 L (13.0-17.5) gm/dL Hct 35.9 L (39.0-53.0) % MCHC (31.0-37.0) g/dL Plt Count 143 L (150-450) k/uL Lymphocytes # 0.7 L (1.0-4.8) k/uL Sodium 130 L (137-145) mmol/L Carbon Dioxide (22-30) mmol/L BUN 22 H (9-20) mg/dL Glucose 164 H (74-99) mg/dL POC Glucose (mg/dL) (70-110) mg/dL Calcium (8.4-10.2) mg/dL Urine Protein (Negative) Urine Glucose (UA) (Negative) SARS-CoV-2 (PCR) Detected A (Not Detectd) 04/15/24 04/15/24 04/15/24 Range/Units 19:06 21:26 23:12 RBC 3.85 L (4.30-5.90) m/uL Hgb 10.2 L (13.0-17.5) gm/dL Hct 34.3 L (39.0-53.0) % MCHC 29.7 L (31.0-37.0) g/dL Plt Count 138 L (150-450) k/uL Lymphocytes # 0.9 L (1.0-4.8) k/uL Sodium (137-145) mmol/L Carbon Dioxide (22-30) mmol/L BUN (9-20) mg/dL Glucose (74-99) mg/dL POC Glucose (mg/dL) 161 H (70-110) mg/dL Calcium (8.4-10.2) mg/dL Urine Protein Trace H (Negative) Urine Glucose (UA) Trace H (Negative) SARS-CoV-2 (PCR) (Not Detectd) 04/15/24 04/16/24 04/16/24 Range/Units 23:12 07:07 07:07 RBC 3.81 L (4.30-5.90) m/uL Hgb 11.6 L (13.0-17.5) gm/dL Hct 35.1 L (39.0-53.0) % MCHC (31.0-37.0) g/dL Plt Count 123 L (150-450) k/uL Lymphocytes # 0.7 L (1.0-4.8) k/uL Sodium 130 L 132 L (137-145) mmol/L Carbon Dioxide 20 L 19 L (22-30) mmol/L BUN (9-20) mg/dL Glucose 137 H 186 H (74-99) mg/dL POC Glucose (mg/dL) (70-110) mg/dL Calcium 8.3 L (8.4-10.2) mg/dL Urine Protein (Negative) Urine Glucose (UA) (Negative) SARS-CoV-2 (PCR) (Not Detectd) 04/16/24 Range/Units 12:18 RBC (4.30-5.90) m/uL Hgb (13.0-17.5) gm/dL Hct (39.0-53.0) % MCHC (31.0-37.0) g/dL Plt Count (150-450) k/uL Lymphocytes # (1.0-4.8) k/uL Sodium (137-145) mmol/L Carbon Dioxide (22-30) mmol/L BUN (9-20) mg/dL Glucose (74-99) mg/dL POC Glucose (mg/dL) 228 H (70-110) mg/dL Calcium (8.4-10.2) mg/dL Urine Protein (Negative) Urine Glucose (UA) (Negative) SARS-CoV-2 (PCR) (Not Detectd)
[2024-04-16 16:55] LABS: Glucose,Whole Blood 220 mg/dL (70-110)
[2024-04-16 21:48] LABS: Glucose,Whole Blood 263 mg/dL (70-110)
[2024-04-16] MEDS: DORZOLAMIDE-TIMOLOL 2.23%/0.68 10ML BTL BOTH EYES SCH (21:55)
[2024-04-16] MEDS: LATANOPROST 0.005% OPHTH DROPS 2.5 ML BTL BOTH EYES SCH (21:55)
[2024-04-17 06:55] LABS: Glucose,Whole Blood 136 mg/dL (70-110)
[2024-04-17] MEDS: LEVOTHYROXINE 50 MCG TAB PO SCH (06:59)
[2024-04-17 07:58] VITALS: BP 144/81; PULSE 68; TEMP 97.3
[2024-04-17 09:36] LABS: Blood Urea Nitrogen 28.4 mg/dL (9.0-27.0); Calcium 8.6 mg/dL (8.7-10.3); Carbon Dioxide 21.5 mmol/L (21.6-31.8); Chloride 101 mmol/L (96-109); Glucose 142 mg/dL (70-110); Potassium 4.4 mmol/L (3.5-5.5); Sodium 132 mmol/L (135-145)
[2024-04-17 09:43] LABS: Basophils # (A) 0.02 X 10*3/uL (0.00-0.10); Basophils % (A) 0.3 %; Eosinophils # (A) 0.01 X 10*3/uL (0.04-0.35); Eosinophils % (A) 0.2 %; HCT 32.5 % (39.6-50.0); Lymphocytes % (A) 22.8 %; MCHC 33.8 g/dL (32.0-37.0); MCV 88.6 FL (80.0-97.0); Mean Platelet Volume 9.7 FL (9.5-12.2); Monocytes # (A) 1.14 X 10*3/uL (0.20-1.00); Monocytes % (A) 17.3 %; NRBC Per 100 WBC 0 X 10*3/uL (0.00-0.01); Neutrophils # (A) 3.89 X 10*3/uL (1.80-7.70); Neutrophils % (A) 58.9 %; Platelet Count 129 X 10*3/uL (140-440); RBC 3.67 X 10*6/uL (4.40-5.60); RDW 13.5 % (11.5-14.5); WBC 6.59 X 10*3/uL (4.50-10.00)
[2024-04-17 11:34] LABS: Glucose,Whole Blood 202 mg/dL (70-110)
[2024-04-17] MEDS: polyethylene glycoL 3350 17 GM POWD.PACK PO STA (11:57)
--- NOTE | 2024-04-17 12:08 | P.DS ---
Providers Date of admission: 04/15/24 23:35 Expected date of discharge: 04/17/24 Attending physician: Romeo Arteaga MD Primary care physician: Drake Lynn [facility] Hospital Course: Discharge Diagnosis: #COVID-19 infection with COVID pneumonia, on room air #Acute encephalopathy #Generalized weakness #Type 2 diabetes mellitus #Left foot drop #Glaucoma #Chronic mild thrombocytopenia #Mild chronic anemia #Euvolemic hyponatremia Hospital Course: History of present illness; 83-year-old man with a past medical history significant for diabetes mellitus, glaucoma, aortoiliac aneurysmal disease, presented to the emergency department following a visit to his PCPs office which showed a temperature of 101.4. Initial lab work done in the ER showed WBCs 6.1, Hgb 12.1, hct 35.9, MCV 90.7, PLT 143; sodium 130, potassium 4.4, BUN 22, BUN 0.83, glucose 164. Respiratory viral panel positive for COVID-19. Chest x-ray done in the ER showed multifocal airspace opacities concerning for pneumonia. Patient was admitted to the intermittent service for evaluation treatment of COVID-19 pneumonia. Patient was started on IV steroid Decadron and was initially put on 2 L of oxygen. His respiratory status improved with no oxygen therapy needed. Patient not complaining of any shortness of breath with no worsening cough or sputum production. Vital signs stable. Physical therapy is on board to assess weakness. Patient is medically optimized to be discharged home with self-care. Patient to continue with Decadron for total course of 10 days. Discharge instruction: Patient to follow-up with PCP in 1 to 2 days Patient provided instruction on COVID-19 infection Vital signs reviewed. Gen: in no apparent distress, resting comfortably in bed Eyes: PERRL, no scleral injection or icterus HENT: normocephalic, atraumatic, good hearing acuity, moist mucous membranes Neck: full range of motion Resp: CTAB, no rales, rhonchi, or wheezes CVS: normal S1 and S2, no murmurs, rubs or gallops, no edema GI: soft, NTTP, ND, no hepatosplenomegaly : no suprapubic tenderness, no CVAT, garcia catheter is not present MSK: muscle strength 5 out of 5 in all 4 extremities grossly, no gross muscle atrophy, no contractures, left foot drop with decreased sensation below the left ankle Skin: no noted rashes, petechiae; temperature of skin is appropriate Neuro: moving all extremities without signs of weakness, CN II-XII intact Psych: cooperative, euthymic mood, insight and judgment intact A total of 36 minutes of time were spent preparing this complex discharge summary. Patient was discharged on 04/17/2024 at 1136. I have seen and evaluated the patient today. Discussed with the resident and agree with the residents finding and plan as documented in the resident's note. Changes highlighted in blue font. Patient Condition at Discharge: Stable Plan - Discharge Summary Discharge Rx Participant: No New Discharge Prescriptions: New dexAMETHasone [Decadron] 6 mg PO DAILY #8 tablet polyethylene glycoL 3350 [Miralax] 17 gm PO DAILY PRN #30 packet PRN Reason: Constipation Continue metFORMIN HCL [Glucophage] 1,000 mg PO BID-W/MEALS Dorzolamide/Timolol/Pf [Dorzolamide 2%-Timolol 0.5%] 1 drop BOTH EYES BID Latanoprost [Latanoprost 0.005%] 1 drop BOTH EYES HS Levothyroxine Sodium [Synthroid] 50 mcg PO AC-BRKFST Discharge Medication List Dorzolamide/Timolol/Pf [Dorzolamide 2%-Timolol 0.5%] 1 drop BOTH EYES BID 04/02/22 [History] Latanoprost [Latanoprost 0.005%] 1 drop BOTH EYES HS 04/02/22 [History] metFORMIN HCL [Glucophage] 1,000 mg PO BID-W/MEALS 07/05/23 [History] Levothyroxine Sodium [Synthroid] 50 mcg PO AC-BRKFST 04/16/24 [History] dexAMETHasone [Decadron] 6 mg PO DAILY #8 tablet 04/17/24 [Rx] polyethylene glycoL 3350 [Miralax] 17 gm PO DAILY PRN #30 packet 04/17/24 [Rx] Follow up Appointment(s)/Referral(s): Drake Ordoñez MD [Primary Care Provider] - 1-2 days (Office is not answering at time of discharge. Please call for follow-up appointment.) Patient Instructions/Handouts: COVID-19 (Coronavirus Disease 2019) (DC) Activity/Diet/Wound Care/Special Instructions: Please see your PCP. Discharge Disposition: HOME SELF-CARE
== END 2024-04-17 15:25 | disposition home or self-care (01) | DRG 177 ==
LOC: SUPCPDRO 17:27 → EC 17:27 → 4SSUR 23:35
PROVIDERS: ADMIT Internal Medicine; ATTEND Internal Medicine
DX: U07.1 COVID-19 (principal); J12.82 Pneumonia due to coronavirus disease 2019; E87.1 Hypo-osmolality and hyponatremia; E11.9 Type 2 diabetes mellitus without complications; H40.9 Unspecified glaucoma; D69.6 Thrombocytopenia, unspecified; D64.9 Anemia, unspecified; M21.372 Foot drop, left foot; Z79.84 Long term (current) use of oral hypoglycemic drugs; Z87.891 Personal history of nicotine dependence
CPT/HCPCS: 36415; 71046; 80048; 80053; 81003; 83605; 84145; 84443; 85025; 85610; 85730; 87636; 93005; 96361; 96372; 96374; 96375; 99285